=== PATIENT | female | born 1970 | race Caucasian/White ===

== ENCOUNTER → 2018-05-09 10:36 | Outpatient (CLI) | payer OTHER, SELFPAY ==
[2018-05-09 11:12] LABS: Add Manual Diff / Slide Review NO; Basophils Percent Auto 1.1 % (0-2); Eosinophils Percent Auto 6.6 % (2-4); Hemoglobin 14.9 g/dL (12.0-16.0); Mean Corpuscular HGB Conc 33.1 % (30-36); Mean Corpuscular Hemoglobin 28.2 PG (26-34); Mean Corpuscular Volume 85.4 fL (80-100); Neutrophils Absolute Auto 3900 /uL (3000-5900); Neutrophils Percent Auto 60.3 % (50-75); Platelet Count 323 X10^3/uL (150-400); Red Blood Cell Count 5.27 X10^6/uL (4.0-5.2); Red Cell Distribution Width 13.4 % (11.6-14.8); White Blood Cell Count 6.5 X10^3/uL (4.5-11.0)
[2018-05-09 11:18] LABS: Hemoglobin A1C% w Est Avg Glu 6.1 % (4.0-6.0)
[2018-05-09 11:30] LABS: Alanine Aminotransferase 22 IU/L (9-52); Albumin 4.7 g/dL (3.5-5.0); Albumin Globulin Ratio 1.3 (1.0-2.8); Alkaline Phosphatase 75 U/L (38-126); Aspartate Aminotransferase 23 IU/L (14-36); BUN Creatinine Ratio 23.3 (6-22); Bilirubin Total 0.7 mg/dL (0.2-1.3); Blood Urea Nitrogen 21 mg/dL (7-17); Calcium 9.5 mg/dL (8.4-10.2); Carbon Dioxide 26 mmol/L (22-32); Chloride 102 mmol/L (98-107); Cholesterol 161 mg/dL (140-199); Estimated Glomerular Filt Rate > 60.0 mL/min (>60); Globulin 3.6 g/dL (1.7-4.1); Glucose 102 mg/dL (70-100); HDL Cholesterol 52 mg/dL (40-60); HEMOLYSIS < 15 (0-50); LDL Cholesterol Calculated 85 mg/dL (<100); Potassium 4.9 mmol/L (3.4-5.1); Sodium 141 mmol/L (137-145); Total Protein 8.3 g/dL (6.3-8.2); Triglycerides 119 mg/dL (35-150)
[2018-05-09 12:44] LABS: Thyroid Stimulating Hormone 0.12 uIU/mL (0.47-4.68)
== END ==
PROVIDERS: Family Provider Family Medicine; PCP Family Medicine; Visit Provider Family Medicine
DX: I10 Essential (primary) hypertension (principal); E78.2 Mixed hyperlipidemia; E11.9 Type 2 diabetes mellitus without complications
CPT/HCPCS: 36415; 80053; 80061; 83036; 84443; 85025

== ENCOUNTER → 2018-06-17 07:08 | Outpatient (CLI) | payer OTHER, SELFPAY ==
[2018-06-17 09:38] LABS: Free T3, Triiodothyronine Free 3.27 pg/mL (2.77-5.27); Free T4, Direct Thyroxine 1.23 ng/dL (0.78-2.19)
[2018-06-17 09:52] LABS: Thyroid Stimulating Hormone 0.18 uIU/mL (0.47-4.68)
== END ==
PROVIDERS: Family Provider Family Medicine; PCP Family Medicine; Visit Provider Family Medicine
DX: R79.89 Other specified abnormal findings of blood chemistry (principal)
CPT/HCPCS: 36415; 84439; 84443; 84481

== ENCOUNTER → 2018-10-08 09:47 | Outpatient (CLI) | payer OTHER, SELFPAY ==
[2018-10-08 11:01] LABS: Alanine Aminotransferase 28 IU/L (9-52); Albumin 4.6 g/dL (3.5-5.0); Albumin Globulin Ratio 1.5 (1.0-2.8); Alkaline Phosphatase 73 U/L (38-126); Aspartate Aminotransferase 21 IU/L (14-36); BUN Creatinine Ratio 18.9 (6-22); Bilirubin Total 0.7 mg/dL (0.2-1.3); Blood Urea Nitrogen 17 mg/dL (7-17); Calcium 9.8 mg/dL (8.4-10.2); Carbon Dioxide 28 mmol/L (22-32); Chloride 101 mmol/L (98-107); Cholesterol 146 mg/dL (140-199); Estimated Glomerular Filt Rate > 60.0 mL/min (>60); Globulin 3.1 g/dL (1.7-4.1); Glucose 105 mg/dL (70-100); HDL Cholesterol 60 mg/dL (40-60); HEMOLYSIS < 15 (0-50); LDL Cholesterol Calculated 60 mg/dL (<100); Potassium 4.9 mmol/L (3.4-5.1); Sodium 142 mmol/L (137-145); Total Protein 7.7 g/dL (6.3-8.2); Triglycerides 128 mg/dL (35-150)
[2018-10-08 11:05] LABS: Hemoglobin A1C% w Est Avg Glu 6.5 % (4.0-6.0)
== END ==
PROVIDERS: PCP Family Medicine; Visit Provider Family Medicine
DX: E11.9 Type 2 diabetes mellitus without complications (principal); E78.2 Mixed hyperlipidemia; I10 Essential (primary) hypertension
CPT/HCPCS: 36415; 80053; 80061; 83036

== ENCOUNTER → 2018-11-26 12:50 | Outpatient (CLI) | payer OTHER, SELFPAY ==
--- NOTE | 2018-11-26 12:53 | DI.RAD.S_ITS ---
PROCEDURE: XR SHOULDER LT MIN 2V INDICATIONS: l arm pain TECHNIQUE: 3 views of the shoulder were acquired. COMPARISON: None. FINDINGS: Bones: No fractures or dislocations but there is mild a.c. joint osteoarthritic change. No suspicious bony lesions. Visualized ribs appear intact. Soft tissues: No suspicious soft tissue calcifications. IMPRESSION: Mild a.c. joint osteoarthritis, no trauma found. No effusion seen. Dictated by: Boom Trevino M.D. on 11/26/2018 at 13:14 Approved by: Boom Trevino M.D. on 11/26/2018 at 13:44
== END ==
PROVIDERS: Family Provider Family Medicine; PCP Family Medicine; Visit Provider Physician Assistant
DX: M25.512 Pain in left shoulder (principal); M19.012 Primary osteoarthritis, left shoulder
CPT/HCPCS: 73030

== ENCOUNTER → 2018-12-08 06:13 | Outpatient (CLI) | payer OTHER, SELFPAY ==
--- NOTE | 2018-12-08 06:15 | DI.MRI.S_ITS ---
PROCEDURE: MR SHOULDER LT WO CON INDICATIONS: L shoulder pain TECHNIQUE: Noncontrast oblique coronal T2 fast spin echo with fat saturation, oblique sagittal T1 spin echo and T2 fast spin echo with fat saturation, axial T1 spin echo and T2 fast spin echo with fat saturation through the shoulder. COMPARISON: [facility], CR, XR SHOULDER LT MIN 2V, 11/26/2018, 12:53. FINDINGS: Image quality: Excellent. Rotator cuff: There is a small focus of mild partial thickness bursal sided tearing involving the anterior fibers of the supraspinatus. There is mild associated intrasubstance edema tracking along the myotendinous junction consistent with a mild to moderate strain. The infraspinatus demonstrates minimal intrasubstance partial tearing proximally at the myotendinous junction. The subscapularis and teres minor appear intact. No fatty muscular atrophy. Bones and bursae: No bone marrow contusions or fractures. There is mild acromioclavicular joint degeneration. The acromion demonstrates conventional anatomy, without an os acromiale. Trace subacromial-subdeltoid bursal fluid is present. Capsule and soft tissues: There is mild partial tearing of the anteroinferior labrum. In the absence of intra-articular contrast, the labrum and glenohumeral ligaments are incompletely evaluated. There is edema along the inferior glenohumeral ligaments suggestive of a mild sprain as well as partial tearing along the humeral attachment of the anterior inferior glenohumeral ligament. The long head of the biceps tendon demonstrates normal location and morphology. The rotator interval demonstrates mild nonspecific edema which may represent a capsulitis or fibrosis.. The coracohumeral ligament is normal in thickness. IMPRESSION: 1. Small focus of mild partial thickness bursal sided tearing involving the anterior fibers of the supraspinatus as well as a [id number] sprain at its myotendinous junction. There is minimal partial tearing at the myotendinous junction of the infraspinatus. 2. Edema along the inferior glenohumeral ligaments with probable [id number] partial tearing at the humeral attachment of the inferior glenohumeral ligament. Partial tearing is also noted in the anteroinferior labrum. Further evaluation may be obtained with an MR arthrogram if clinically indicated. 3. Mild acromioclavicular joint degeneration with a trace amount of subacromial/subdeltoid bursa fluid. Dictated by: Vinay Wiseman M.D. on 12/08/2018 at 9:13 Approved by: Vinay Wiseman M.D. on 12/08/2018 at 9:30
== END ==
PROVIDERS: Family Provider Family Medicine; PCP Family Medicine; Visit Provider Physician Assistant
DX: M25.512 Pain in left shoulder (principal); M75.112 Incomplete rotator cuff tear or rupture of left shoulder, not specified as traumatic; M19.012 Primary osteoarthritis, left shoulder; R60.9 Edema, unspecified
CPT/HCPCS: 73221

== ENCOUNTER → 2019-01-05 10:54 | Outpatient (CLI) | payer OTHER, SELFPAY ==
[2019-01-05 13:50] LABS: Hemoglobin A1C% w Est Avg Glu 6.1 % (4.0-6.0)
== END ==
PROVIDERS: PCP Family Medicine; Visit Provider Family Medicine
DX: E11.9 Type 2 diabetes mellitus without complications (principal)
CPT/HCPCS: 36415; 83036

== ENCOUNTER → 2019-02-04 09:29 | Outpatient (CLI) | payer OTHER, SELFPAY ==
--- NOTE | 2019-02-04 | DI.MG.S_ITS ---
BILATERAL DIGITAL SCREENING MAMMOGRAM 3D/2D WITH CAD: 02/04/2019 CLINICAL: Routine screening. Comparison is made to exams dated: 02/03/2018 mammogram and 02/01/2017 mammogram - [facility]. The tissue of both breasts is heterogeneously dense. This may lower the sensitivity of mammography. Current study was also evaluated with a Computer Aided Detection (CAD) system. There are benign calcifications in the right breast. No significant masses, calcifications, or other findings are seen in either breast. There has been no significant interval change. IMPRESSION: There is no mammographic evidence of malignancy. A 1 year screening mammogram is recommended. This exam was interpreted at Station ID: [id number]. NOTE: For mammograms, a report in lay terms will be sent to the patient. Approximately 15% of breast malignancies will not be visualized mammographically. In the management of a palpable breast mass, a negative mammogram must not discourage biopsy of a clinically suspicious lesion. Electronically Signed By: Haydee [email or web address]/[email or web address]:02/04/2019 15:18:06 letter sent: Normal Exam ACR BI-RADS Category 2: Benign Finding(s) [id number]
== END ==
PROVIDERS: PCP Family Medicine; Visit Provider Family Medicine
DX: Z12.31 Encounter for screening mammogram for malignant neoplasm of breast (principal)
CPT/HCPCS: 77063; 77067

== ENCOUNTER → 2019-06-26 07:31 | Outpatient (CLI) | payer OTHER, SELFPAY ==
[2019-06-26 08:59] LABS: Add Manual Diff / Slide Review NO; Basophils Absolute Auto 100 /uL (0-100); Basophils Percent Auto 1.4 % (0-2); Eosinophils Absolute Auto 500 /uL (0-450); Eosinophils Percent Auto 7.4 % (2-4); Hematocrit 42.5 % (36-46); Hemoglobin 14.4 g/dL (12.0-16.0); Lymphocytes Absolute Auto 1600 /uL (1100-4500); Mean Corpuscular HGB Conc 33.8 % (30-36); Mean Corpuscular Hemoglobin 28.8 PG (26-34); Mean Corpuscular Volume 85.3 fL (80-100); Monocytes Absolute Auto 600 /uL (0-900); Monocytes Percent Auto 8.4 % (3-14); Neutrophils Absolute Auto 3800 /uL (1500-7000); Neutrophils Percent Auto 57.8 % (50-75); Platelet Count 310 X10^3/uL (150-400); Red Blood Cell Count 4.98 X10^6/uL (4.0-5.2); Red Cell Distribution Width 14.1 % (11.6-14.8); White Blood Cell Count 6.6 X10^3/uL (4.5-11.0)
[2019-06-26 09:18] LABS: Alanine Aminotransferase 22 IU/L (9-52); Albumin 4.5 g/dL (3.5-5.0); Albumin Globulin Ratio 1.4 (1.0-2.8); Alkaline Phosphatase 75 U/L (38-126); Aspartate Aminotransferase 22 IU/L (14-36); BUN Creatinine Ratio 22.2 (6-22); Bilirubin Total 0.7 mg/dL (0.2-1.3); Blood Urea Nitrogen 20 mg/dL (7-17); Calcium 9.6 mg/dL (8.4-10.2); Carbon Dioxide 27 mmol/L (22-32); Chloride 101 mmol/L (98-107); Cholesterol 132 mg/dL (140-199); Estimated Glomerular Filt Rate > 60.0 mL/min (>60); Globulin 3.3 g/dL (1.7-4.1); Glucose 100 mg/dL (70-100); HDL Cholesterol 53 mg/dL (40-60); HEMOLYSIS < 15 (0-50); LDL Cholesterol Calculated 53 mg/dL (<100); Potassium 3.8 mmol/L (3.4-5.1); Sodium 140 mmol/L (137-145); Total Protein 7.8 g/dL (6.3-8.2); Triglycerides 129 mg/dL (35-150)
[2019-06-26 09:21] LABS: Creatinine Urine Random 212.4 mg/dL; Hemoglobin A1C% w Est Avg Glu 6.2 % (4.0-6.0)
[2019-06-26 09:23] LABS: Microalbumi Creatinin Ratio Ur 8.4 ug/mg CR (<30); Microalbumin Urine Random 1.8 mg/dL (0-1.6)
[2019-06-26 09:49] LABS: Thyroid Stimulating Hormone 1.33 uIU/mL (0.47-4.68)
== END ==
PROVIDERS: PCP Family Medicine; Visit Provider Family Medicine
DX: E78.2 Mixed hyperlipidemia (principal); E11.9 Type 2 diabetes mellitus without complications; I10 Essential (primary) hypertension; Z51.81 Encounter for therapeutic drug level monitoring
CPT/HCPCS: 36415; 80053; 80061; 82043; 82570; 83036; 84443; 85025

== ENCOUNTER 2019-08-03 13:00 | Outpatient (RCR) | payer OTHER, SELFPAY ==
--- NOTE | 2019-01-15 16:29 | PT.OIE ---
Current Diagnoses Pain in left shoulder (01/15/19) Unspecified rotator cuff tear or rupture of left shoulder, not specified as traumatic (01/15/19) Past Medical History (Last Reviewed 05/09/18 @ 10:05 by Cherelle Lopez DO) Diabetes (Chronic 2015) Hyperlipemia (Chronic Unknown) Hypertension (Chronic Unknown) Shingles (Chronic Unknown) Provider Visit Care Team Role Provider Type Cherelle Lopez DO Primary Care Provider Physician Specialty: Family Practice Address: [address] [place] [address], [id number] Email: [email or web address] Cisneros Attending Provider Advanced Yarding And Folding Machine Operator Specialty: [facility] Practice Address: [address] [place] [address], [id number] Email: Physical Therapy Initial Evaluation PT-OP-A Visit Information Start: 01/15/19 11:28 Freq: Status: Active Protocol: Document 01/15/19 10:30 AMB (Rec: 01/15/19 15:48 AMB [email or web address]) Out-Patient Physical Therapy Visit Information Visit Information Visit Type Initial Evaluation Visit Start Time 10:30 Visit Stop Time 11:15 Total Visit Minutes 45 Visit Number 1 PT-OP-B Current Condition Start: 01/15/19 11:28 Freq: Status: Active Protocol: Document 01/15/19 10:30 AMB (Rec: 01/15/19 15:48 AMB [email or web address]) Current Condition History of Current Condition Onset Date Oct 21 or Nov 22 Current Complaints Left shoulder pain History of Current Condition Shamika noted increased shoulder pain after lifting her mother up from the floor multiple times. She has been noticing increased pain since. 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 She has not been using a sling , but sometimes hooks her arm in her shirt becaue it feels better. Prior Treatments and Tests MRI on 12/08/18 showed mild supraspinatus tear, minimal partial tearing at mytendinous junction of infraspinatus, mild-moderate partial tear at inferiro glenohumeral ligament , and partial tearing at anteroinferior labrum. Prior Functional Status Baseline Function- ADL's Independent Baseline Function- Mobility Independent Current Functional Impairments (Reported) Functional Limitations- ADL's She finds upper body dressing and washing her hair painful. 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 Personal Factors Other Personal Factors That May Effect DMII Therapy/Recovery PT-OP-C Subjective Start: 01/15/19 11:28 Freq: Status: Active Protocol: Document 01/15/19 10:30 AMB (Rec: 01/15/19 15:48 AMB [email or web address]) Patient Questionnaires Quick Dash- Upper Extremity Quick Dash UE Score 43 Quick Dash UE Impairment 40 to 59% Impaired (Score 40- 59) OP-PT Pain Assessment Pain Assessment Grid Paper Pain Assessment Grid Completed Yes Location Left Shoulder Pain Location Details Anterior shoulder and down the arm Intensity 5 Scale Used Numeric (1 - 10) PT-OP-K Range of Motion Start: 01/15/19 11:28 Freq: Status: Active Protocol: Document 01/15/19 10:30 AMB (Rec: 01/15/19 16:00 AMB [email or web address]) Shoulder Goniometric Range of Motion Shoulder Measured in Degrees Right Active Shoulder ROM WFL Yes Left Passive Testing Position Supine Flexion 90 Abduction 65 External Rotation at 0 degrees Abduction 24 Left Active Testing Position Standing Flexion 80 Abduction 45 Internal Rotation Behind Back (text) gluteals PT-OP-M Strength Start: 01/15/19 11:28 Freq: Status: Active Protocol: Document 01/15/19 10:30 AMB (Rec: 01/15/19 16:00 AMB [email or web address]) Shoulder Strength Shoulder Manual Muscle Testing Right Flexion 3- Fair- Extension 3+ Fair+ Abduction (C5) 2+ Poor+ External Rotation 3 Fair Internal Rotation 3 Fair PT-OP-Q Treatments Start: 01/15/19 11:28 Freq: Status: Active Protocol: Document 01/15/19 10:30 AMB (Rec: 01/15/19 16:00 AMB [email or web address]) Therapeutic Exercises Supine Exercises 1 Supine Exercise Name AAROM: flex, abd, ER Reps/Minutes 2 Comments cane Standing Exercises 1 Standing Exercise Name isometrics: ER, ext, flx Reps/Minutes 2 PT-OP-T Assessment and Plan Start: 01/15/19 11:28 Freq: Status: Active Protocol: Document 01/15/19 10:30 AMB (Rec: 01/15/19 16:04 AMB [email or web address]) Physical Therapy Assessment Rehab Potential Rehabilitation Potential Good Evaluation Complexity Number of Personal Factors/Comorbidities 1-2 Number of Body Systems Impaired 4 or More Clinical Presentation at Evaluation Evolving Impairments Impairments Functional Activities Pain ROM Strength Goals Three Impairment ADLs Short Term Goal (STG) Shamika will perform all upper body dressing with 2/10 pain or less. STG Duration 4 weeks Data Transcriber Goal (LTG) Shamika will wash her hair with her left arm without an increase in pain. LTG Duration 8 weeks Two Impairment Strength Short Term Goal (STG) Shamika will lift a 10# box from the floor to shoulder height with good body mechanics without an increase in baseline pain. STG Duration 4 weeks Senior Care Goal (LTG) Shamika will be independent and consistent with a HEP for ROM and strengthening. LTG Duration 8 weeks One Impairment ROM Short Term Goal (STG) Shamika will increase her PROM to 120 degrees of flexion and abduction. STG Duration 4 weeks Senior Care Goal (LTG) Shamika will increase her AROM to 120 degress of flexion and abduction. LTG Duration 8 weeks Assessment Summary Assessment Shamika attends physical therapy with multiple small partial tears in her rotator cuff, labrum, and inferior glenohumeral ligament. She has been very protective of the shoulder due to pain (that has been increasing) and is now losing passive range of motion. 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 Physical Therapy Plan Frequency and Duration Frequency of Treatment 2x/Week Duration of Treatment 8 weeks Plan of Care Start Date 01/15/19 Plan of Care End Date 03/12/19 Therapeutic Interventions Therapeutic Interventions Aquatic Therapy Home Exercise Program Joint Mobilizations Manual Therapy Neuromuscular Re-education Self-Care/Home Management Soft Tissue Mobilization Taping Therapeutic Activities Therapeutic Exercises Modalities Cold Pack/Ice Massage Electric Stimulation Hot Packs Ultrasound Next Visit Focus/Plan Next Note Type Treatment Note Next Visit Plan Progress PROM and AAROM then progress to scapular stabilization
--- NOTE | 2019-01-15 16:29 | PT.OPPOC ---
Current Diagnoses Pain in left shoulder (01/15/19) Unspecified rotator cuff tear or rupture of left shoulder, not specified as traumatic (01/15/19) Provider Visit Care Team Role Provider Type Cherelle Lopez DO Primary Care Provider Physician Specialty: [facility] Address: [address] [place] [address], [id number] Email: [email or web address] CHELA Cisneros Attending Provider Advanced Chief Of Party Specialty: [facility] Address: [address] [place] [address], [id number] Email: Plan Of Care PT-OP-T Assessment and Plan Start: 01/15/19 11:28 Freq: Status: Active Protocol: Document 01/15/19 10:30 AMB (Rec: 01/15/19 16:04 AMB [email or web address]) Physical Therapy Assessment Rehab Potential Rehabilitation Potential Good Evaluation Complexity Number of Personal Factors/Comorbidities 1-2 Number of Body Systems Impaired 4 or More Clinical Presentation at Evaluation Evolving Impairments Impairments Functional Activities Pain ROM Strength Goals Three Impairment ADLs Short Term Goal (STG) Shamika will perform all upper body dressing with 2/10 pain or less. STG Duration 4 weeks [facility] Goal (LTG) Shamika will wash her hair with her left arm without an increase in pain. LTG Duration 8 weeks Two Impairment Strength Short Term Goal (STG) Shamika will lift a 10# box from the floor to shoulder height with good body mechanics without an increase in baseline pain. STG Duration 4 weeks Cart Attendant Goal (LTG) Shamika will be independent and consistent with a HEP for ROM and strengthening. LTG Duration 8 weeks One Impairment ROM Short Term Goal (STG) Shamika will increase her PROM to 120 degrees of flexion and abduction. STG Duration 4 weeks Cart Attendant Goal (LTG) Shamika will increase her AROM to 120 degress of flexion and abduction. LTG Duration 8 weeks Assessment Summary Assessment Shamika attends physical therapy with multiple small partial tears in her rotator cuff, labrum, and inferior glenohumeral ligament. She has been very protective of the shoulder due to pain (that has been increasing) and is now losing passive range of motion. 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 Physical Therapy Plan Frequency and Duration Frequency of Treatment 2x/Week Duration of Treatment 8 weeks Plan of Care Start Date 01/15/19 Plan of Care End Date 03/12/19 Therapeutic Interventions Therapeutic Interventions Aquatic Therapy Home Exercise Program Joint Mobilizations Manual Therapy Neuromuscular Re-education Self-Care/Home Management Soft Tissue Mobilization Taping Therapeutic Activities Therapeutic Exercises Modalities Cold Pack/Ice Massage Electric Stimulation Hot Packs Ultrasound Next Visit Focus/Plan Next Note Type Treatment Note Next Visit Plan Progress PROM and AAROM then progress to scapular stabilization Plan of Care Dates Plan of Care Start Date 01/15/19 Plan of Care End Date 03/12/19 Please Sign and Return: I have reviewed this Plan of Care and certify that the skilled therapy services above are required to meet the patient?s needs. Physician Signature Date Printed Name and Credentials Clinical Instructor Signature Printed Name and Credentials
--- NOTE | 2019-01-19 16:06 | PT.OTN ---
Current Diagnoses Pain in left shoulder (01/19/19) Physical Therapy Treatment Note PT-OP-A Visit Information Start: 01/15/19 11:28 Freq: Status: Active Protocol: Document 01/19/19 13:45 BS (Rec: 01/19/19 15:58 BS [email or web address]) Out-Patient Physical Therapy Visit Information Visit Information Visit Type Treatment Note Visit Start Time 01:45 Visit Stop Time 02:28 Total Visit Minutes 43 Visit Number 2 PT-OP-B Current Condition Start: 01/15/19 11:28 Freq: Status: Active Protocol: Document 01/15/19 10:30 AMB (Rec: 01/15/19 15:48 AMB [email or web address]) Current Condition History of Current Condition Onset Date Oct 21 or Nov 22 Current Complaints Left shoulder pain History of Current Condition Shamika noted increased shoulder pain after lifting her mother up from the floor multiple times. She has been noticing increased pain since. 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 She has not been using a sling , but sometimes hooks her arm in her shirt becaue it feels better. Prior Treatments and Tests MRI on 12/08/18 showed mild supraspinatus tear, minimal partial tearing at mytendinous junction of infraspinatus, mild-moderate partial tear at inferiro glenohumeral ligament , and partial tearing at anteroinferior labrum. Prior Functional Status Baseline Function- ADL's Independent Baseline Function- Mobility Independent Current Functional Impairments (Reported) Functional Limitations- ADL's She finds upper body dressing and washing her hair painful. 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 Personal Factors Other Personal Factors That May Effect DMII Therapy/Recovery PT-OP-C Subjective Start: 01/15/19 11:28 Freq: Status: Active Protocol: Document 01/19/19 13:45 BS (Rec: 01/19/19 15:35 BS [email or web address]) OP-PT Subjective Patient Comments Patient Comments Pt reports slight improvements in ability to move LUE and states she has been compliant with prescribed HEP for L shoulder AAROM. Continues to have difficulty with L shoulder ROM, pain, and weakness. Patient Reported Progress Improving PT-OP-K Range of Motion Start: 01/15/19 11:28 Freq: Status: Active Protocol: Document 01/15/19 10:30 AMB (Rec: 01/15/19 16:00 AMB [email or web address]) Shoulder Goniometric Range of Motion Shoulder Measured in Degrees Right Active Shoulder ROM WFL Yes Left Passive Testing Position Supine Flexion 90 Abduction 65 External Rotation at 0 degrees Abduction 24 Left Active Testing Position Standing Flexion 80 Abduction 45 Internal Rotation Behind Back (text) gluteals PT-OP-M Strength Start: 01/15/19 11:28 Freq: Status: Active Protocol: Document 01/15/19 10:30 AMB (Rec: 01/15/19 16:00 AMB [email or web address]) Shoulder Strength Shoulder Manual Muscle Testing Right Flexion 3- Fair- Extension 3+ Fair+ Abduction (C5) 2+ Poor+ External Rotation 3 Fair Internal Rotation 3 Fair PT-OP-Q Treatments Start: 01/15/19 11:28 Freq: Status: Active Protocol: Document 01/19/19 13:45 BS (Rec: 01/19/19 15:35 BS [email or web address]) Therapeutic Exercises Supine Exercises 2 Supine Exercise Name Serratus Punch at 60 deg shoulder flexion Side left Reps/Minutes x5 Comments Pt reports aching pain into L bicep 1 Supine Exercise Name Supine LUE AAROM cane flexion, ER/IR Side bilateral Reps/Minutes x10 each Comments pain with AAROM cane ER Sitting Exercises 2 Sitting Exercise Name Shoulder Rolls Posterior Direction Side bilateral Reps/Minutes x15 1 Sitting Exercise Name AAROM Pulleys (flexion & 20 deg scapular plane) Side left Equipment Used Pulleys Reps/Minutes x15 each Standing Exercises 2 Standing Exercise Name Scapular Retraction Side bilateral Resistance #1 band Reps/Minutes x10, 2 hold 1 Standing Exercise Name L shoulder isometrics (flexion , extension, abduction) Side left Reps/Minutes x10 each, 3-5 hold Manual Therapy Treatment Joint Mobilizations 1 Joint L Glenohumeral (posterior, inferior) Grade II Body Position Supine Reps/Duration 4x30 each PT-OP-R Modalities Start: 01/15/19 11:28 Freq: Status: Active Protocol: Document 01/19/19 13:45 BS (Rec: 01/19/19 15:49 BS [email or web address]) Hot Pack/Cold Pack Treatment Cold Pack Location L shoulder Patient Position Hooklying Treatment Duration (minutes) 10 Patient Tolerance Good PT-OP-T Assessment and Plan Start: 01/15/19 11:28 Freq: Status: Active Protocol: Document 01/19/19 13:45 BS (Rec: 01/19/19 15:56 BS [email or web address]) Physical Therapy Assessment Rehab Potential Rehabilitation Potential Fair Progress Towards Goals Progress Towards Goals Progressing Toward Goals Progress Comments Pt making slow progress toward goals, continues to report dull burning pain/ache in L upper arm, significant limitations in ROM but is moving her shoulder more. Pt reports compliance with current prescribed HEP. Assessment Summary Assessment Pt tolerated PT session well today. AAROM cane ER is significantly limited and painful for pt. Pt educated of importance of LUE mobility within pain-free ROM. Addition of posterior shoulder rolls, AAROM kim flexion & 20 deg scaption, and #1 resistance band B shoulder retraction. L glenohumeral joint mobs well tolerated, PROM ER painful and limited. Session concluded with CP x10min for pain and inflammation reduction. Continue POC and progress as tolerated. Physical Therapy Plan Next Visit Focus/Plan Next Note Type Treatment Note Next Visit Plan Continue with AAROM, L GH joint mobilizations, L shoulder isometrics, and progress to more PROM as tolerated. Assess response to CP.
--- NOTE | 2019-01-21 15:34 | PT.OTN ---
Current Diagnoses Pain in left shoulder (01/21/19) Physical Therapy Treatment Note PT-OP-A Visit Information Start: 01/15/19 11:28 Freq: Status: Active Protocol: Document 01/21/19 09:45 BS (Rec: 01/21/19 11:49 BS [email or web address]) Out-Patient Physical Therapy Visit Information Visit Information Visit Type Treatment Note Visit Start Time 09:45 Visit Stop Time 10:28 Total Visit Minutes 43 Visit Number 3 PT-OP-B Current Condition Start: 01/15/19 11:28 Freq: Status: Active Protocol: Document 01/15/19 10:30 AMB (Rec: 01/15/19 15:48 AMB [email or web address]) Current Condition History of Current Condition Onset Date Oct 21 or Nov 22 Current Complaints Left shoulder pain History of Current Condition Shamika noted increased shoulder pain after lifting her mother up from the floor multiple times. She has been noticing increased pain since. 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 She has not been using a sling , but sometimes hooks her arm in her shirt becaue it feels better. Prior Treatments and Tests MRI on 12/08/18 showed mild supraspinatus tear, minimal partial tearing at mytendinous junction of infraspinatus, mild-moderate partial tear at inferiro glenohumeral ligament , and partial tearing at anteroinferior labrum. Prior Functional Status Baseline Function- ADL's Independent Baseline Function- Mobility Independent Current Functional Impairments (Reported) Functional Limitations- ADL's She finds upper body dressing and washing her hair painful. 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 Personal Factors Other Personal Factors That May Effect DMII Therapy/Recovery PT-OP-C Subjective Start: 01/15/19 11:28 Freq: Status: Active Protocol: Document 01/21/19 09:45 BS (Rec: 01/21/19 11:49 BS [email or web address]) OP-PT Subjective Patient Comments Patient Comments Pt reports L shoulder muscle aching when waking the morning following last PT session, subsided with activity throughout day. PT-OP-K Range of Motion Start: 01/15/19 11:28 Freq: Status: Active Protocol: Document 01/15/19 10:30 AMB (Rec: 01/15/19 16:00 AMB [email or web address]) Shoulder Goniometric Range of Motion Shoulder Measured in Degrees Right Active Shoulder ROM WFL Yes Left Passive Testing Position Supine Flexion 90 Abduction 65 External Rotation at 0 degrees Abduction 24 Left Active Testing Position Standing Flexion 80 Abduction 45 Internal Rotation Behind Back (text) gluteals PT-OP-M Strength Start: 01/15/19 11:28 Freq: Status: Active Protocol: Document 01/15/19 10:30 AMB (Rec: 01/15/19 16:00 AMB [email or web address]) Shoulder Strength Shoulder Manual Muscle Testing Right Flexion 3- Fair- Extension 3+ Fair+ Abduction (C5) 2+ Poor+ External Rotation 3 Fair Internal Rotation 3 Fair PT-OP-Q Treatments Start: 01/15/19 11:28 Freq: Status: Active Protocol: Document 01/21/19 09:45 BS (Rec: 01/21/19 11:49 BS [email or web address]) Therapeutic Exercises Supine Exercises 2 Supine Exercise Name Serratus punch 70 deg L shoudler flexion Side left Reps/Minutes x10 Comments less pain today with exercise following L GH joint mobs 1 Supine Exercise Name Supine LUE AAROM flexion Reps/Minutes x15 each Comments held ER today d/t increased pain during. Sitting Exercises 2 Sitting Exercise Name Shoulder rolls, posterior Reps/Minutes x20 1 Sitting Exercise Name AAROM Pulleys (flexion, 20 deg scaption) Side left Equipment Used Pulleys Reps/Minutes 2 min each Standing Exercises 3 Standing Exercise Name Serratus punch/scap protraction with small ball Side left Reps/Minutes x10 2 Standing Exercise Name Scapular retraction Side bilateral Resistance #1 Reps/Minutes x10 without resistance, x10 with #1 band 1 Standing Exercise Name L shoulder isometrics (flexion , extension, abduction, ER) Side left Reps/Minutes x10 each, 5 hold Manual Therapy Treatment Joint Mobilizations 1 Joint L Glenohumeral (posterior, anterior, inferior) Grade II Body Position Supine Reps/Duration total 8 min Manual Techniques 1 Type PROM L shoulder flexion, abduction, ER Body Position Hooklying Reps/Duration 10 min Comments following joint mobs PT-OP-R Modalities Start: 01/15/19 11:28 Freq: Status: Active Protocol: Document 01/21/19 09:45 BS (Rec: 01/21/19 11:49 BS [email or web address]) Hot Pack/Cold Pack Treatment Cold Pack Comments Pt declined need for CP today at end of session. PT-OP-T Assessment and Plan Start: 01/15/19 11:28 Freq: Status: Active Protocol: Document 01/21/19 09:45 BS (Rec: 01/21/19 11:49 BS [email or web address]) Physical Therapy Assessment Assessment Summary Assessment Pt tolerated session well today with increased repetitions of scapular strengthening isometrics and additional ther ex. Continue POC and progress with AAROM, PROM as tolerated. Physical Therapy Plan Next Visit Focus/Plan Next Visit Plan AAROM progression, scapular isometrics, PROM as tolerated. Trial standing bicep curls, tricep ext, lat pulldowns.
--- NOTE | 2019-01-26 15:47 | PT.OTN ---
Current Diagnoses Pain in left shoulder (01/26/19) Physical Therapy Treatment Note PT-OP-A Visit Information Start: 01/15/19 11:28 Freq: Status: Active Protocol: Document 01/26/19 11:58 BS (Rec: 01/26/19 12:08 BS [email or web address]) Out-Patient Physical Therapy Visit Information Visit Information Visit Type Treatment Note Visit Start Time 08:15 Visit Stop Time 09:00 Total Visit Minutes 45 Visit Number 4 PT-OP-B Current Condition Start: 01/15/19 11:28 Freq: Status: Active Protocol: Document 01/15/19 10:30 AMB (Rec: 01/15/19 15:48 AMB [email or web address]) Current Condition History of Current Condition Onset Date Oct 21 or Nov 22 Current Complaints Left shoulder pain History of Current Condition Shamika noted increased shoulder pain after lifting her mother up from the floor multiple times. She has been noticing increased pain since. 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 She has not been using a sling , but sometimes hooks her arm in her shirt becaue it feels better. Prior Treatments and Tests MRI on 12/08/18 showed mild supraspinatus tear, minimal partial tearing at mytendinous junction of infraspinatus, mild-moderate partial tear at inferiro glenohumeral ligament , and partial tearing at anteroinferior labrum. Prior Functional Status Baseline Function- ADL's Independent Baseline Function- Mobility Independent Current Functional Impairments (Reported) Functional Limitations- ADL's She finds upper body dressing and washing her hair painful. 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 Personal Factors Other Personal Factors That May Effect DMII Therapy/Recovery PT-OP-C Subjective Start: 01/15/19 11:28 Freq: Status: Active Protocol: Document 01/26/19 11:58 BS (Rec: 01/26/19 12:08 BS [email or web address]) OP-PT Subjective Patient Comments Patient Comments Pt states that her shoulder felt fine over the weekend, no muscle soreness following last session. PT-OP-K Range of Motion Start: 01/15/19 11:28 Freq: Status: Active Protocol: Document 01/15/19 10:30 AMB (Rec: 01/15/19 16:00 AMB [email or web address]) Shoulder Goniometric Range of Motion Shoulder Measured in Degrees Right Active Shoulder ROM WFL Yes Left Passive Testing Position Supine Flexion 90 Abduction 65 External Rotation at 0 degrees Abduction 24 Left Active Testing Position Standing Flexion 80 Abduction 45 Internal Rotation Behind Back (text) gluteals PT-OP-M Strength Start: 01/15/19 11:28 Freq: Status: Active Protocol: Document 01/15/19 10:30 AMB (Rec: 01/15/19 16:00 AMB [email or web address]) Shoulder Strength Shoulder Manual Muscle Testing Right Flexion 3- Fair- Extension 3+ Fair+ Abduction (C5) 2+ Poor+ External Rotation 3 Fair Internal Rotation 3 Fair PT-OP-Q Treatments Start: 01/15/19 11:28 Freq: Status: Active Protocol: Document 01/26/19 11:58 BS (Rec: 01/26/19 12:08 BS [email or web address]) Cardio Equipment Upper Body Ergometer (UBE) Duration (Minutes) 3 Seat Position 10 Other forward/backward 1.5 min each Therapeutic Exercises Supine Exercises 2 Supine Exercise Name Serratus Punch Side left Reps/Minutes 1x10 no wt, 1x10 1# Comments No pain. Sidelying Exercises 1 Sidelying Exercise Name shoulder ER Side left Resistance no weight Reps/Minutes x12 Comments VCs for correct form Sitting Exercises 1 Sitting Exercise Name AAROM Pulleys (flexion, 20 deg scaption) Side left Equipment Used Pulleys Standing Exercises 4 Standing Exercise Name Wall walks Side left Reps/Minutes x20 Comments Pain free range 2 Standing Exercise Name Scapular retraction Side bilateral Resistance #1 band Reps/Minutes 2x8 1 Standing Exercise Name Isometrics: flex/ext/abd/ER/IR Side left Reps/Minutes 2x10 each, 5 sec hold Manual Therapy Treatment Joint Mobilizations 1 Joint L Glenohumeral (posterior, anterior, inferior) Grade II Body Position Supine Reps/Duration 7 min Comments Joint mobilizations followed by PROM flex/abduction/ER. PT-OP-R Modalities Start: 01/15/19 11:28 Freq: Status: Active Protocol: Document 01/26/19 11:58 BS (Rec: 01/26/19 12:08 BS [email or web address]) Hot Pack/Cold Pack Treatment Cold Pack Location L shoulder Patient Position Hooklying Patient Tolerance Good Comments Pt requested CP at end of session folowing additional strengthening exercises. PT-OP-T Assessment and Plan Start: 01/15/19 11:28 Freq: Status: Active Protocol: Document 01/26/19 11:58 BS (Rec: 01/26/19 12:08 BS [email or web address]) Physical Therapy Assessment Assessment Summary Assessment Pt's flexion/abd ROM improving but still not WFL. Pt demo's decreased strength of L RC musculature. Continue with ROM /Strengthening as tolerated. Physical Therapy Plan Next Visit Focus/Plan Next Visit Plan Progression of RC strengthening. Add bicep curls , triceps extension, lat pulldowns next session.
--- NOTE | 2019-01-28 11:12 | PT.OTN ---
Current Diagnoses Pain in left shoulder (01/28/19) Physical Therapy Treatment Note PT-OP-A Visit Information Start: 01/15/19 11:28 Freq: Status: Active Protocol: Document 01/28/19 10:30 DCW (Rec: 01/28/19 11:12 DCW [id number]) Out-Patient Physical Therapy Visit Information Visit Information Visit Type Treatment Note Visit Start Time 10:30 Visit Stop Time 11:15 Total Visit Minutes 45 Visit Number 5 PT-OP-B Current Condition Start: 01/15/19 11:28 Freq: Status: Active Protocol: Document 01/15/19 10:30 AMB (Rec: 01/15/19 15:48 AMB [email or web address]) Current Condition History of Current Condition Onset Date Oct 21 or Nov 22 Current Complaints Left shoulder pain History of Current Condition Shamika noted increased shoulder pain after lifting her mother up from the floor multiple times. She has been noticing increased pain since. 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 She has not been using a sling , but sometimes hooks her arm in her shirt becaue it feels better. Prior Treatments and Tests MRI on 12/08/18 showed mild supraspinatus tear, minimal partial tearing at mytendinous junction of infraspinatus, mild-moderate partial tear at inferiro glenohumeral ligament , and partial tearing at anteroinferior labrum. Prior Functional Status Baseline Function- ADL's Independent Baseline Function- Mobility Independent Current Functional Impairments (Reported) Functional Limitations- ADL's She finds upper body dressing and washing her hair painful. 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 Personal Factors Other Personal Factors That May Effect DMII Therapy/Recovery PT-OP-C Subjective Start: 01/15/19 11:28 Freq: Status: Active Protocol: Document 01/28/19 10:30 DCW (Rec: 01/28/19 11:12 DCW [id number]) OP-PT Subjective Patient Comments Patient Comments Pt reports she really flaired up her shoulder at work yesterday after using a heavy- duty stapler without thinking about it. PT-OP-K Range of Motion Start: 01/15/19 11:28 Freq: Status: Active Protocol: Document 01/15/19 10:30 AMB (Rec: 01/15/19 16:00 AMB [email or web address]) Shoulder Goniometric Range of Motion Shoulder Measured in Degrees Right Active Shoulder ROM WFL Yes Left Passive Testing Position Supine Flexion 90 Abduction 65 External Rotation at 0 degrees Abduction 24 Left Active Testing Position Standing Flexion 80 Abduction 45 Internal Rotation Behind Back (text) gluteals PT-OP-M Strength Start: 01/15/19 11:28 Freq: Status: Active Protocol: Document 01/15/19 10:30 AMB (Rec: 01/15/19 16:00 AMB [email or web address]) Shoulder Strength Shoulder Manual Muscle Testing Right Flexion 3- Fair- Extension 3+ Fair+ Abduction (C5) 2+ Poor+ External Rotation 3 Fair Internal Rotation 3 Fair PT-OP-Q Treatments Start: 01/15/19 11:28 Freq: Status: Active Protocol: Document 01/28/19 10:30 DCW (Rec: 01/28/19 11:12 DCW [id number]) Cardio Equipment Upper Body Ergometer (UBE) Duration (Minutes) 3 Seat Position 10 Other forward/backward 1.5 min each Therapeutic Exercises Supine Exercises 2 Supine Exercise Name Serratus Punch Side left Reps/Minutes 2x10 Comments No pain. Sitting Exercises 2 Sitting Exercise Name Shoulder rolls, posterior Reps/Minutes x20 1 Sitting Exercise Name AAROM Pulleys (flexion, 20 deg scaption) Side left Equipment Used Pulleys Standing Exercises 5 Standing Exercise Name Shoulder Extension Side bilateral Resistance Lv 1 Equipment Used T-band 4 Standing Exercise Name Wall walks - flex/scaption Side left Reps/Minutes x20 Comments Pain free range 3 Standing Exercise Name Serratus punch/scap protraction with small ball Side left Reps/Minutes x10 2 Standing Exercise Name Scapular retraction Side bilateral Resistance #2 band Reps/Minutes 2x8 Manual Therapy Treatment Joint Mobilizations 1 Joint L Glenohumeral (posterior, anterior, inferior) Grade II Body Position Supine Reps/Duration 6 min Comments Joint mobilizations followed by PROM flex/abduction/ER. Manual Techniques 1 Type PROM L shoulder flexion, abduction, ER Body Position Hooklying Reps/Duration 10 min Comments following joint mobs PT-OP-R Modalities Start: 01/15/19 11:28 Freq: Status: Active Protocol: Document 01/26/19 11:58 BS (Rec: 01/26/19 12:08 BS [email or web address]) Hot Pack/Cold Pack Treatment Cold Pack Location L shoulder Patient Position Hooklying Patient Tolerance Good Comments Pt requested CP at end of session folowing additional strengthening exercises. PT-OP-T Assessment and Plan Start: 01/15/19 11:28 Freq: Status: Active Protocol: Document 01/28/19 10:30 DCW (Rec: 01/28/19 11:12 DCW [email or web address]) Physical Therapy Assessment Goals Three Impairment ADLs Short Term Goal (STG) Shamika will perform all upper body dressing with 2/10 pain or less. STG Duration 4 weeks Nursing Home Goal (LTG) Shamika will wash her hair with her left arm without an increase in pain. LTG Duration 8 weeks Two Impairment Strength Short Term Goal (STG) Shamika will lift a 10# box from the floor to shoulder height with good body mechanics without an increase in baseline pain. STG Duration 4 weeks Tester Armature Or Fields Goal (LTG) Shamika will be independent and consistent with a HEP for ROM and strengthening. LTG Duration 8 weeks One Impairment ROM Short Term Goal (STG) Shamika will increase her PROM to 120 degrees of flexion and abduction. STG Duration 4 weeks Tester Arm[employer] Or Fields Goal (LTG) Shamika will increase her AROM to 120 degress of flexion and abduction. LTG Duration 8 weeks Assessment Summary Assessment Pt showing slow improvement with overall ROM and strength, however still significantly limited due to pain. Pt should benefit from continued therapy focusing on strengthening and ROM Physical Therapy Plan Next Visit Focus/Plan Next Note Type Treatment Note Next Visit Plan Progression of RC strengthening. Add bicep curls , tricep extension, lat pulldowns next session.
--- NOTE | 2019-02-02 15:41 | PT.OTN ---
Current Diagnoses Pain in left shoulder (02/02/19) Physical Therapy Treatment Note PT-OP-A Visit Information Start: 01/15/19 11:28 Freq: Status: Active Protocol: Document 02/02/19 14:00 BS (Rec: 02/02/19 14:56 BS [email or web address]) Out-Patient Physical Therapy Visit Information Visit Information Visit Type Treatment Note Visit Start Time 13:45 Visit Stop Time 14:30 Total Visit Minutes 45 Visit Number 6 PT-OP-B Current Condition Start: 01/15/19 11:28 Freq: Status: Active Protocol: Document 01/15/19 10:30 AMB (Rec: 01/15/19 15:48 AMB [email or web address]) Current Condition History of Current Condition Onset Date Oct 21 or Nov 22 Current Complaints Left shoulder pain History of Current Condition Shamika noted increased shoulder pain after lifting her mother up from the floor multiple times. She has been noticing increased pain since. 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 She has not been using a sling , but sometimes hooks her arm in her shirt becaue it feels better. Prior Treatments and Tests MRI on 12/08/18 showed mild supraspinatus tear, minimal partial tearing at mytendinous junction of infraspinatus, mild-moderate partial tear at inferiro glenohumeral ligament , and partial tearing at anteroinferior labrum. Prior Functional Status Baseline Function- ADL's Independent Baseline Function- Mobility Independent Current Functional Impairments (Reported) Functional Limitations- ADL's She finds upper body dressing and washing her hair painful. 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 Personal Factors Other Personal Factors That May Effect DMII Therapy/Recovery PT-OP-C Subjective Start: 01/15/19 11:28 Freq: Status: Active Protocol: Document 02/02/19 14:00 BS (Rec: 02/02/19 14:56 BS [email or web address]) OP-PT Subjective Patient Comments Patient Comments Pt states her shoulder hurts more this afternoon following work this morning with repetitive reaching. PT-OP-K Range of Motion Start: 01/15/19 11:28 Freq: Status: Active Protocol: Document 01/15/19 10:30 AMB (Rec: 03/14/19 16:00 AMB [email or web address]) Shoulder Goniometric Range of Motion Shoulder Measured in Degrees Right Active Shoulder ROM WFL Yes Left Passive Testing Position Supine Flexion 90 Abduction 65 External Rotation at 0 degrees Abduction 24 Left Active Testing Position Standing Flexion 80 Abduction 45 Internal Rotation Behind Back (text) gluteals PT-OP-M Strength Start: 01/15/19 11:28 Freq: Status: Active Protocol: Document 01/15/19 10:30 AMB (Rec: 01/15/19 16:00 AMB [email or web address]) Shoulder Strength Shoulder Manual Muscle Testing Right Flexion 3- Fair- Extension 3+ Fair+ Abduction (C5) 2+ Poor+ External Rotation 3 Fair Internal Rotation 3 Fair PT-OP-Q Treatments Start: 01/15/19 11:28 Freq: Status: Active Protocol: Document 02/02/19 14:00 BS (Rec: 02/02/19 14:56 BS [email or web address]) Therapeutic Exercises Sitting Exercises 2 Sitting Exercise Name Shoulder rolls, posterior Reps/Minutes x20 1 Sitting Exercise Name AAROM Pulleys (flexion, 45 deg scaption, abduction) Side left Equipment Used Pulleys Comments addition of abd today. Standing Exercises 7 Standing Exercise Name Tband chaudhry Resistance #1 band Reps/Minutes x8 Comments LUE extended, R into ext/abd/ ER 6 Standing Exercise Name Cane AAROM abd, ext, ER Side left Reps/Minutes x20 each Comments VCs to maintain add of shoulder 2 Standing Exercise Name Scapular retraction Side bilateral Resistance #3 band Reps/Minutes x20 1 Standing Exercise Name Isometrics: flex/ext/abd/ER/IR Side left Reps/Minutes x20 each, 5 sec hold Manual Therapy Treatment Joint Mobilizations 1 Joint L GH: ant, post. Grade III Body Position Hooklying Reps/Duration x5 min Comments Joint mobilizations with PROM flex, abd, ER. Manual Techniques 1 Type PROM L shoulder flexion, abduction, ER Body Position Hooklying Reps/Duration x5 min Comments intermittent with joint mobs PT-OP-R Modalities Start: 01/15/19 11:28 Freq: Status: Active Protocol: Document 01/26/19 11:58 BS (Rec: 01/26/19 12:08 BS [email or web address]) Hot Pack/Cold Pack Treatment Cold Pack Location L shoulder Patient Position Hooklying Patient Tolerance Good Comments Pt requested CP at end of session folowing additional strengthening exercises. PT-OP-T Assessment and Plan Start: 01/15/19 11:28 Freq: Status: Active Protocol: Document 02/02/19 14:00 BS (Rec: 02/02/19 14:56 BS [email or web address]) Physical Therapy Assessment Assessment Summary Assessment Pt is making slight improvements with LUE ROM and is able to complete isometrics with less pain. She reports improved functional mobility with dressing. Physical Therapy Plan Next Visit Focus/Plan Next Note Type Treatment Note Next Visit Plan Continue AAROM/AROM and PROM for L shoulder mobility.
--- NOTE | 2019-02-04 15:00 | PT.OTN ---
Current Diagnoses Pain in left shoulder (02/04/19) Physical Therapy Treatment Note PT-OP-A Visit Information Start: 01/15/19 11:28 Freq: Status: Active Protocol: Document 02/04/19 14:38 BS (Rec: 02/04/19 14:51 BS [id number]) Out-Patient Physical Therapy Visit Information Visit Information Visit Type Treatment Note Visit Start Time 13:45 Visit Stop Time 14:30 Total Visit Minutes 45 Visit Number 7 PT-OP-B Current Condition Start: 01/15/19 11:28 Freq: Status: Active Protocol: Document 01/15/19 10:30 AMB (Rec: 01/15/19 15:48 AMB [email or web address]) Current Condition History of Current Condition Onset Date Oct 21 or Nov 22 Current Complaints Left shoulder pain History of Current Condition Shamika noted increased shoulder pain after lifting her mother up from the floor multiple times. She has been noticing increased pain since. 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 She has not been using a sling , but sometimes hooks her arm in her shirt becaue it feels better. Prior Treatments and Tests MRI on 12/08/18 showed mild supraspinatus tear, minimal partial tearing at mytendinous junction of infraspinatus, mild-moderate partial tear at inferiro glenohumeral ligament , and partial tearing at anteroinferior labrum. Prior Functional Status Baseline Function- ADL's Independent Baseline Function- Mobility Independent Current Functional Impairments (Reported) Functional Limitations- ADL's She finds upper body dressing and washing her hair painful. 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 Personal Factors Other Personal Factors That May Effect DMII Therapy/Recovery PT-OP-C Subjective Start: 01/15/19 11:28 Freq: Status: Active Protocol: Document 02/04/19 14:38 BS (Rec: 02/04/19 14:51 BS [id number]) OP-PT Subjective Patient Comments Patient Comments Pt states her shoulder has been sore this morning after mammogram this am. She took some Aleve and it has provided pain relief. PT-OP-K Range of Motion Start: 01/15/19 11:28 Freq: Status: Active Protocol: Document 01/15/19 10:30 AMB (Rec: 01/15/19 16:00 AMB [email or web address]) Shoulder Goniometric Range of Motion Shoulder Measured in Degrees Right Active Shoulder ROM WFL Yes Left Passive Testing Position Supine Flexion 90 Abduction 65 External Rotation at 0 degrees Abduction 24 Left Active Testing Position Standing Flexion 80 Abduction 45 Internal Rotation Behind Back (text) gluteals PT-OP-M Strength Start: 01/15/19 11:28 Freq: Status: Active Protocol: Document 01/15/19 10:30 AMB (Rec: 01/15/19 16:00 AMB [email or web address]) Shoulder Strength Shoulder Manual Muscle Testing Right Flexion 3- Fair- Extension 3+ Fair+ Abduction (C5) 2+ Poor+ External Rotation 3 Fair Internal Rotation 3 Fair PT-OP-Q Treatments Start: 01/15/19 11:28 Freq: Status: Active Protocol: Document 02/04/19 14:38 BS (Rec: 02/04/19 14:51 BS [id number]) Therapeutic Exercises Supine Exercises 2 Supine Exercise Name Serratus Punch Side left Reps/Minutes x15 Sidelying Exercises 1 Sidelying Exercise Name Sidelying Abduction Side left Resistance no weight Reps/Minutes x15 Comments Assist scapular upward rot. Sitting Exercises 2 Sitting Exercise Name Shoulder rolls, posterior Reps/Minutes x20 1 Sitting Exercise Name AAROM Pulleys (flexion, 45 deg scaption, abduction) Side left Equipment Used Pulleys Standing Exercises 8 Standing Exercise Name Bicep Curls Side left Resistance 7# Equipment Used DB Reps/Minutes x15 7 Standing Exercise Name Tband chaudhry Resistance #1 band Reps/Minutes x12 Comments LUE extended, R into ext/abd/ ER 5 Standing Exercise Name Tricep extension Side bilateral Resistance #1 Equipment Used Tband Reps/Minutes 2x10 Comments VCs for form 2 Standing Exercise Name Scapular retraction Side bilateral Resistance #3 band Reps/Minutes x20 1 Standing Exercise Name Tband isos: ext, add, IR/ER Side left Equipment Used #1 band Reps/Minutes x15-20 hold each Manual Therapy Treatment Joint Mobilizations 2 Joint Scapulothoracic Direction upward rotation Body Position Sidelying Reps/Duration x15 Comments upward rotation with SL AROM shoulder abduction 1 Joint L GH: ant, post, inf Grade III Body Position Hooklying Comments Joint mobilizations with PROM flex, abd, ER. Manual Techniques 1 Type PROM L shoulder flexion, abduction, ER Body Position Hooklying Comments intermittent with joint mobs PT-OP-R Modalities Start: 01/15/19 11:28 Freq: Status: Active Protocol: Document 01/26/19 11:58 BS (Rec: 01/26/19 12:08 BS [email or web address]) Hot Pack/Cold Pack Treatment Cold Pack Location L shoulder Patient Position Hooklying Patient Tolerance Good Comments Pt requested CP at end of session folowing additional strengthening exercises. PT-OP-T Assessment and Plan Start: 01/15/19 11:28 Freq: Status: Active Protocol: Document 02/04/19 14:38 BS (Rec: 02/04/19 14:51 BS [id number]) Physical Therapy Assessment Assessment Summary Assessment Pt making gains with L shoulder ROM, addressed scapular mobility today with mobilizations for upward rotation. Progression of tband isometrics and HEP. Physical Therapy Plan Next Visit Focus/Plan Next Note Type Treatment Note Next Visit Plan Continue L shoulder AAROM/PROM as tolerated, scapulothoracic mobility and serratus strengthening.
--- NOTE | 2019-02-09 15:45 | PT.OTN ---
Current Diagnoses Pain in left shoulder (02/09/19) Physical Therapy Treatment Note PT-OP-A Visit Information Start: 01/15/19 11:28 Freq: Status: Active Protocol: Document 02/09/19 15:17 BS (Rec: 02/09/19 15:26 BS [email or web address]) Out-Patient Physical Therapy Visit Information Visit Information Visit Type Treatment Note Visit Start Time 13:45 Visit Stop Time 14:30 Total Visit Minutes 45 Visit Number 8 PT-OP-B Current Condition Start: 01/15/19 11:28 Freq: Status: Active Protocol: Document 01/15/19 10:30 AMB (Rec: 01/15/19 15:48 AMB [email or web address]) Current Condition History of Current Condition Onset Date Oct 21 or Nov 22 Current Complaints Left shoulder pain History of Current Condition Shamika noted increased shoulder pain after lifting her mother up from the floor multiple times. She has been noticing increased pain since. 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 She has not been using a sling , but sometimes hooks her arm in her shirt becaue it feels better. Prior Treatments and Tests MRI on 12/08/18 showed mild supraspinatus tear, minimal partial tearing at mytendinous junction of infraspinatus, mild-moderate partial tear at inferiro glenohumeral ligament , and partial tearing at anteroinferior labrum. Prior Functional Status Baseline Function- ADL's Independent Baseline Function- Mobility Independent Current Functional Impairments (Reported) Functional Limitations- ADL's She finds upper body dressing and washing her hair painful. 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 Personal Factors Other Personal Factors That May Effect DMII Therapy/Recovery PT-OP-C Subjective Start: 01/15/19 11:28 Freq: Status: Active Protocol: Document 02/09/19 15:17 BS (Rec: 02/09/19 15:26 BS [email or web address]) OP-PT Subjective Patient Comments Patient Comments Pt states that addition of L shoulder abduction at home has made her muscles sore, but not necessarily painful. She has been sleeping better at night without shoulder pain. PT-OP-K Range of Motion Start: 03/14/19 11:28 Freq: Status: Active Protocol: Document 01/15/19 10:30 AMB (Rec: 01/15/19 16:00 AMB [email or web address]) Shoulder Goniometric Range of Motion Shoulder Measured in Degrees Right Active Shoulder ROM WFL Yes Left Passive Testing Position Supine Flexion 90 Abduction 65 External Rotation at 0 degrees Abduction 24 Left Active Testing Position Standing Flexion 80 Abduction 45 Internal Rotation Behind Back (text) gluteals PT-OP-M Strength Start: 01/15/19 11:28 Freq: Status: Active Protocol: Document 01/15/19 10:30 AMB (Rec: 01/15/19 16:00 AMB [email or web address]) Shoulder Strength Shoulder Manual Muscle Testing Right Flexion 3- Fair- Extension 3+ Fair+ Abduction (C5) 2+ Poor+ External Rotation 3 Fair Internal Rotation 3 Fair PT-OP-Q Treatments Start: 01/15/19 11:28 Freq: Status: Active Protocol: Document 02/09/19 15:17 BS (Rec: 02/09/19 15:26 BS [email or web address]) Therapeutic Exercises Supine Exercises 2 Supine Exercise Name Serratus Punch Side left Resistance 3#, 4# Reps/Minutes x15 Comments x12, x12 Sidelying Exercises 2 Sidelying Exercise Name Sidelying ER Side left Resistance no resistance Reps/Minutes x15 Comments towel roll under arm 1 Sidelying Exercise Name Sidelying Abduction Side left Resistance no weight Reps/Minutes x15 Comments Assist scapular upward rot. Sitting Exercises 1 Sitting Exercise Name AAROM Pulleys (flexion, 45 deg scaption, abduction) Side left Equipment Used Pulleys Standing Exercises 7 Standing Exercise Name Tband chaudhry Resistance #1 band Reps/Minutes 2x10 Comments LUE extended, R into ext/abd/ ER 6 Standing Exercise Name Cane AAROM abd, ext, flex Side left Reps/Minutes x20 each 5 Standing Exercise Name Tricep extension Side bilateral Resistance #1 Equipment Used Tband Reps/Minutes 2x10 Comments VCs for form 2 Standing Exercise Name Scapular retraction Side bilateral Resistance #3 band Reps/Minutes x20 1 Standing Exercise Name Tband isos 6 way Side left Equipment Used #1 band Reps/Minutes x15-20 hold each Manual Therapy Treatment Joint Mobilizations 2 Joint Scapulothoracic Direction upward rotation Body Position Sidelying Reps/Duration x20 Comments upward rotation with SL AROM shoulder abduction 1 Joint L GH: ant, post, inf Grade III Body Position Hooklying Comments Joint mobilizations with PROM flex, abd, ER. Manual Techniques 1 Type PROM L shoulder flexion, abduction, ER Body Position Hooklying Comments intermittent with joint mobs PT-OP-R Modalities Start: 01/15/19 11:28 Freq: Status: Active Protocol: Document 01/26/19 11:58 BS (Rec: 01/26/19 12:08 BS [email or web address]) Hot Pack/Cold Pack Treatment Cold Pack Location L shoulder Patient Position Hooklying Patient Tolerance Good Comments Pt requested CP at end of session folowing additional strengthening exercises. PT-OP-T Assessment and Plan Start: 01/15/19 11:28 Freq: Status: Active Protocol: Document 02/09/19 15:17 BS (Rec: 02/09/19 15:26 BS [email or web address]) Physical Therapy Assessment Assessment Summary Assessment Pt tolerated strengthening within available ROM today, occasionally compensates with R shoulder elevation but is aware and able to self-correct 90% of the time without VCs. Physical Therapy Plan Next Visit Focus/Plan Next Note Type Treatment Note Next Visit Plan Progression of shoulder and scapular strengthening with AROM/PROM, GH and scapulothoracic mobilizations.
--- NOTE | 2019-02-11 16:08 | PT.OTN ---
Current Diagnoses Pain in left shoulder (02/11/19) Physical Therapy Treatment Note PT-OP-A Visit Information Start: 01/15/19 11:28 Freq: Status: Active Protocol: Document 02/11/19 14:36 BS (Rec: 02/11/19 14:42 BS [id number]) Out-Patient Physical Therapy Visit Information Visit Information Visit Type Treatment Note Visit Start Time 14:30 Visit Stop Time 15:35 Total Visit Minutes 65 Visit Number 9 PT-OP-B Current Condition Start: 01/15/19 11:28 Freq: Status: Active Protocol: Document 01/15/19 10:30 AMB (Rec: 01/15/19 15:48 AMB [email or web address]) Current Condition History of Current Condition Onset Date Oct 21 or Nov 22 Current Complaints Left shoulder pain History of Current Condition Shamika noted increased shoulder pain after lifting her mother up from the floor multiple times. She has been noticing increased pain since. 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 She has not been using a sling , but sometimes hooks her arm in her shirt becaue it feels better. Prior Treatments and Tests MRI on 12/08/18 showed mild supraspinatus tear, minimal partial tearing at mytendinous junction of infraspinatus, mild-moderate partial tear at inferiro glenohumeral ligament , and partial tearing at anteroinferior labrum. Prior Functional Status Baseline Function- ADL's Independent Baseline Function- Mobility Independent Current Functional Impairments (Reported) Functional Limitations- ADL's She finds upper body dressing and washing her hair painful. 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 Personal Factors Other Personal Factors That May Effect DMII Therapy/Recovery PT-OP-C Subjective Start: 01/15/19 11:28 Freq: Status: Active Protocol: Document 02/11/19 14:36 BS (Rec: 02/11/19 14:42 BS [id number]) OP-PT Subjective Patient Comments Patient Comments L shoulder abduction continues to be difficult with HEP. Better able to wash hair, open car door, and get dressed. PT-OP-K Range of Motion Start: 01/15/19 11:28 Freq: Status: Active Protocol: Document 01/15/19 10:30 AMB (Rec: 01/15/19 16:00 AMB [email or web address]) Shoulder Goniometric Range of Motion Shoulder Measured in Degrees Right Active Shoulder ROM WFL Yes Left Passive Testing Position Supine Flexion 90 Abduction 65 External Rotation at 0 degrees Abduction 24 Left Active Testing Position Standing Flexion 80 Abduction 45 Internal Rotation Behind Back (text) gluteals PT-OP-M Strength Start: 01/15/19 11:28 Freq: Status: Active Protocol: Document 01/15/19 10:30 AMB (Rec: 01/15/19 16:00 AMB [email or web address]) Shoulder Strength Shoulder Manual Muscle Testing Right Flexion 3- Fair- Extension 3+ Fair+ Abduction (C5) 2+ Poor+ External Rotation 3 Fair Internal Rotation 3 Fair PT-OP-Q Treatments Start: 01/15/19 11:28 Freq: Status: Active Protocol: Document 02/11/19 14:36 BS (Rec: 02/11/19 14:42 BS [id number]) Cardio Equipment Upper Body Ergometer (UBE) Duration (Minutes) 4 Seat Position 12 Other 2' forward, 2' backward Therapeutic Exercises Sitting Exercises 1 Sitting Exercise Name AAROM Pulleys (flexion, 45 deg scaption, abduction) Side left Equipment Used Pulleys Standing Exercises 11 Standing Exercise Name B UE ER Side bilateral Equipment Used yellow tband loop Reps/Minutes x10 Comments VCs elbows at sides 10 Standing Exercise Name Scapular Clocks Equipment Used yellow tband loop Reps/Minutes x5 cycles 1,3,5 o'clock Comments stabilize with LUE 9 Standing Exercise Name AROM flex, abd, scaption Resistance no weight Reps/Minutes x10 each Comments scapular assistance with abd. 6 Standing Exercise Name Cane AAROM flex, abd, scaption Side left Reps/Minutes x 10 each 4 Standing Exercise Name Lat Stretch with cane Side left Reps/Minutes 2x30 Comments cane in front with horiz. add and R trunk SB 2 Standing Exercise Name Scapular retraction Side bilateral Resistance #4 band Reps/Minutes x20 Comments VCs for cervical retraction Manual Therapy Treatment Joint Mobilizations 2 Joint Scapulothoracic Direction upward rotation Body Position Sidelying Reps/Duration x10 Comments upward rotation with standing flex, abd today. 1 Joint L GH: ant, post Grade III Body Position Hooklying Comments Joint mobilizations with PROM flex. Manual Techniques 1 Type PROM L shoulder flexion, abduction, ER Body Position Hooklying Comments intermittent with joint mobs PT-OP-R Modalities Start: 01/15/19 11:28 Freq: Status: Active Protocol: Document 02/11/19 14:36 BS (Rec: 02/11/19 15:44 BS [id number]) Electric Stimulation Electric Stimulation Interferential Current (IFC) Body Location L shoulder Duration (Minutes) 15 Comments Trial today to reduce pain and muscle guarding, monitor response next session. PT-OP-T Assessment and Plan Start: 01/15/19 11:28 Freq: Status: Active Protocol: Document 02/11/19 14:36 BS (Rec: 02/11/19 15:44 BS [id number]) Physical Therapy Assessment Assessment Summary Assessment Pt continues to tolerate sessions and notes improvements with daily activities. She still has some muscle guarding limiting PROM and demo's poor scapulothoracic mechanics. Trial of IFC to L shoulder at end of session. Physical Therapy Plan Next Visit Focus/Plan Next Note Type Treatment Note Next Visit Plan Progress scapular strengthening and AROM as able . Assess response to trial of IFC.
--- NOTE | 2019-02-16 15:35 | PT.OTN ---
Current Diagnoses Pain in left shoulder (02/16/19) Physical Therapy Treatment Note PT-OP-A Visit Information Start: 01/15/19 11:28 Freq: Status: Active Protocol: Document 02/16/19 14:30 AMB (Rec: 02/16/19 14:40 AMB [id number]) Out-Patient Physical Therapy Visit Information Visit Information Visit Type Treatment Note Visit Start Time 14:30 Visit Stop Time 15:15 Total Visit Minutes 45 Visit Number 10 PT-OP-B Current Condition Start: 01/15/19 11:28 Freq: Status: Active Protocol: Document 01/15/19 10:30 AMB (Rec: 01/15/19 15:48 AMB [email or web address]) Current Condition History of Current Condition Onset Date Oct 21 or Nov 22 Current Complaints Left shoulder pain History of Current Condition Shamika noted increased shoulder pain after lifting her mother up from the floor multiple times. She has been noticing increased pain since. 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 She has not been using a sling , but sometimes hooks her arm in her shirt becaue it feels better. Prior Treatments and Tests MRI on 12/08/18 showed mild supraspinatus tear, minimal partial tearing at mytendinous junction of infraspinatus, mild-moderate partial tear at inferiro glenohumeral ligament , and partial tearing at anteroinferior labrum. Prior Functional Status Baseline Function- ADL's Independent Baseline Function- Mobility Independent Current Functional Impairments (Reported) Functional Limitations- ADL's She finds upper body dressing and washing her hair painful. 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 Personal Factors Other Personal Factors That May Effect DMII Therapy/Recovery PT-OP-C Subjective Start: 01/15/19 11:28 Freq: Status: Active Protocol: Document 02/16/19 14:30 AMB (Rec: 02/16/19 14:40 AMB [id number]) OP-PT Subjective Patient Comments Patient Comments Pt noticing rolling down the window in the car is getting easier, but still wakes up to shoulder soreness. PT-OP-K Range of Motion Start: 01/15/19 11:28 Freq: Status: Active Protocol: Document 02/16/19 14:30 AMB (Rec: 02/16/19 15:33 AMB [email or web address]) Shoulder Goniometric Range of Motion Shoulder Measured in Degrees Right Active Flexion 112 Extension 50 Abduction 80 Left Passive Testing Position Supine Flexion 130 Abduction 122 External Rotation at 0 degrees Abduction 20 PT-OP-M Strength Start: 01/15/19 11:28 Freq: Status: Active Protocol: Document 01/15/19 10:30 AMB (Rec: 01/15/19 16:00 AMB [email or web address]) Shoulder Strength Shoulder Manual Muscle Testing Right Flexion 3- Fair- Extension 3+ Fair+ Abduction (C5) 2+ Poor+ External Rotation 3 Fair Internal Rotation 3 Fair PT-OP-Q Treatments Start: 01/15/19 11:28 Freq: Status: Active Protocol: Document 02/16/19 14:30 AMB (Rec: 02/16/19 14:40 AMB [id number]) Cardio Equipment Upper Body Ergometer (UBE) Duration (Minutes) 4 Seat Position 12 Other 3' forward, 3' backward Therapeutic Exercises Supine Exercises 2 Supine Exercise Name Serratus Punch Side left Resistance , 4# Reps/Minutes x15 Sidelying Exercises 2 Sidelying Exercise Name Sidelying ER Side left Resistance no resistance Reps/Minutes x15 Comments towel roll under arm 1 Sidelying Exercise Name Sidelying Abduction Side left Resistance no weight Reps/Minutes x15 Comments Assist scapular upward rot. Standing Exercises 3 Standing Exercise Name shoulder flexion at counter Reps/Minutes 30x2 Comments stretch Manual Therapy Treatment Joint Mobilizations 2 Joint Scapulothoracic Direction upward rotation Body Position Sidelying Reps/Duration x10 Comments upward rotation with standing flex, abd today. 1 Joint L GH: ant, pos, inf Grade IV Body Position Hooklying Comments Joint mobilizations with PROM flex, abduct Manual Techniques 1 Type PROM L shoulder flexion, abduction, ER Body Position Hooklying Comments intermittent with sustained pressure at subscap PT-OP-R Modalities Start: 01/15/19 11:28 Freq: Status: Active Protocol: Document 02/11/19 14:36 BS (Rec: 02/11/19 15:44 BS [id number]) Electric Stimulation Electric Stimulation Interferential Current (IFC) Body Location L shoulder Duration (Minutes) 15 Comments Trial today to reduce pain and muscle guarding, monitor response next session. PT-OP-T Assessment and Plan Start: 01/15/19 11:28 Freq: Status: Active Protocol: Document 02/16/19 14:30 AMB (Rec: 02/16/19 15:33 AMB [email or web address]) Physical Therapy Assessment Assessment Summary Assessment Shamika has improved her flexion and abduction AROM and PROM significantly since eval , however it continues to be limited. Less guarding today, but more of a hard end feel with end range external rotation, and ER ROM has not markedly improved. Will need to continue to focus on scapulothoracic movement and rotation PROM. Physical Therapy Plan Next Visit Focus/Plan Next Note Type Treatment Note Next Visit Plan Continue to progress PROM and scapulothoracic rhythm.
--- NOTE | 2019-02-18 16:02 | PT.OTN ---
Current Diagnoses Pain in left shoulder (02/18/19) Physical Therapy Treatment Note PT-OP-A Visit Information Start: 01/15/19 11:28 Freq: Status: Active Protocol: Document 02/18/19 15:43 BS (Rec: 02/18/19 15:56 BS [id number]) Out-Patient Physical Therapy Visit Information Visit Information Visit Type Treatment Note Visit Start Time 14:30 Visit Stop Time 15:20 Total Visit Minutes 50 Visit Number 11 PT-OP-B Current Condition Start: 01/15/19 11:28 Freq: Status: Active Protocol: Document 01/15/19 10:30 AMB (Rec: 01/15/19 15:48 AMB [email or web address]) Current Condition History of Current Condition Onset Date Oct 21 or Nov 22 Current Complaints Left shoulder pain History of Current Condition Shamika noted increased shoulder pain after lifting her mother up from the floor multiple times. She has been noticing increased pain since. 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 She has not been using a sling , but sometimes hooks her arm in her shirt becaue it feels better. Prior Treatments and Tests MRI on 12/08/18 showed mild supraspinatus tear, minimal partial tearing at mytendinous junction of infraspinatus, mild-moderate partial tear at inferiro glenohumeral ligament , and partial tearing at anteroinferior labrum. Prior Functional Status Baseline Function- ADL's Independent Baseline Function- Mobility Independent Current Functional Impairments (Reported) Functional Limitations- ADL's She finds upper body dressing and washing her hair painful. 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 Personal Factors Other Personal Factors That May Effect DMII Therapy/Recovery PT-OP-C Subjective Start: 01/15/19 11:28 Freq: Status: Active Protocol: Document 02/18/19 15:43 BS (Rec: 02/18/19 15:56 BS [id number]) OP-PT Subjective Patient Comments Patient Comments Pt states she is having less shoulder pain, mainly when she moves it too quickly to reach for or to lift an object. PT-OP-K Range of Motion Start: 01/15/19 11:28 Freq: Status: Active Protocol: Document 02/16/19 14:30 AMB (Rec: 02/16/19 15:33 AMB [email or web address]) Shoulder Goniometric Range of Motion Shoulder Measured in Degrees Right Active Flexion 112 Extension 50 Abduction 80 Left Passive Testing Position Supine Flexion 130 Abduction 122 External Rotation at 0 degrees Abduction 20 PT-OP-M Strength Start: 01/15/19 11:28 Freq: Status: Active Protocol: Document 01/15/19 10:30 AMB (Rec: 01/15/19 16:00 AMB [email or web address]) Shoulder Strength Shoulder Manual Muscle Testing Right Flexion 3- Fair- Extension 3+ Fair+ Abduction (C5) 2+ Poor+ External Rotation 3 Fair Internal Rotation 3 Fair PT-OP-Q Treatments Start: 01/15/19 11:28 Freq: Status: Active Protocol: Document 02/18/19 15:43 BS (Rec: 02/18/19 15:56 BS [id number]) Therapeutic Exercises Sidelying Exercises 2 Sidelying Exercise Name Sidelying ER Side left Resistance no resistance Reps/Minutes x15 Comments towel roll under arm 1 Sidelying Exercise Name Sidelying Abduction Side left Resistance no weight Reps/Minutes x15 Comments Assist scapular upward rot. Sitting Exercises 3 Sitting Exercise Name ER stretch Equipment Used table top Comments 2x30 1 Sitting Exercise Name AAROM Pulleys (flexion, 45 deg scaption, abduction) Side left Equipment Used Pulleys Standing Exercises 9 Standing Exercise Name AROM flex, abd, scaption Resistance no weight Reps/Minutes x5 each 7 Standing Exercise Name Tband chaudhry Resistance #2 band Reps/Minutes x12 Comments LUE extended, R into ext/abd/ ER 6 Standing Exercise Name Cane AAROM flex, abd, scaption , ER Side left Reps/Minutes x 10 each Comments focused on ER, VCs to keep elbow at side 2 Standing Exercise Name Scapular retraction Side bilateral Resistance #4 band Reps/Minutes x20 Comments VCs for cervical retraction 1 Standing Exercise Name Tband isos 6 way Side left Equipment Used #1 band Reps/Minutes x15-20 hold each to fatigue Comments ER/IR iso added to HEP today. Manual Therapy Treatment Joint Mobilizations 2 Joint Scapulothoracic Direction upward rotation Body Position Sidelying Reps/Duration x8 Comments upward rotation with sidelying abduction AROM. 1 Joint L GH: ant/post Grade IV Body Position Hooklying Comments Joint mobilizations with passive ER. Manual Techniques 2 Type Ice Cup Massage Body Location L post elbow Body Position Sitting Reps/Duration 3 min 1 Type PROM L shoulder ER Comments intermittent with joint mobs PT-OP-R Modalities Start: 01/15/19 11:28 Freq: Status: Active Protocol: Document 02/11/19 14:36 BS (Rec: 02/11/19 15:44 BS [id number]) Electric Stimulation Electric Stimulation Interferential Current (IFC) Body Location L shoulder Duration (Minutes) 15 Comments Trial today to reduce pain and muscle guarding, monitor response next session. PT-OP-T Assessment and Plan Start: 01/15/19 11:28 Freq: Status: Active Protocol: Document 02/18/19 15:43 BS (Rec: 02/18/19 15:56 BS [id number]) Physical Therapy Assessment Assessment Summary Assessment Continued with AAROM, PROM with joint mobilizations and GH/scapular strengthening. Addition of ER table top stretch and ER/IR isos added to pt's HEP. Pt complained of L elbow pain with PROM L shoulder ER. Trial of ice cup massage for pain relief at end of session. Physical Therapy Plan Next Visit Focus/Plan Next Note Type Treatment Note Next Visit Plan Progression of scapular/GH strengthening within available ROM. Monitor L elbow pain with exercises and push L shoulder ER ROM as tolerated by pt.
--- NOTE | 2019-02-23 16:19 | PT.OTN ---
Current Diagnoses Pain in left shoulder (02/23/19) Physical Therapy Treatment Note PT-OP-A Visit Information Start: 01/15/19 11:28 Freq: Status: Active Protocol: Document 02/23/19 16:00 BS (Rec: 02/23/19 16:08 BS [email or web address]) Out-Patient Physical Therapy Visit Information Visit Information Visit Type Treatment Note Visit Start Time 14:30 Visit Stop Time 15:15 Total Visit Minutes 45 Visit Number 12 PT-OP-B Current Condition Start: 01/15/19 11:28 Freq: Status: Active Protocol: Document 01/15/19 10:30 AMB (Rec: 01/15/19 15:48 AMB [email or web address]) Current Condition History of Current Condition Onset Date Oct 21 or Nov 22 Current Complaints Left shoulder pain History of Current Condition Shamika noted increased shoulder pain after lifting her mother up from the floor multiple times. She has been noticing increased pain since. 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 She has not been using a sling , but sometimes hooks her arm in her shirt becaue it feels better. Prior Treatments and Tests MRI on 12/08/18 showed mild supraspinatus tear, minimal partial tearing at mytendinous junction of infraspinatus, mild-moderate partial tear at inferiro glenohumeral ligament , and partial tearing at anteroinferior labrum. Prior Functional Status Baseline Function- ADL's Independent Baseline Function- Mobility Independent Current Functional Impairments (Reported) Functional Limitations- ADL's She finds upper body dressing and washing her hair painful. 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 Personal Factors Other Personal Factors That May Effect DMII Therapy/Recovery PT-OP-C Subjective Start: 01/15/19 11:28 Freq: Status: Active Protocol: Document 02/23/19 16:00 BS (Rec: 02/23/19 16:08 BS [email or web address]) OP-PT Subjective Patient Comments Patient Comments Pt has question regarding standing flex/abd AROM. Notices that she compensates less with trunk rot. when sitting in chair. Shoulder is feeling as usual, no abnormal pain complaints. PT-OP-K Range of Motion Start: 01/15/19 11:28 Freq: Status: Active Protocol: Document 02/16/19 14:30 AMB (Rec: 02/16/19 15:33 AMB [email or web address]) Shoulder Goniometric Range of Motion Shoulder Measured in Degrees Right Active Flexion 112 Extension 50 Abduction 80 Left Passive Testing Position Supine Flexion 130 Abduction 122 External Rotation at 0 degrees Abduction 20 PT-OP-M Strength Start: 01/15/19 11:28 Freq: Status: Active Protocol: Document 01/15/19 10:30 AMB (Rec: 01/15/19 16:00 AMB [email or web address]) Shoulder Strength Shoulder Manual Muscle Testing Right Flexion 3- Fair- Extension 3+ Fair+ Abduction (C5) 2+ Poor+ External Rotation 3 Fair Internal Rotation 3 Fair PT-OP-Q Treatments Start: 01/15/19 11:28 Freq: Status: Active Protocol: Document 02/23/19 16:00 BS (Rec: 02/23/19 16:08 BS [email or web address]) Cardio Equipment Upper Body Ergometer (UBE) Duration (Minutes) 4 Seat Position 12 Other 2' forward, 2' backward Therapeutic Exercises Supine Exercises 2 Supine Exercise Name Serratus Punch Side left Resistance 3# Reps/Minutes 2x15 Sidelying Exercises 3 Sidelying Exercise Name Abduction Rhythmic Stab. Side left Reps/Minutes x10 Comments rhythmic stab. at 70 deg abd 2 Sidelying Exercise Name Sidelying ER Side left Resistance no resistance Reps/Minutes x15 Comments towel roll under arm 1 Sidelying Exercise Name Sidelying Abduction Side left Resistance no weight Reps/Minutes x15 Comments Assist scapular upward rot. Standing Exercises 12 Standing Exercise Name Body Blade: flex, abd, IR/ER Side left Reps/Minutes x10 each Comments trial today. Poor technique. 9 Standing Exercise Name AROM flex, abd, scaption Resistance no weight Reps/Minutes x10 each Comments scapular assistance upward rot . 7 Standing Exercise Name Tband chaudhry Resistance #2 band Reps/Minutes x12 Comments LUE extended, R into ext/abd/ ER 6 Standing Exercise Name Cane AAROM flex, abd, scaption , ER Side left Reps/Minutes x 15 each Comments focused on ER, VCs to keep elbow at side 2 Standing Exercise Name Scapular retraction Side bilateral Resistance #4 band Reps/Minutes x20 Comments VCs for cervical retraction 1 Standing Exercise Name Tband isos ER/IR Side left Equipment Used #1 band Reps/Minutes x2 to fatigue Comments ER/IR iso added to HEP today. Manual Therapy Treatment Joint Mobilizations 2 Joint Scapulothoracic Direction upward rotation Comments with standing flex and abd AROM and sidelying abd today. PT-OP-R Modalities Start: 01/15/19 11:28 Freq: Status: Active Protocol: Document 02/11/19 14:36 BS (Rec: 02/11/19 15:44 BS [id number]) Electric Stimulation Electric Stimulation Interferential Current (IFC) Body Location L shoulder Duration (Minutes) 15 Comments Trial today to reduce pain and muscle guarding, monitor response next session. PT-OP-T Assessment and Plan Start: 01/15/19 11:28 Freq: Status: Active Protocol: Document 02/23/19 16:00 BS (Rec: 02/23/19 16:08 BS [email or web address]) Physical Therapy Assessment Assessment Summary Assessment Pt is making improvements with better scapulothoracic mechanics, continues to need strengthening of serratus and scapular stabilizers. Physical Therapy Plan Next Visit Focus/Plan Next Note Type Treatment Note Next Visit Plan Continue with scapular/GH strengthening. Rhythmic stabilization in abd/ER.
--- NOTE | 2019-02-25 15:44 | PT.OTN ---
Current Diagnoses Pain in left shoulder (02/25/19) Physical Therapy Treatment Note PT-OP-A Visit Information Start: 01/15/19 11:28 Freq: Status: Active Protocol: Document 02/25/19 15:32 BS (Rec: 02/25/19 15:39 BS [id number]) Out-Patient Physical Therapy Visit Information Visit Information Visit Type Treatment Note Visit Start Time 14:35 Visit Stop Time 15:20 Total Visit Minutes 45 Visit Number 13 PT-OP-B Current Condition Start: 01/15/19 11:28 Freq: Status: Active Protocol: Document 01/15/19 10:30 AMB (Rec: 01/15/19 15:48 AMB [email or web address]) Current Condition History of Current Condition Onset Date Oct 21 or Nov 22 Current Complaints Left shoulder pain History of Current Condition Shamika noted increased shoulder pain after lifting her mother up from the floor multiple times. She has been noticing increased pain since. 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 She has not been using a sling , but sometimes hooks her arm in her shirt becaue it feels better. Prior Treatments and Tests MRI on 12/08/18 showed mild supraspinatus tear, minimal partial tearing at mytendinous junction of infraspinatus, mild-moderate partial tear at inferiro glenohumeral ligament , and partial tearing at anteroinferior labrum. Prior Functional Status Baseline Function- ADL's Independent Baseline Function- Mobility Independent Current Functional Impairments (Reported) Functional Limitations- ADL's She finds upper body dressing and washing her hair painful. 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 Personal Factors Other Personal Factors That May Effect DMII Therapy/Recovery PT-OP-C Subjective Start: 01/15/19 11:28 Freq: Status: Active Protocol: Document 02/25/19 15:32 BS (Rec: 02/25/19 15:39 BS [id number]) OP-PT Subjective Patient Comments Patient Comments Pt reports noticing some L shoulder fatigue at work today . She has had less L elbow pain with attention to mechanics during supine cane ER. PT-OP-K Range of Motion Start: 01/15/19 11:28 Freq: Status: Active Protocol: Document 02/16/19 14:30 AMB (Rec: 02/16/19 15:33 AMB [email or web address]) Shoulder Goniometric Range of Motion Shoulder Measured in Degrees Right Active Flexion 112 Extension 50 Abduction 80 Left Passive Testing Position Supine Flexion 130 Abduction 122 External Rotation at 0 degrees Abduction 20 PT-OP-M Strength Start: 01/15/19 11:28 Freq: Status: Active Protocol: Document 01/15/19 10:30 AMB (Rec: 01/15/19 16:00 AMB [email or web address]) Shoulder Strength Shoulder Manual Muscle Testing Right Flexion 3- Fair- Extension 3+ Fair+ Abduction (C5) 2+ Poor+ External Rotation 3 Fair Internal Rotation 3 Fair PT-OP-Q Treatments Start: 01/15/19 11:28 Freq: Status: Active Protocol: Document 02/25/19 15:32 BS (Rec: 02/25/19 15:39 BS [id number]) Cardio Equipment Upper Body Ergometer (UBE) Duration (Minutes) 5 Seat Position 12 Other 2.5' forward, 2.5' backward Therapeutic Exercises Sidelying Exercises 2 Sidelying Exercise Name Sidelying ER Side left Resistance 1# Reps/Minutes 2x10 Comments towel roll under arm 1 Sidelying Exercise Name Sidelying Abduction Side left Resistance 1# Reps/Minutes 2x10 Comments Assist scapular upward rot. Sitting Exercises 1 Sitting Exercise Name AAROM Pulleys: scaption, abduction Side left Equipment Used Pulleys Standing Exercises 9 Standing Exercise Name AROM flex, abd, scaption Resistance no weight Reps/Minutes x12 each Comments scapular assistance upward rot . 6 Standing Exercise Name Cane AAROM flex, abd, scaption , ER Side left Reps/Minutes x 15 each Comments focused on ER, VCs to keep elbow at side 2 Standing Exercise Name Scapular retraction Side bilateral Resistance #4 band Reps/Minutes x20 Comments VCs for cervical retraction 1 Standing Exercise Name Tband isos ER/IR/Abd Side left Equipment Used #1 band Reps/Minutes x2 to fatigue Comments increased duration with less fatigue Manual Therapy Treatment Joint Mobilizations 2 Joint Scapulothoracic Direction upward rotation Comments with standing flex/abd and sidelying abd today. 1 Joint L GH: ant/post Grade IV Body Position Hooklying Comments Joint mobilizations with passive ER and flex. Manual Techniques 1 Type PROM L shoulder ER Comments intermittent with joint mobs PT-OP-R Modalities Start: 01/15/19 11:28 Freq: Status: Active Protocol: Document 02/11/19 14:36 BS (Rec: 02/11/19 15:44 BS [id number]) Electric Stimulation Electric Stimulation Interferential Current (IFC) Body Location L shoulder Duration (Minutes) 15 Comments Trial today to reduce pain and muscle guarding, monitor response next session. PT-OP-T Assessment and Plan Start: 01/15/19 11:28 Freq: Status: Active Protocol: Document 02/25/19 15:32 BS (Rec: 02/25/19 15:39 BS [id number]) Physical Therapy Assessment Assessment Summary Assessment Pt tolerated light resistance for sidelying ER and abduction today with good mechanics. She continues to demo compensation with standing abduction and flexion. Continuing to make small improvements in L shoulder ROM . Abdction and ER most limited . Physical Therapy Plan Next Visit Focus/Plan Next Note Type Treatment Note Next Visit Plan Continue to progress scapular and GH strengthening as able.
--- NOTE | 2019-03-03 15:44 | PT.OTN ---
Current Diagnoses Pain in left shoulder (03/03/19) Physical Therapy Treatment Note PT-OP-A Visit Information Start: 01/15/19 11:28 Freq: Status: Active Protocol: Document 03/03/19 09:00 BS (Rec: 03/03/19 13:27 BS [email or web address]) Out-Patient Physical Therapy Visit Information Visit Information Visit Type Treatment Note Visit Start Time 08:15 Visit Stop Time 09:00 Total Visit Minutes 45 Visit Number 14 PT-OP-B Current Condition Start: 01/15/19 11:28 Freq: Status: Active Protocol: Document 01/15/19 10:30 AMB (Rec: 01/15/19 15:48 AMB [email or web address]) Current Condition History of Current Condition Onset Date Oct 21 or Nov 22 Current Complaints Left shoulder pain History of Current Condition Shamika noted increased shoulder pain after lifting her mother up from the floor multiple times. She has been noticing increased pain since. 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 She has not been using a sling , but sometimes hooks her arm in her shirt becaue it feels better. Prior Treatments and Tests MRI on 12/08/18 showed mild supraspinatus tear, minimal partial tearing at mytendinous junction of infraspinatus, mild-moderate partial tear at inferiro glenohumeral ligament , and partial tearing at anteroinferior labrum. Prior Functional Status Baseline Function- ADL's Independent Baseline Function- Mobility Independent Current Functional Impairments (Reported) Functional Limitations- ADL's She finds upper body dressing and washing her hair painful. 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 Personal Factors Other Personal Factors That May Effect DMII Therapy/Recovery PT-OP-C Subjective Start: 01/15/19 11:28 Freq: Status: Active Protocol: Document 03/03/19 09:00 BS (Rec: 03/03/19 13:27 BS [email or web address]) OP-PT Subjective Patient Comments Patient Comments Pt states that her shoulder is most painful at night with aching that makes it hard to sleep. PT-OP-K Range of Motion Start: 01/15/19 11:28 Freq: Status: Active Protocol: Document 02/16/19 14:30 AMB (Rec: 02/16/19 15:33 AMB [email or web address]) Shoulder Goniometric Range of Motion Shoulder Measured in Degrees Right Active Flexion 112 Extension 50 Abduction 80 Left Passive Testing Position Supine Flexion 130 Abduction 122 External Rotation at 0 degrees Abduction 20 PT-OP-M Strength Start: 01/15/19 11:28 Freq: Status: Active Protocol: Document 01/15/19 10:30 AMB (Rec: 01/15/19 16:00 AMB [email or web address]) Shoulder Strength Shoulder Manual Muscle Testing Right Flexion 3- Fair- Extension 3+ Fair+ Abduction (C5) 2+ Poor+ External Rotation 3 Fair Internal Rotation 3 Fair PT-OP-Q Treatments Start: 01/15/19 11:28 Freq: Status: Active Protocol: Document 03/03/19 09:00 BS (Rec: 03/03/19 13:27 BS [email or web address]) Therapeutic Exercises Supine Exercises 2 Supine Exercise Name Serratus Punch Side left Resistance 3# Reps/Minutes 2x15 1 Supine Exercise Name Pec Stretch Equipment Used Foam roll Reps/Minutes x3' Comments palms up Sidelying Exercises 3 Sidelying Exercise Name Abduction Rhythmic Stab. Side left Reps/Minutes x12 Comments rhythmic stab. at 90 deg abd 2 Sidelying Exercise Name Sidelying ER Side left Resistance 1# Reps/Minutes 2x10 Comments towel roll under arm 1 Sidelying Exercise Name Sidelying Abduction Side left Resistance 1# Reps/Minutes 2x10 Comments Assist scapular upward rot. Sitting Exercises 1 Sitting Exercise Name AAROM Pulleys: scaption, abduction Side left Equipment Used Pulleys Standing Exercises 9 Standing Exercise Name flex, abd, scaption Resistance no weight Reps/Minutes x12 each Comments scapular assistance upward rot . 8 Standing Exercise Name Flex, abd to 90 deg Reps/Minutes 10 hold at 90 deg Comments x10 each 7 Standing Exercise Name Tband chaudhry Resistance #2 band Reps/Minutes x15 Comments LUE at 90 deg. 6 Standing Exercise Name Cane AAROM flex, abd, scaption , ER Side left Reps/Minutes x 15 each Comments focused on ER, VCs to keep elbow at side 2 Standing Exercise Name Scapular retraction Side bilateral Resistance #4 band Reps/Minutes x20 1 Standing Exercise Name Tband isos ER/IR/Abd Side left Equipment Used #1 band Reps/Minutes x2 to fatigue Comments increased duration with less fatigue Manual Therapy Treatment Joint Mobilizations 2 Joint Scapulothoracic Direction upward rotation Comments with standing flex/abd and sidelying abd today. 1 Joint L GH: ant/post Grade IV Body Position Hooklying Comments Joint mobilizations with passive ER. Manual Techniques 1 Type PROM L shoulder ER Comments intermittent with joint mobs. Focused on ER today. PT-OP-R Modalities Start: 01/15/19 11:28 Freq: Status: Active Protocol: Document 02/11/19 14:36 BS (Rec: 02/11/19 15:44 BS [id number]) Electric Stimulation Electric Stimulation Interferential Current (IFC) Body Location L shoulder Duration (Minutes) 15 Comments Trial today to reduce pain and muscle guarding, monitor response next session. PT-OP-T Assessment and Plan Start: 01/15/19 11:28 Freq: Status: Active Protocol: Document 03/03/19 09:00 BS (Rec: 03/03/19 13:27 BS [email or web address]) Physical Therapy Assessment Assessment Summary Assessment Pt continues to be limited with AROM, especially in ER and abduction. She demo's weakness in GH and periscapular muscles with poor scapulothoracic mechanics. Discussed scheduling apt with MD at end of this month. Physical Therapy Plan Next Visit Focus/Plan Next Note Type Treatment Note Next Visit Plan Continue to strengthen GH and scapular. Mobilizations for GH ER, Abduction, and scapular upward rot.
--- NOTE | 2019-03-05 15:37 | PT.OTN ---
Current Diagnoses Pain in left shoulder (03/05/19) Physical Therapy Treatment Note PT-OP-A Visit Information Start: 01/15/19 11:28 Freq: Status: Active Protocol: Document 03/05/19 15:25 BS (Rec: 03/05/19 15:34 BS [email or web address]) Out-Patient Physical Therapy Visit Information Visit Information Visit Type Treatment Note Visit Start Time 14:30 Visit Stop Time 15:15 Total Visit Minutes 45 Visit Number 15 PT-OP-B Current Condition Start: 01/15/19 11:28 Freq: Status: Active Protocol: Document 01/15/19 10:30 AMB (Rec: 01/15/19 15:48 AMB [email or web address]) Current Condition History of Current Condition Onset Date Oct 21 or Nov 22 Current Complaints Left shoulder pain History of Current Condition Shamika noted increased shoulder pain after lifting her mother up from the floor multiple times. She has been noticing increased pain since. 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 She has not been using a sling , but sometimes hooks her arm in her shirt becaue it feels better. Prior Treatments and Tests MRI on 12/08/18 showed mild supraspinatus tear, minimal partial tearing at mytendinous junction of infraspinatus, mild-moderate partial tear at inferiro glenohumeral ligament , and partial tearing at anteroinferior labrum. Prior Functional Status Baseline Function- ADL's Independent Baseline Function- Mobility Independent Current Functional Impairments (Reported) Functional Limitations- ADL's She finds upper body dressing and washing her hair painful. 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 Personal Factors Other Personal Factors That May Effect DMII Therapy/Recovery PT-OP-C Subjective Start: 01/15/19 11:28 Freq: Status: Active Protocol: Document 03/05/19 15:25 BS (Rec: 03/05/19 15:34 BS [email or web address]) OP-PT Subjective Patient Comments Patient Comments Pt continues to report difficulty sleeping, discussed various sleeping positions. Has noticed improvements in strength and ROM. PT-OP-K Range of Motion Start: 01/15/19 11:28 Freq: Status: Active Protocol: Document 02/16/19 14:30 AMB (Rec: 02/16/19 15:33 AMB [email or web address]) Shoulder Goniometric Range of Motion Shoulder Measured in Degrees Right Active Flexion 112 Extension 50 Abduction 80 Left Passive Testing Position Supine Flexion 130 Abduction 122 External Rotation at 0 degrees Abduction 20 PT-OP-M Strength Start: 01/15/19 11:28 Freq: Status: Active Protocol: Document 01/15/19 10:30 AMB (Rec: 01/15/19 16:00 AMB [email or web address]) Shoulder Strength Shoulder Manual Muscle Testing Right Flexion 3- Fair- Extension 3+ Fair+ Abduction (C5) 2+ Poor+ External Rotation 3 Fair Internal Rotation 3 Fair PT-OP-Q Treatments Start: 01/15/19 11:28 Freq: Status: Active Protocol: Document 03/05/19 15:25 BS (Rec: 03/05/19 15:34 BS [email or web address]) Cardio Equipment Upper Body Ergometer (UBE) Duration (Minutes) 5 Seat Position 12 Other 2.5' forward, 2.5' backward Therapeutic Exercises Supine Exercises 2 Supine Exercise Name Serratus Punch Side bilateral Resistance Cane OH, 4# Reps/Minutes x15 1 Supine Exercise Name Pec Stretch Equipment Used Foam roll Reps/Minutes x3' Comments palms up Sitting Exercises 1 Sitting Exercise Name AAROM Pulleys: scaption, abduction Side left Equipment Used Pulleys Standing Exercises 13 Standing Exercise Name Scapular Clocks Side bilateral Equipment Used #1 band Comments 1,3,5 o'clock 9 Standing Exercise Name flex, abd, scaption Resistance no weight Reps/Minutes x15 each Comments scapular assistance upward rot . 8 Standing Exercise Name Flex, abd to 90 deg Reps/Minutes 10 hold at 90 deg Comments x10 each 7 Standing Exercise Name Tband chaudhry Resistance #2 band Reps/Minutes x20 Comments LUE at 95 deg. 6 Standing Exercise Name Cane AAROM flex, abd, scaption , ER Side left Reps/Minutes x 15 each Comments focused on ER, VCs to keep elbow at side 3 Standing Exercise Name Lat pulldowns Equipment Used #4 band Reps/Minutes x20 Comments VCs for upright posture 2 Standing Exercise Name Scapular retraction Side bilateral Resistance #4 band Reps/Minutes x20 1 Standing Exercise Name Tband isos ER/IR/Abd Side left Equipment Used #1 band Reps/Minutes x2 to fatigue Comments increased duration with less fatigue Manual Therapy Treatment Joint Mobilizations 2 Joint Scapulothoracic Direction upward rotation Comments with standing flex/abd today. 1 Joint L GH: post and inferior Grade IV Body Position Hooklying Comments Joint mobilizations with passive ER, flex, abd. Manual Techniques 3 Type Contact-Relax Body Location Left Comments contract into IR, relax with passive ER. Hooklying position . 1 Type PROM L shoulder ER Comments intermittent with joint mobs. Flex, abd, ER. PT-OP-R Modalities Start: 01/15/19 11:28 Freq: Status: Active Protocol: Document 02/11/19 14:36 BS (Rec: 02/11/19 15:44 BS [id number]) Electric Stimulation Electric Stimulation Interferential Current (IFC) Body Location L shoulder Duration (Minutes) 15 Comments Trial today to reduce pain and muscle guarding, monitor response next session. PT-OP-T Assessment and Plan Start: 01/15/19 11:28 Freq: Status: Active Protocol: Document 03/05/19 15:25 BS (Rec: 03/05/19 15:34 BS [email or web address]) Physical Therapy Assessment Assessment Summary Assessment Pt continues to benefit from scapulothoracic mobilizations, scapular stabilization strengthening, and joint mobilizations focusing on L shoulder ER and Abd. Physical Therapy Plan Next Visit Focus/Plan Next Note Type Treatment Note Next Visit Plan Add sidelying ER to HEP. Progress scapular strengthening as able.
--- NOTE | 2019-03-09 15:51 | PT.OTN ---
Current Diagnoses Pain in left shoulder (03/09/19) Physical Therapy Treatment Note PT-OP-A Visit Information Start: 01/15/19 11:28 Freq: Status: Active Protocol: Document 03/09/19 13:55 BS (Rec: 03/09/19 13:56 BS [id number]) Out-Patient Physical Therapy Visit Information Visit Information Visit Type Treatment Note Visit Start Time 13:45 Visit Stop Time 14:30 Total Visit Minutes 45 Visit Number 16 PT-OP-B Current Condition Start: 01/15/19 11:28 Freq: Status: Active Protocol: Document 01/15/19 10:30 AMB (Rec: 01/15/19 15:48 AMB [email or web address]) Current Condition History of Current Condition Onset Date Oct 21 or Nov 22 Current Complaints Left shoulder pain History of Current Condition Shamika noted increased shoulder pain after lifting her mother up from the floor multiple times. She has been noticing increased pain since. 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 She has not been using a sling , but sometimes hooks her arm in her shirt becaue it feels better. Prior Treatments and Tests MRI on 12/08/18 showed mild supraspinatus tear, minimal partial tearing at mytendinous junction of infraspinatus, mild-moderate partial tear at inferiro glenohumeral ligament , and partial tearing at anteroinferior labrum. Prior Functional Status Baseline Function- ADL's Independent Baseline Function- Mobility Independent Current Functional Impairments (Reported) Functional Limitations- ADL's She finds upper body dressing and washing her hair painful. 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 Personal Factors Other Personal Factors That May Effect DMII Therapy/Recovery PT-OP-C Subjective Start: 01/15/19 11:28 Freq: Status: Active Protocol: Document 03/09/19 13:55 BS (Rec: 03/09/19 13:56 BS [id number]) OP-PT Subjective Patient Comments Patient Comments Pt states that she is frustrated with constant L shoulder aching. She is sore today from checking in books at work this am. PT-OP-K Range of Motion Start: 01/15/19 11:28 Freq: Status: Active Protocol: Document 02/16/19 14:30 AMB (Rec: 02/16/19 15:33 AMB [email or web address]) Shoulder Goniometric Range of Motion Shoulder Measured in Degrees Right Active Flexion 112 Extension 50 Abduction 80 Left Passive Testing Position Supine Flexion 130 Abduction 122 External Rotation at 0 degrees Abduction 20 PT-OP-M Strength Start: 01/15/19 11:28 Freq: Status: Active Protocol: Document 01/15/19 10:30 AMB (Rec: 01/15/19 16:00 AMB [email or web address]) Shoulder Strength Shoulder Manual Muscle Testing Right Flexion 3- Fair- Extension 3+ Fair+ Abduction (C5) 2+ Poor+ External Rotation 3 Fair Internal Rotation 3 Fair PT-OP-Q Treatments Start: 01/15/19 11:28 Freq: Status: Active Protocol: Document 03/09/19 13:55 BS (Rec: 03/09/19 14:20 BS [id number]) Cardio Equipment Upper Body Ergometer (UBE) Duration (Minutes) 5 Seat Position 12 Other 2.5' forward, 2.5' backward Therapeutic Exercises Supine Exercises 2 Supine Exercise Name Serratus Punch Side bilateral Resistance Cane OH, 4# Reps/Minutes x15 1 Supine Exercise Name Pec Stretch Equipment Used Foam roll Reps/Minutes x3' Comments palms up, manual downward pressure on B shoulders Sitting Exercises 3 Sitting Exercise Name Lat Stretch with yemeni ball Equipment Used 65cm yemeni ball Reps/Minutes 2x30 hold each Comments forward and lateral Standing Exercises 13 Standing Exercise Name Scapular Clocks Side bilateral Equipment Used #1 band Comments 1,3,5 o'clock 9 Standing Exercise Name flex, abd Resistance no weight Reps/Minutes x15 each Comments scapular assistance upward rot . 7 Standing Exercise Name Tband chaudhry Resistance #2 band Reps/Minutes x20 Comments LUE at 95 deg. 3 Standing Exercise Name Lat pulldowns Equipment Used #4 band Reps/Minutes x20 Comments VCs for upright posture 2 Standing Exercise Name Scapular retraction Side bilateral Resistance #4 band Reps/Minutes 2x12 1 Standing Exercise Name Tband isos ER/IR/Abd Side left Equipment Used #1 band Reps/Minutes x2 to fatigue Comments increased duration with less fatigue Manual Therapy Treatment Joint Mobilizations 2 Joint Scapulothoracic Direction upward rotation Comments with standing flex/abd today. 1 Joint L GH: post and inferior Grade IV Body Position Hooklying Comments Joint mobilizations with passive ER, flex, abd. Manual Techniques 3 Type Contact-Relax Body Location Left Comments contract into IR, relax with passive ER. Hooklying position . 1 Type PROM L shoulder ER Comments intermittent with joint mobs. Flex, abd, ER. PT-OP-R Modalities Start: 01/15/19 11:28 Freq: Status: Active Protocol: Document 02/11/19 14:36 BS (Rec: 02/11/19 15:44 BS [id number]) Electric Stimulation Electric Stimulation Interferential Current (IFC) Body Location L shoulder Duration (Minutes) 15 Comments Trial today to reduce pain and muscle guarding, monitor response next session. PT-OP-T Assessment and Plan Start: 01/15/19 11:28 Freq: Status: Active Protocol: Document 03/09/19 13:55 BS (Rec: 03/09/19 15:49 BS [email or web address]) Physical Therapy Assessment Assessment Summary Assessment Began session with warmup on UBE, followed by mobilizations and PROM. AROM and strengthening performed after mobs today, fewer exercises completed due to L shoulder fatigue and pain with work activity. Physical Therapy Plan Next Visit Focus/Plan Next Note Type Treatment Note Next Visit Plan Assess response to mobilizations prior to AROM and strenthening. Progress scapular strengthening as able . Add I,Y,T
--- NOTE | 2019-03-12 15:48 | PT.OTN ---
Current Diagnoses Pain in left shoulder (03/12/19) Physical Therapy Treatment Note PT-OP-A Visit Information Start: 01/15/19 11:28 Freq: Status: Active Protocol: Document 03/12/19 13:00 BS (Rec: 03/12/19 15:30 BS [email or web address]) Out-Patient Physical Therapy Visit Information Visit Information Visit Type Treatment Note Visit Start Time 13:00 Visit Stop Time 13:45 Total Visit Minutes 45 Visit Number 17 PT-OP-B Current Condition Start: 01/15/19 11:28 Freq: Status: Active Protocol: Document 01/15/19 10:30 AMB (Rec: 01/15/19 15:48 AMB [email or web address]) Current Condition History of Current Condition Onset Date Oct 21 or Nov 22 Current Complaints Left shoulder pain History of Current Condition Shamika noted increased shoulder pain after lifting her mother up from the floor multiple times. She has been noticing increased pain since. 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 She has not been using a sling , but sometimes hooks her arm in her shirt becaue it feels better. Prior Treatments and Tests MRI on 12/08/18 showed mild supraspinatus tear, minimal partial tearing at mytendinous junction of infraspinatus, mild-moderate partial tear at inferiro glenohumeral ligament , and partial tearing at anteroinferior labrum. Prior Functional Status Baseline Function- ADL's Independent Baseline Function- Mobility Independent Current Functional Impairments (Reported) Functional Limitations- ADL's She finds upper body dressing and washing her hair painful. 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 Personal Factors Other Personal Factors That May Effect DMII Therapy/Recovery PT-OP-C Subjective Start: 01/15/19 11:28 Freq: Status: Active Protocol: Document 03/12/19 13:00 BS (Rec: 03/12/19 15:30 BS [email or web address]) OP-PT Subjective Patient Comments Patient Comments Left shoulder was aching all day at work yesterday with checking in books, but feeling pretty good today. PT-OP-K Range of Motion Start: 01/15/19 11:28 Freq: Status: Active Protocol: Document 03/12/19 13:00 BS (Rec: 03/12/19 15:42 BS [email or web address]) Shoulder Goniometric Range of Motion Shoulder Measured in Degrees Left Passive Testing Position Supine Flexion 125 Abduction 120 Left Active Flexion 90 Abduction 56 Shoulder ROM Limitations Comments poor scapulothoracic mechanics and compensation with shoulder elevation with L shoulder flex, abd, ER. PT-OP-M Strength Start: 01/15/19 11:28 Freq: Status: Active Protocol: Document 01/15/19 10:30 AMB (Rec: 01/15/19 16:00 AMB [email or web address]) Shoulder Strength Shoulder Manual Muscle Testing Right Flexion 3- Fair- Extension 3+ Fair+ Abduction (C5) 2+ Poor+ External Rotation 3 Fair Internal Rotation 3 Fair PT-OP-Q Treatments Start: 01/15/19 11:28 Freq: Status: Active Protocol: Document 03/12/19 13:00 BS (Rec: 03/12/19 13:36 BS [id number]) Cardio Equipment Upper Body Ergometer (UBE) Duration (Minutes) 6 Seat Position 12 Other 3' forward, 3' backward Therapeutic Exercises Supine Exercises 2 Supine Exercise Name Serratus Punch Side bilateral Resistance Cane OH, 4# Reps/Minutes 2x12 1 Supine Exercise Name Pec Stretch Equipment Used Foam roll Reps/Minutes x3' Comments palms up, over pressure on B shoulders Prone Exercises 1 Prone Exercise Name I, Y Side left Reps/Minutes x8 each Comments mobilization at scapula, poor mechanics Sidelying Exercises 2 Sidelying Exercise Name Sidelying ER Side left Resistance 1# Reps/Minutes 2x10 Comments towel roll under arm 1 Sidelying Exercise Name Sidelying Abduction Side left Resistance 1# Reps/Minutes 2x10 Comments Assist scapular upward rot. Sitting Exercises 3 Sitting Exercise Name Lat Stretch with gabonese ball Equipment Used 65cm gabonese ball Reps/Minutes 2x30 hold each Comments forward and lateral Standing Exercises 9 Standing Exercise Name flex, abd Resistance 1# Reps/Minutes x15 each Comments scapular assistance upward rot . 8 Standing Exercise Name Flex, abd to 90 deg Resistance 1# Reps/Minutes 10 hold at 90 deg Comments x10 each 7 Standing Exercise Name Tband chaudhry Resistance #2 band Reps/Minutes x20 Comments LUE at 95 deg. 3 Standing Exercise Name Lat pulldowns Equipment Used #4 band Reps/Minutes x20 Comments VCs for upright posture 2 Standing Exercise Name Scapular retraction Side bilateral Resistance #4 band Reps/Minutes 2x15 1 Standing Exercise Name Tband isos ER/IR/Abd Side left Equipment Used #1 band Reps/Minutes x2 to fatigue Comments increased duration with less fatigue Manual Therapy Treatment Joint Mobilizations 2 Joint Scapulothoracic Direction upward rotation, medial glide Comments with standing flex/abd and prone I,Y today. 1 Joint L GH: post and inferior Grade IV Body Position Hooklying Comments Joint mobilizations with passive ER, flex, abd. Manual Techniques 3 Type Contact-Relax Body Location Left Comments contract into IR, relax with passive ER. Hooklying position . 1 Type PROM L shoulder ER Comments intermittent with joint mobs. Flex, abd, ER. PT-OP-R Modalities Start: 01/15/19 11:28 Freq: Status: Active Protocol: Document 02/11/19 14:36 BS (Rec: 02/11/19 15:44 BS [id number]) Electric Stimulation Electric Stimulation Interferential Current (IFC) Body Location L shoulder Duration (Minutes) 15 Comments Trial today to reduce pain and muscle guarding, monitor response next session. PT-OP-T Assessment and Plan Start: 01/15/19 11:28 Freq: Status: Active Protocol: Document 03/12/19 13:00 BS (Rec: 03/12/19 15:40 BS [email or web address]) Physical Therapy Assessment Goals Three Impairment ADLs Short Term Goal (STG) Shamika will perform all upper body dressing with 2/10 pain or less. MET STG Duration 4 weeks Residential Goal (LTG) Shamika will wash her hair with her left arm without an increase in pain. PARTIALLY MET, 1-2/10 pain with washing hair. LTG Duration 8 weeks Two Impairment Strength Short Term Goal (STG) Shamika will lift a 10# box from the floor to shoulder height with good body mechanics without an increase in baseline pain. NOT ASSESSED TODAY. STG Duration 4 weeks Major Donor Coordinator Goal (LTG) Shamika will be independent and consistent with a HEP for ROM and strengthening. MET. LTG Duration 8 weeks One Impairment ROM Short Term Goal (STG) Shamika will increase her PROM to 120 degrees of flexion and abduction. MET CURRENTLY AT 125 FLEX AND 120 ABD PROM. STG Duration 4 weeks Residential Goal (LTG) Shamika will increase her AROM to 120 degress of flexion and abduction. LTG Duration 8 weeks Assessment Summary Assessment Pt's L shoulder active and passive ROM remain limited especially in abduction and external rotation. She is no longer guarding with PROM, but a hard end feel is felt with flex, abd, ER. Pt plans to schedule apt with physician for further evaluation. Physical Therapy Plan Frequency and Duration Frequency of Treatment 2x/Week Duration of Treatment 8 weeks Plan of Care Start Date 03/12/19 Plan of Care End Date 05/07/29 Therapeutic Interventions Therapeutic Interventions Aquatic Therapy Home Exercise Program Joint Mobilizations Manual Therapy Neuromuscular Re-education Self-Care/Home Management Soft Tissue Mobilization Taping Therapeutic Activities Therapeutic Exercises Modalities Cold Pack/Ice Massage Electric Stimulation Hot Packs Ultrasound Next Visit Focus/Plan Next Note Type Treatment Note Next Visit Plan Continue to work on L shoulder ROM with mobilizations, AAROM , and scapular mechanics and strengthening.
--- NOTE | 2019-03-12 15:49 | PT.OPPOC ---
Current Diagnoses Pain in left shoulder (03/12/19) Provider Visit Care Team Role Provider Type Cherelle Lopez DO Primary Care Provider Physician Specialty: Family Practice Address: [address] [place] [address], [id number] Email: [email or web address] CHELA Cisneros Attending Provider Advanced Court Stenographer Specialty: [facility] Address: [address] [place] [address], [id number] Email: Plan Of Care PT-OP-T Assessment and Plan Start: 01/15/19 11:28 Freq: Status: Active Protocol: Document 03/12/19 13:00 BS (Rec: 03/12/19 15:40 BS [email or web address]) Physical Therapy Assessment Goals Three Impairment ADLs Short Term Goal (STG) Shamika will perform all upper body dressing with 2/10 pain or less. MET STG Duration 4 weeks Addiction Specialist Goal (LTG) Shamika will wash her hair with her left arm without an increase in pain. PARTIALLY MET, 1-2/10 pain with washing hair. LTG Duration 8 weeks Two Impairment Strength Short Term Goal (STG) Shamika will lift a 10# box from the floor to shoulder height with good body mechanics without an increase in baseline pain. NOT ASSESSED TODAY. STG Duration 4 weeks Penitentiary Goal (LTG) Shamika will be independent and consistent with a HEP for ROM and strengthening. MET. LTG Duration 8 weeks One Impairment ROM Short Term Goal (STG) Shamika will increase her PROM to 120 degrees of flexion and abduction. MET CURRENTLY AT 125 FLEX AND 120 ABD PROM. STG Duration 4 weeks Addiction Specialist Goal (LTG) Shamika will increase her AROM to 120 degress of flexion and abduction. LTG Duration 8 weeks Assessment Summary Assessment Pt's L shoulder active and passive ROM remain limited especially in abduction and external rotation. She is no longer guarding with PROM, but a hard end feel is felt with flex, abd, ER. Pt plans to schedule apt with physician for further evaluation. Physical Therapy Plan Frequency and Duration Frequency of Treatment 2x/Week Duration of Treatment 8 weeks Plan of Care Start Date 03/12/19 Plan of Care End Date 05/07/29 Therapeutic Interventions Therapeutic Interventions Aquatic Therapy Home Exercise Program Joint Mobilizations Manual Therapy Neuromuscular Re-education Self-Care/Home Management Soft Tissue Mobilization Taping Therapeutic Activities Therapeutic Exercises Modalities Cold Pack/Ice Massage Electric Stimulation Hot Packs Ultrasound Next Visit Focus/Plan Next Note Type Treatment Note Next Visit Plan Continue to work on L shoulder ROM with mobilizations, AAROM , and scapular mechanics and strengthening. Plan of Care Dates Plan of Care Start Date 03/12/19 Plan of Care End Date 05/07/29 Please Sign and Return: I have reviewed this Plan of Care and certify that the skilled therapy services above are required to meet the patient?s needs. Physician Signature Date Printed Name and Credentials Clinical Instructor Signature Printed Name and Credentials
--- NOTE | 2019-04-01 08:32 | PT.OTN ---
Current Diagnoses Pain in left shoulder (03/31/19) Physical Therapy Treatment Note PT-OP-A Visit Information Start: 01/15/19 11:28 Freq: Status: Active Protocol: Document 03/31/19 13:00 AMB (Rec: 04/01/19 08:32 AMB [email or web address]) Out-Patient Physical Therapy Visit Information Visit Information Visit Type Treatment Note Visit Start Time 13:00 Visit Stop Time 13:45 Total Visit Minutes 45 Visit Number 18 PT-OP-B Current Condition Start: 01/15/19 11:28 Freq: Status: Active Protocol: Document 01/15/19 10:30 AMB (Rec: 01/15/19 15:48 AMB [email or web address]) Current Condition History of Current Condition Onset Date Oct 21 or Nov 22 Current Complaints Left shoulder pain History of Current Condition Shamika noted increased shoulder pain after lifting her mother up from the floor multiple times. She has been noticing increased pain since. 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 She has not been using a sling , but sometimes hooks her arm in her shirt becaue it feels better. Prior Treatments and Tests MRI on 12/08/18 showed mild supraspinatus tear, minimal partial tearing at mytendinous junction of infraspinatus, mild-moderate partial tear at inferiro glenohumeral ligament , and partial tearing at anteroinferior labrum. Prior Functional Status Baseline Function- ADL's Independent Baseline Function- Mobility Independent Current Functional Impairments (Reported) Functional Limitations- ADL's She finds upper body dressing and washing her hair painful. 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 Personal Factors Other Personal Factors That May Effect DMII Therapy/Recovery PT-OP-C Subjective Start: 01/15/19 11:28 Freq: Status: Active Protocol: Document 03/31/19 13:00 AMB (Rec: 04/01/19 08:32 AMB [email or web address]) OP-PT Subjective Patient Comments Patient Comments Pt got a steroid injection 2 weeks ago from her PCP and was told to be on hold for 2 weeks after that. She has been working on her HEP. PT-OP-K Range of Motion Start: 01/15/19 11:28 Freq: Status: Active Protocol: Document 03/12/19 13:00 BS (Rec: 03/12/19 15:42 BS [email or web address]) Shoulder Goniometric Range of Motion Shoulder Measured in Degrees Left Passive Testing Position Supine Flexion 125 Abduction 120 Left Active Flexion 90 Abduction 56 Shoulder ROM Limitations Comments poor scapulothoracic mechanics and compensation with shoulder elevation with L shoulder flex, abd, ER. PT-OP-M Strength Start: 01/15/19 11:28 Freq: Status: Active Protocol: Document 01/15/19 10:30 AMB (Rec: 01/15/19 16:00 AMB [email or web address]) Shoulder Strength Shoulder Manual Muscle Testing Right Flexion 3- Fair- Extension 3+ Fair+ Abduction (C5) 2+ Poor+ External Rotation 3 Fair Internal Rotation 3 Fair PT-OP-Q Treatments Start: 01/15/19 11:28 Freq: Status: Active Protocol: Document 03/31/19 13:00 AMB (Rec: 04/01/19 08:32 AMB [email or web address]) Therapeutic Exercises Prone Exercises 1 Prone Exercise Name I, Y Side left Reps/Minutes x8 each Comments mobilization at scapula, poor mechanics Sitting Exercises 1 Sitting Exercise Name AAROM Pulleys: scaption, abduction, IR behind back Side left Equipment Used Pulleys Reps/Minutes 5 min Standing Exercises 14 Standing Exercise Name ER stretch against corner Reps/Minutes 30x2 13 Standing Exercise Name Scapular Clocks Side bilateral Equipment Used #1 band Comments 1,3,5 o'clock 6 Standing Exercise Name Cane AAROM IR Side left Reps/Minutes x 15 each Manual Therapy Treatment Joint Mobilizations 1 Joint L GH: post and inferior Grade IV Body Position Hooklying Comments Joint mobilizations with passive ER, flex, abd. Manual Techniques 3 Type Contact-Relax Body Location Left Comments contract into IR, relax with passive ER. Hooklying position . 1 Type PROM L shoulder ER Comments intermittent with joint mobs. Flex, abd, ER. PT-OP-R Modalities Start: 01/15/19 11:28 Freq: Status: Active Protocol: Document 02/11/19 14:36 BS (Rec: 02/11/19 15:44 BS [id number]) Electric Stimulation Electric Stimulation Interferential Current (IFC) Body Location L shoulder Duration (Minutes) 15 Comments Trial today to reduce pain and muscle guarding, monitor response next session. PT-OP-T Assessment and Plan Start: 01/15/19 11:28 Freq: Status: Active Protocol: Document 03/31/19 13:00 AMB (Rec: 04/01/19 08:32 AMB [email or web address]) Physical Therapy Assessment Assessment Summary Assessment Pt overall less painful today, but concerned about IR range. Physical Therapy Plan Frequency and Duration Frequency of Treatment 2x/Week Duration of Treatment 8 weeks Plan of Care Start Date 03/12/19 Plan of Care End Date 05/07/29 Next Visit Focus/Plan Next Note Type Treatment Note Next Visit Plan Continue to work on L shoulder ROM with mobilizations, AAROM , and scapular mechanics and strengthening.
--- NOTE | 2019-04-02 16:30 | PT.OTN ---
Current Diagnoses Pain in left shoulder (04/02/19) Physical Therapy Treatment Note PT-OP-A Visit Information Start: 01/15/19 11:28 Freq: Status: Active Protocol: Document 04/02/19 13:00 AMB (Rec: 04/02/19 16:27 AMB [email or web address]) Out-Patient Physical Therapy Visit Information Visit Information Visit Type Treatment Note Visit Start Time 13:00 Visit Stop Time 13:45 Total Visit Minutes 45 Visit Number 19 PT-OP-B Current Condition Start: 01/15/19 11:28 Freq: Status: Active Protocol: Document 01/15/19 10:30 AMB (Rec: 01/15/19 15:48 AMB [email or web address]) Current Condition History of Current Condition Onset Date Oct 21 or Nov 22 Current Complaints Left shoulder pain History of Current Condition Shamika noted increased shoulder pain after lifting her mother up from the floor multiple times. She has been noticing increased pain since. 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 She has not been using a sling , but sometimes hooks her arm in her shirt becaue it feels better. Prior Treatments and Tests MRI on 12/08/18 showed mild supraspinatus tear, minimal partial tearing at mytendinous junction of infraspinatus, mild-moderate partial tear at inferiro glenohumeral ligament , and partial tearing at anteroinferior labrum. Prior Functional Status Baseline Function- ADL's Independent Baseline Function- Mobility Independent Current Functional Impairments (Reported) Functional Limitations- ADL's She finds upper body dressing and washing her hair painful. 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 Personal Factors Other Personal Factors That May Effect DMII Therapy/Recovery PT-OP-C Subjective Start: 01/15/19 11:28 Freq: Status: Active Protocol: Document 04/02/19 13:00 AMB (Rec: 04/02/19 16:27 AMB [email or web address]) OP-PT Subjective Patient Comments Patient Comments Pt states she was not sore after last PT session. Checking in books continues to make her arm sore. PT-OP-K Range of Motion Start: 01/15/19 11:28 Freq: Status: Active Protocol: Document 03/12/19 13:00 BS (Rec: 03/12/19 15:42 BS [email or web address]) Shoulder Goniometric Range of Motion Shoulder Measured in Degrees Left Passive Testing Position Supine Flexion 125 Abduction 120 Left Active Flexion 90 Abduction 56 Shoulder ROM Limitations Comments poor scapulothoracic mechanics and compensation with shoulder elevation with L shoulder flex, abd, ER. PT-OP-M Strength Start: 01/15/19 11:28 Freq: Status: Active Protocol: Document 01/15/19 10:30 AMB (Rec: 01/15/19 16:00 AMB [email or web address]) Shoulder Strength Shoulder Manual Muscle Testing Right Flexion 3- Fair- Extension 3+ Fair+ Abduction (C5) 2+ Poor+ External Rotation 3 Fair Internal Rotation 3 Fair PT-OP-Q Treatments Start: 01/15/19 11:28 Freq: Status: Active Protocol: Document 04/02/19 13:00 AMB (Rec: 04/02/19 16:27 AMB [email or web address]) Cardio Equipment Upper Body Ergometer (UBE) Duration (Minutes) 6 Seat Position 12 Other 3' forward, 3' backward Therapeutic Exercises Supine Exercises 1 Supine Exercise Name Pec Stretch Equipment Used Foam roll Reps/Minutes x3' Comments palms up, over pressure on B shoulders Sidelying Exercises 4 Sidelying Exercise Name sleeper stretch Reps/Minutes 30x5 2 Sidelying Exercise Name Sidelying ER Side left Resistance 1# Reps/Minutes 2x10 Comments towel roll under arm 1 Sidelying Exercise Name Sidelying Abduction Side left Resistance 0# Reps/Minutes 2x10 Comments Assist scapular upward rot. Standing Exercises 14 Standing Exercise Name ER stretch against corner Reps/Minutes 30x2 13 Standing Exercise Name towel stretch into IR Reps/Minutes 30x3 12 Standing Exercise Name wall slides Reps/Minutes 2x10 PT-OP-R Modalities Start: 01/15/19 11:28 Freq: Status: Active Protocol: Document 02/11/19 14:36 BS (Rec: 02/11/19 15:44 BS [id number]) Electric Stimulation Electric Stimulation Interferential Current (IFC) Body Location L shoulder Duration (Minutes) 15 Comments Trial today to reduce pain and muscle guarding, monitor response next session. PT-OP-T Assessment and Plan Start: 01/15/19 11:28 Freq: Status: Active Protocol: Document 04/02/19 13:00 AMB (Rec: 04/02/19 16:27 AMB [email or web address]) Physical Therapy Assessment Assessment Summary Assessment Pt with weakness into external rotation continues, but tolerating more PROM, AAROM. Physical Therapy Plan Frequency and Duration Frequency of Treatment 2x/Week Duration of Treatment 8 weeks Plan of Care Start Date 03/12/19 Plan of Care End Date 05/07/19 Next Visit Focus/Plan Next Note Type Treatment Note Next Visit Plan Continue to work on L shoulder ROM with mobilizations, AAROM , and scapular mechanics and strengthening.
--- NOTE | 2019-04-07 13:00 | PT.OTN ---
Current Diagnoses Pain in left shoulder (04/07/19) Physical Therapy Treatment Note PT-OP-A Visit Information Start: 01/15/19 11:28 Freq: Status: Active Protocol: Document 04/07/19 13:00 DLM (Rec: 04/07/19 15:16 DLM [id number]) Out-Patient Physical Therapy Visit Information Visit Information Visit Type Treatment Note Visit Start Time 13:00 Visit Stop Time 13:48 Total Visit Minutes 48 Visit Number 20 Number of CATTERY OPERATOR Visits 0 Evaluation Information Evaluation Date 01/15/19 PT-OP-B Current Condition Start: 01/15/19 11:28 Freq: Status: Active Protocol: Document 01/15/19 10:30 AMB (Rec: 01/15/19 15:48 AMB [email or web address]) Current Condition History of Current Condition Onset Date Oct 21 or Nov 22 Current Complaints Left shoulder pain History of Current Condition Shamika noted increased shoulder pain after lifting her mother up from the floor multiple times. She has been noticing increased pain since. 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 She has not been using a sling , but sometimes hooks her arm in her shirt becaue it feels better. Prior Treatments and Tests MRI on 12/08/18 showed mild supraspinatus tear, minimal partial tearing at mytendinous junction of infraspinatus, mild-moderate partial tear at inferiro glenohumeral ligament , and partial tearing at anteroinferior labrum. Prior Functional Status Baseline Function- ADL's Independent Baseline Function- Mobility Independent Current Functional Impairments (Reported) Functional Limitations- ADL's She finds upper body dressing and washing her hair painful. 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 Personal Factors Other Personal Factors That May Effect DMII Therapy/Recovery PT-OP-C Subjective Start: 01/15/19 11:28 Freq: Status: Active Protocol: Document 04/07/19 13:00 DLM (Rec: 04/07/19 15:16 DLM [id number]) OP-PT Subjective Patient Comments Patient Comments Her pain has been a lot better since the injection. She has been sleeping better. She uses ice at home. Mild ache in left elbow. Patient Reported Progress Improving PT-OP-K Range of Motion Start: 01/15/19 11:28 Freq: Status: Active Protocol: Document 04/07/19 13:00 DLM (Rec: 04/07/19 15:16 DLM [id number]) Shoulder Goniometric Range of Motion Shoulder Measured in Degrees Left Active Testing Position Supine Flexion 135 Abduction 90 External Rotation at 45 degrees 0 Abduction Shoulder ROM Limitations Shoulder ROM Limitations Soft Tissue Tightness Muscle Weakness Pain PT-OP-M Strength Start: 01/15/19 11:28 Freq: Status: Active Protocol: Document 01/15/19 10:30 AMB (Rec: 01/15/19 16:00 AMB [email or web address]) Shoulder Strength Shoulder Manual Muscle Testing Right Flexion 3- Fair- Extension 3+ Fair+ Abduction (C5) 2+ Poor+ External Rotation 3 Fair Internal Rotation 3 Fair PT-OP-Q Treatments Start: 01/15/19 11:28 Freq: Status: Active Protocol: Document 04/07/19 13:00 DLM (Rec: 04/07/19 15:16 DLM [id number]) Cardio Equipment Upper Body Ergometer (UBE) Duration (Minutes) 6 Seat Position 12 Other 3' forward, 3' backward Therapeutic Exercises Supine Exercises 3 Supine Exercise Name shoulder ER/IR Side left Resistance 1# Reps/Minutes x10 reps 1 Supine Exercise Name Pec Stretch Equipment Used Foam roll Reps/Minutes x3' Comments intermittent palms up due to elbow pain Sidelying Exercises 2 Sidelying Exercise Name Sidelying ER Side left Resistance 1# Reps/Minutes 2x10 Comments towel roll under arm 1 Sidelying Exercise Name Sidelying Abduction Side left Resistance 0# Reps/Minutes 2x10 reps Sitting Exercises 1 Sitting Exercise Name AAROM Pulleys: scaption, abduction, IR behind back Side left Equipment Used Pulleys Reps/Minutes 5 min Manual Therapy Treatment Joint Mobilizations 1 Joint L GH: post and inferior Grade III Body Position Hooklying Comments Joint mobilizations with passive ER Manual Techniques 1 Type PROM L shoulder ER PT-OP-R Modalities Start: 01/15/19 11:28 Freq: Status: Active Protocol: Document 02/11/19 14:36 BS (Rec: 02/11/19 15:44 BS [id number]) Electric Stimulation Electric Stimulation Interferential Current (IFC) Body Location L shoulder Duration (Minutes) 15 Comments Trial today to reduce pain and muscle guarding, monitor response next session. PT-OP-T Assessment and Plan Start: 01/15/19 11:28 Freq: Status: Active Protocol: Document 04/07/19 13:00 DLM (Rec: 04/07/19 15:16 DLM [id number]) Physical Therapy Assessment Goals Three Impairment ADLs Short Term Goal (STG) Shamika will perform all upper body dressing with 2/10 pain or less. MET STG Duration 4 weeks Mobile Qa Tester Goal (LTG) Shamika will wash her hair with her left arm without an increase in pain. PARTIALLY MET, 1-2/10 pain with washing hair. LTG Duration 8 weeks Two Impairment Strength Short Term Goal (STG) Shamika will lift a 10# box from the floor to shoulder height with good body mechanics without an increase in baseline pain. NOT ASSESSED TODAY. STG Duration 4 weeks Mobile Qa Tester Goal (LTG) Shamika will be independent and consistent with a HEP for ROM and strengthening. MET. LTG Duration 8 weeks One Impairment ROM Short Term Goal (STG) Shamika will increase her PROM to 120 degrees of flexion and abduction. MET CURRENTLY AT 125 FLEX AND 120 ABD PROM. STG Duration 4 weeks Mobile Qa Tester Goal (LTG) Shamika will increase her AROM to 120 degress of flexion and abduction. LTG Duration 8 weeks Progress Towards Goals Progress Towards Goals Progressing Toward Goals Progress Comments increased shoulder ROM Assessment Summary Assessment Pt demonstrates improved shoulder AROM. Compensations continue to be present with increased scapular mobility and shoulder shrug. Pt reports improved pain control over- all. She seems encouraged by her progress. Pt in good spirits today. Pt can functionally get greater than 90 degrees of active abduction if she compensates with anterior arc above 90 degrees. Physical Therapy Plan Frequency and Duration Frequency of Treatment 2x/Week Duration of Treatment 8 weeks Plan of Care Start Date 03/12/19 Plan of Care End Date 05/07/19 Therapeutic Interventions Therapeutic Interventions Aquatic Therapy Home Exercise Program Joint Mobilizations Manual Therapy Neuromuscular Re-education Self-Care/Home Management Soft Tissue Mobilization Taping Therapeutic Activities Therapeutic Exercises Modalities Cold Pack/Ice Massage Electric Stimulation Hot Packs Ultrasound Next Visit Focus/Plan Next Note Type Treatment Note Next Visit Plan focus on shoulder ROM, minimize compensations
--- NOTE | 2019-04-09 13:55 | PT.OTN ---
Current Diagnoses Pain in left shoulder (04/09/19) Physical Therapy Treatment Note PT-OP-A Visit Information Start: 01/15/19 11:28 Freq: Status: Active Protocol: Document 04/09/19 13:55 DLM (Rec: 04/09/19 15:09 DLM [id number]) Out-Patient Physical Therapy Visit Information Visit Information Visit Type Treatment Note Visit Start Time 13:55 Visit Stop Time 14:42 Total Visit Minutes 47 Visit Number 21 Number of DIGITAL PRODUCT SPECIALIST Visits 0 Evaluation Information Evaluation Date 01/15/19 PT-OP-B Current Condition Start: 01/15/19 11:28 Freq: Status: Active Protocol: Document 01/15/19 10:30 AMB (Rec: 01/15/19 15:48 AMB [email or web address]) Current Condition History of Current Condition Onset Date Oct 21 or Nov 22 Current Complaints Left shoulder pain History of Current Condition Shamika noted increased shoulder pain after lifting her mother up from the floor multiple times. She has been noticing increased pain since. 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 She has not been using a sling , but sometimes hooks her arm in her shirt becaue it feels better. Prior Treatments and Tests MRI on 12/08/18 showed mild supraspinatus tear, minimal partial tearing at mytendinous junction of infraspinatus, mild-moderate partial tear at inferiro glenohumeral ligament , and partial tearing at anteroinferior labrum. Prior Functional Status Baseline Function- ADL's Independent Baseline Function- Mobility Independent Current Functional Impairments (Reported) Functional Limitations- ADL's She finds upper body dressing and washing her hair painful. 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 Gets aching her elbow sometimes Patient Reported Progress Improving PT-OP-K Range of Motion Start: 01/15/19 11:28 Freq: Status: Active Protocol: Document 04/07/19 13:00 DLM (Rec: 04/07/19 15:16 DLM [id number]) Shoulder Goniometric Range of Motion Shoulder Measured in Degrees Left Active Testing Position Supine Flexion 135 Abduction 90 External Rotation at 45 degrees 0 Abduction Shoulder ROM Limitations Shoulder ROM Limitations Soft Tissue Tightness Muscle Weakness Pain PT-OP-M Strength Start: 01/15/19 11:28 Freq: Status: Active Protocol: Document 01/15/19 10:30 AMB (Rec: 01/15/19 16:00 AMB [email or web address]) Shoulder Strength Shoulder Manual Muscle Testing Right Flexion 3- Fair- Extension 3+ Fair+ Abduction (C5) 2+ Poor+ External Rotation 3 Fair Internal Rotation 3 Fair PT-OP-Q Treatments Start: 01/15/19 11:28 Freq: Status: Active Protocol: Document 04/09/19 13:55 DLM (Rec: 04/09/19 15:09 DLM [id number]) Therapeutic Exercises Supine Exercises 3 Supine Exercise Name shoulder ER/IR Side left Resistance 2# Equipment Used end range stretch Reps/Minutes x10 reps Comments guides by therapist 2 Supine Exercise Name Serratus Punch Side bilateral Reps/Minutes 15 reps 1 Supine Exercise Name Pec Stretch Equipment Used Foam roll Reps/Minutes x3' Comments palms up as tolerated Sidelying Exercises 4 Sidelying Exercise Name sleeper stretch Comments review next visit 2 Sidelying Exercise Name Sidelying ER Side left Resistance 1#, 2# Reps/Minutes 2x10 Comments towel roll under arm 1 Sidelying Exercise Name Sidelying Abduction Side left Resistance 0# Reps/Minutes 2x10 reps Sitting Exercises 1 Sitting Exercise Name AAROM Pulleys: scaption, abduction, IR behind back Side left Equipment Used Pulleys Reps/Minutes 5 min Standing Exercises 14 Standing Exercise Name ER stretch against corner Equipment Used towel roll at elbow Reps/Minutes 30x2 Comments v.c. for technique PT-OP-R Modalities Start: 01/15/19 11:28 Freq: Status: Active Protocol: Document 02/11/19 14:36 BS (Rec: 02/11/19 15:44 BS [id number]) Electric Stimulation Electric Stimulation Interferential Current (IFC) Body Location L shoulder Duration (Minutes) 15 Comments Trial today to reduce pain and muscle guarding, monitor response next session. PT-OP-T Assessment and Plan Start: 01/15/19 11:28 Freq: Status: Active Protocol: Document 04/09/19 13:55 DLM (Rec: 04/09/19 15:09 DLM [id number]) Physical Therapy Assessment Goals Three Impairment ADLs Short Term Goal (STG) Shamika will perform all upper body dressing with 2/10 pain or less. MET STG Duration 4 weeks Snf Goal (LTG) Shamika will wash her hair with her left arm without an increase in pain. PARTIALLY MET, 1-2/10 pain with washing hair. LTG Duration 8 weeks Two Impairment Strength Short Term Goal (STG) Shamika will lift a 10# box from the floor to shoulder height with good body mechanics without an increase in baseline pain. NOT ASSESSED TODAY. STG Duration 4 weeks Bit Sharpener Goal (LTG) Shamika will be independent and consistent with a HEP for ROM and strengthening. MET. LTG Duration 8 weeks One Impairment ROM Short Term Goal (STG) Shamika will increase her PROM to 120 degrees of flexion and abduction. MET CURRENTLY AT 125 FLEX AND 120 ABD PROM. STG Duration 4 weeks Snf Goal (LTG) Shamika will increase her AROM to 120 degress of flexion and abduction. LTG Duration 8 weeks Progress Towards Goals Progress Towards Goals Progressing Toward Goals Assessment Summary Assessment She tolerated her exercises well with some pain during the exercises. Intermittent left elbow aching continues. She feels her ability to reach up is improving at home. ER ROM is the most limited and slowest to respond. She uses excessive scapular motions as part of her compensations. She seems encouraged by her progress. Physical Therapy Plan Frequency and Duration Frequency of Treatment 2x/Week Duration of Treatment 8 weeks Plan of Care Start Date 03/12/19 Plan of Care End Date 05/07/19 Therapeutic Interventions Therapeutic Interventions Aquatic Therapy Home Exercise Program Joint Mobilizations Manual Therapy Neuromuscular Re-education Self-Care/Home Management Soft Tissue Mobilization Taping Therapeutic Activities Therapeutic Exercises Modalities Cold Pack/Ice Massage Electric Stimulation Hot Packs Ultrasound Next Visit Focus/Plan Next Note Type Treatment Note Next Visit Plan focus on shoulder ROM, minimize compensations
--- NOTE | 2019-04-14 16:04 | PT.OTN ---
Current Diagnoses Pain in left shoulder (04/14/19) Physical Therapy Treatment Note PT-OP-A Visit Information Start: 01/15/19 11:28 Freq: Status: Active Protocol: Document 04/14/19 14:30 AMB (Rec: 04/14/19 16:04 AMB [email or web address]) Out-Patient Physical Therapy Visit Information Visit Information Visit Type Treatment Note Visit Start Time 14:30 Visit Stop Time 15:15 Total Visit Minutes 45 Visit Number 22 PT-OP-B Current Condition Start: 01/15/19 11:28 Freq: Status: Active Protocol: Document 01/15/19 10:30 AMB (Rec: 01/15/19 15:48 AMB [email or web address]) Current Condition History of Current Condition Onset Date Oct 21 or Nov 22 Current Complaints Left shoulder pain History of Current Condition Shamika noted increased shoulder pain after lifting her mother up from the floor multiple times. She has been noticing increased pain since. 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 She has not been using a sling , but sometimes hooks her arm in her shirt becaue it feels better. Prior Treatments and Tests MRI on 12/08/18 showed mild supraspinatus tear, minimal partial tearing at mytendinous junction of infraspinatus, mild-moderate partial tear at inferiro glenohumeral ligament , and partial tearing at anteroinferior labrum. Prior Functional Status Baseline Function- ADL's Independent Baseline Function- Mobility Independent Current Functional Impairments (Reported) Functional Limitations- ADL's She finds upper body dressing and washing her hair painful. 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 Personal Factors Other Personal Factors That May Effect DMII Therapy/Recovery PT-OP-C Subjective Start: 01/15/19 11:28 Freq: Status: Active Protocol: Document 04/14/19 14:30 AMB (Rec: 04/14/19 16:04 AMB [email or web address]) OP-PT Subjective Patient Comments Patient Comments Overall pain improving, still feels stiff ilana into rotational movements. PT-OP-K Range of Motion Start: 01/15/19 11:28 Freq: Status: Active Protocol: Document 04/07/19 13:00 DLM (Rec: 04/07/19 15:16 DLM [id number]) Shoulder Goniometric Range of Motion Shoulder Measured in Degrees Left Active Testing Position Supine Flexion 135 Abduction 90 External Rotation at 45 degrees 0 Abduction Shoulder ROM Limitations Shoulder ROM Limitations Soft Tissue Tightness Muscle Weakness Pain PT-OP-M Strength Start: 01/15/19 11:28 Freq: Status: Active Protocol: Document 01/15/19 10:30 AMB (Rec: 01/15/19 16:00 AMB [email or web address]) Shoulder Strength Shoulder Manual Muscle Testing Right Flexion 3- Fair- Extension 3+ Fair+ Abduction (C5) 2+ Poor+ External Rotation 3 Fair Internal Rotation 3 Fair PT-OP-Q Treatments Start: 01/15/19 11:28 Freq: Status: Active Protocol: Document 04/14/19 14:30 AMB (Rec: 04/14/19 16:04 AMB [email or web address]) Therapeutic Exercises Supine Exercises 3 Supine Exercise Name shoulder ER/IR Side left Resistance 2# Equipment Used end range stretch Reps/Minutes x10 reps Comments guides by therapist Sidelying Exercises 4 Sidelying Exercise Name sleeper stretch Comments handout provided 2 Sidelying Exercise Name Sidelying ER Side left Resistance 1#, 2# Reps/Minutes 2x10 Comments towel roll under arm 1 Sidelying Exercise Name Sidelying Abduction Side left Resistance 1# Reps/Minutes 2x10 reps Sitting Exercises 1 Sitting Exercise Name AAROM Pulleys: scaption, abduction, IR behind back Side left Equipment Used Pulleys Reps/Minutes 5 min Standing Exercises 14 Standing Exercise Name ER stretch against corner Equipment Used towel roll at elbow Reps/Minutes 30x2 Comments v.c. for technique Manual Therapy Treatment Joint Mobilizations 1 Joint L GH: post and inferior Grade III Body Position Hooklying Comments Joint mobilizations with passive ER/IR PT-OP-R Modalities Start: 01/15/19 11:28 Freq: Status: Active Protocol: Document 02/11/19 14:36 BS (Rec: 02/11/19 15:44 BS [id number]) Electric Stimulation Electric Stimulation Interferential Current (IFC) Body Location L shoulder Duration (Minutes) 15 Comments Trial today to reduce pain and muscle guarding, monitor response next session. PT-OP-T Assessment and Plan Start: 01/15/19 11:28 Freq: Status: Active Protocol: Document 04/14/19 14:30 AMB (Rec: 04/14/19 16:04 AMB [email or web address]) Physical Therapy Assessment Assessment Summary Assessment Shamika continues to be tight into ER and IR, but overall pain improving, continues to feel radiating pain into elbow with end range. Physical Therapy Plan Frequency and Duration Frequency of Treatment 2x/Week Duration of Treatment 8 weeks Plan of Care Start Date 03/12/19 Plan of Care End Date 05/07/19 Next Visit Focus/Plan Next Note Type Treatment Note Next Visit Plan focus on shoulder ROM, minimize compensations
--- NOTE | 2019-04-16 13:00 | PT.OTN ---
Current Diagnoses Pain in left shoulder (04/16/19) Physical Therapy Treatment Note PT-OP-A Visit Information Start: 01/15/19 11:28 Freq: Status: Active Protocol: Document 04/16/19 13:00 DLM (Rec: 04/16/19 17:53 DLM [id number]) Out-Patient Physical Therapy Visit Information Visit Information Visit Type Treatment Note Visit Start Time 13:00 Visit Stop Time 13:45 Total Visit Minutes 45 Visit Number 23 Number of JOGGLE PRESS OPERATOR Visits 0 Evaluation Information Evaluation Date 01/15/19 PT-OP-B Current Condition Start: 01/15/19 11:28 Freq: Status: Active Protocol: Document 01/15/19 10:30 AMB (Rec: 01/15/19 15:48 AMB [email or web address]) Current Condition History of Current Condition Onset Date Oct 21 or Nov 22 Current Complaints Left shoulder pain History of Current Condition Shamika noted increased shoulder pain after lifting her mother up from the floor multiple times. She has been noticing increased pain since. 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 She has not been using a sling , but sometimes hooks her arm in her shirt becaue it feels better. Prior Treatments and Tests MRI on 12/08/18 showed mild supraspinatus tear, minimal partial tearing at mytendinous junction of infraspinatus, mild-moderate partial tear at inferiro glenohumeral ligament , and partial tearing at anteroinferior labrum. Prior Functional Status Baseline Function- ADL's Independent Baseline Function- Mobility Independent Current Functional Impairments (Reported) Functional Limitations- ADL's She finds upper body dressing and washing her hair painful. 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 Personal Factors Other Personal Factors That May Effect DMII Therapy/Recovery PT-OP-C Subjective Start: 01/15/19 11:28 Freq: Status: Active Protocol: Document 04/16/19 13:00 DLM (Rec: 04/16/19 17:53 DLM [id number]) OP-PT Subjective Patient Comments Patient Comments She thinks she over-did it with her shoulder at work by lifting a box up over her head . The sleeper stretch makes her sore. PT-OP-K Range of Motion Start: 01/15/19 11:28 Freq: Status: Active Protocol: Document 04/07/19 13:00 DLM (Rec: 04/07/19 15:16 DLM [id number]) Shoulder Goniometric Range of Motion Shoulder Measured in Degrees Left Active Testing Position Supine Flexion 135 Abduction 90 External Rotation at 45 degrees 0 Abduction Shoulder ROM Limitations Shoulder ROM Limitations Soft Tissue Tightness Muscle Weakness Pain PT-OP-M Strength Start: 01/15/19 11:28 Freq: Status: Active Protocol: Document 01/15/19 10:30 AMB (Rec: 01/15/19 16:00 AMB [email or web address]) Shoulder Strength Shoulder Manual Muscle Testing Right Flexion 3- Fair- Extension 3+ Fair+ Abduction (C5) 2+ Poor+ External Rotation 3 Fair Internal Rotation 3 Fair PT-OP-Q Treatments Start: 01/15/19 11:28 Freq: Status: Active Protocol: Document 04/16/19 13:00 DLM (Rec: 04/16/19 17:53 DLM [id number]) Cardio Equipment Upper Body Ergometer (UBE) Duration (Minutes) 6 Seat Position 12 Other 3' forward, 3' backward Therapeutic Exercises Supine Exercises 5 Supine Exercise Name Shld ER with cane Side left Resistance AAROM Reps/Minutes 8 reps 4 Supine Exercise Name Shoulder flexion Side left Resistance 1# Reps/Minutes 10 reps 3 Supine Exercise Name shoulder ER/IR Side left Resistance 2# Equipment Used end range stretch Reps/Minutes x10 reps Comments guides by therapist Sidelying Exercises 4 Sidelying Exercise Name sleeper stretch Reps/Minutes 5 reps 2 Sidelying Exercise Name Sidelying ER Side left Resistance 1#, 2# Reps/Minutes 2x10 Comments towel roll under arm 1 Sidelying Exercise Name Sidelying Abduction Side left Resistance 1# Reps/Minutes 2x10 reps Sitting Exercises 1 Sitting Exercise Name AAROM Pulleys: scaption, abduction, IR behind back Comments reviewed home use Standing Exercises 14 Standing Exercise Name ER stretch against corner Equipment Used towel roll at elbow Reps/Minutes 30x2 Comments v.c. for technique Manual Therapy Treatment Joint Mobilizations 1 Joint L GH: post and inferior Grade III Body Position Hooklying Comments Joint mobilizations with passive ER/IR PT-OP-R Modalities Start: 01/15/19 11:28 Freq: Status: Active Protocol: Document 02/11/19 14:36 BS (Rec: 02/11/19 15:44 BS [id number]) Electric Stimulation Electric Stimulation Interferential Current (IFC) Body Location L shoulder Duration (Minutes) 15 Comments Trial today to reduce pain and muscle guarding, monitor response next session. PT-OP-T Assessment and Plan Start: 01/15/19 11:28 Freq: Status: Active Protocol: Document 04/16/19 13:00 DLM (Rec: 04/16/19 17:53 DLM [id number]) Physical Therapy Assessment Goals Three Impairment ADLs Short Term Goal (STG) Shamika will perform all upper body dressing with 2/10 pain or less. MET STG Duration 4 weeks Retirement Goal (LTG) Shamika will wash her hair with her left arm without an increase in pain. PARTIALLY MET, 1-2/10 pain with washing hair. LTG Duration 8 weeks Two Impairment Strength Short Term Goal (STG) Shamika will lift a 10# box from the floor to shoulder height with good body mechanics without an increase in baseline pain. NOT ASSESSED TODAY. STG Duration 4 weeks Retirement Goal (LTG) Shamika will be independent and consistent with a HEP for ROM and strengthening. MET. LTG Duration 8 weeks One Impairment ROM Short Term Goal (STG) Shamika will increase her PROM to 120 degrees of flexion and abduction. MET CURRENTLY AT 125 FLEX AND 120 ABD PROM. STG Duration 4 weeks Retirement Goal (LTG) Shamika will increase her AROM to 120 degress of flexion and abduction. LTG Duration 8 weeks Assessment Summary Assessment She tolerated treatment well with soreness with IR and ER. No modalities needed for pain management today. Small improvement in ER ROM noted during exercises today. Scapular compensations continue. Physical Therapy Plan Frequency and Duration Frequency of Treatment 2x/Week Duration of Treatment 8 weeks Plan of Care Start Date 03/12/19 Plan of Care End Date 05/07/19 Therapeutic Interventions Therapeutic Interventions Aquatic Therapy Home Exercise Program Joint Mobilizations Manual Therapy Neuromuscular Re-education Self-Care/Home Management Soft Tissue Mobilization Taping Therapeutic Activities Therapeutic Exercises Modalities Cold Pack/Ice Massage Electric Stimulation Hot Packs Ultrasound Next Visit Focus/Plan Next Note Type Treatment Note Next Visit Plan focus on shoulder ROM, minimize compensations
--- NOTE | 2019-04-28 13:47 | PT.OTN ---
Current Diagnoses Pain in left shoulder (04/28/19) Physical Therapy Treatment Note PT-OP-A Visit Information Start: 01/15/19 11:28 Freq: Status: Active Protocol: Document 04/28/19 09:30 AMB (Rec: 04/28/19 09:42 AMB [id number]) Out-Patient Physical Therapy Visit Information Visit Information Visit Type Treatment Note Visit Start Time 09:30 Visit Stop Time 10:15 Total Visit Minutes 45 Visit Number 24 PT-OP-B Current Condition Start: 01/15/19 11:28 Freq: Status: Active Protocol: Document 01/15/19 10:30 AMB (Rec: 01/15/19 15:48 AMB [email or web address]) Current Condition History of Current Condition Onset Date Oct 21 or Nov 22 Current Complaints Left shoulder pain History of Current Condition Shamika noted increased shoulder pain after lifting her mother up from the floor multiple times. She has been noticing increased pain since. 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 She has not been using a sling , but sometimes hooks her arm in her shirt becaue it feels better. Prior Treatments and Tests MRI on 12/08/18 showed mild supraspinatus tear, minimal partial tearing at mytendinous junction of infraspinatus, mild-moderate partial tear at inferiro glenohumeral ligament , and partial tearing at anteroinferior labrum. Prior Functional Status Baseline Function- ADL's Independent Baseline Function- Mobility Independent Current Functional Impairments (Reported) Functional Limitations- ADL's She finds upper body dressing and washing her hair painful. 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 Personal Factors Other Personal Factors That May Effect DMII Therapy/Recovery PT-OP-C Subjective Start: 01/15/19 11:28 Freq: Status: Active Protocol: Document 04/28/19 09:30 AMB (Rec: 04/28/19 09:42 AMB [id number]) OP-PT Subjective Patient Comments Patient Comments Pt is feeling like pain is about 2-3/10. PT-OP-K Range of Motion Start: 01/15/19 11:28 Freq: Status: Active Protocol: Document 04/28/19 09:42 AMB (Rec: 04/28/19 09:45 AMB [id number]) Shoulder Goniometric Range of Motion Shoulder Left Passive Flexion 130 Abduction 125 PT-OP-M Strength Start: 01/15/19 11:28 Freq: Status: Active Protocol: Document 01/15/19 10:30 AMB (Rec: 01/15/19 16:00 AMB [email or web address]) Shoulder Strength Shoulder Manual Muscle Testing Right Flexion 3- Fair- Extension 3+ Fair+ Abduction (C5) 2+ Poor+ External Rotation 3 Fair Internal Rotation 3 Fair PT-OP-Q Treatments Start: 01/15/19 11:28 Freq: Status: Active Protocol: Document 04/28/19 09:30 AMB (Rec: 04/28/19 13:47 AMB [email or web address]) Cardio Equipment Upper Body Ergometer (UBE) Duration (Minutes) 6 Seat Position 12 Other 3' forward, 3' backward Therapeutic Exercises Supine Exercises 3 Supine Exercise Name shoulder ER/IR Side left Resistance 2# Equipment Used end range stretch Reps/Minutes x10 reps Comments guides by therapist Sidelying Exercises 4 Sidelying Exercise Name sleeper stretch Reps/Minutes 5 reps 2 Sidelying Exercise Name Sidelying ER Side left Resistance 3# Reps/Minutes 2x10 Comments towel roll under arm 1 Sidelying Exercise Name Sidelying Abduction Side left Resistance 2# Reps/Minutes 2x10 reps Sitting Exercises 1 Sitting Exercise Name AAROM Pulleys: scaption, abduction, IR behind back Reps/Minutes 5 min Comments reviewed home use Standing Exercises 14 Standing Exercise Name ER stretch against corner Equipment Used towel roll at elbow Reps/Minutes 30x2 Comments v.c. for technique Manual Therapy Treatment Soft Tissue Mobilization 1 Body Location subscap MFR Intensity/Depth Moderate Joint Mobilizations 1 Joint L GH: post and inferior Grade III Body Position Hooklying Comments Joint mobilizations with passive ER/IR PT-OP-R Modalities Start: 01/15/19 11:28 Freq: Status: Active Protocol: Document 02/11/19 14:36 BS (Rec: 02/11/19 15:44 BS [id number]) Electric Stimulation Electric Stimulation Interferential Current (IFC) Body Location L shoulder Duration (Minutes) 15 Comments Trial today to reduce pain and muscle guarding, monitor response next session. PT-OP-T Assessment and Plan Start: 01/15/19 11:28 Freq: Status: Active Protocol: Document 04/28/19 09:46 AMB (Rec: 04/28/19 09:57 AMB [id number]) Physical Therapy Assessment Assessment Summary Assessment Shamika is doing well. Pain continues with ER/IR. Physical Therapy Plan Next Visit Focus/Plan Next Note Type Treatment Note Next Visit Plan continue to strengthen and progress ER/IR.
--- NOTE | 2019-04-30 10:14 | PT.OTN ---
Current Diagnoses Pain in left shoulder (04/30/19) Physical Therapy Treatment Note PT-OP-A Visit Information Start: 01/15/19 11:28 Freq: Status: Active Protocol: Document 04/30/19 09:30 AMB (Rec: 04/30/19 09:38 AMB [id number]) Out-Patient Physical Therapy Visit Information Visit Information Visit Type Treatment Note Visit Start Time 09:30 Visit Stop Time 10:15 Total Visit Minutes 45 Visit Number 25 PT-OP-B Current Condition Start: 01/15/19 11:28 Freq: Status: Active Protocol: Document 01/15/19 10:30 AMB (Rec: 01/15/19 15:48 AMB [email or web address]) Current Condition History of Current Condition Onset Date Oct 21 or Nov 22 Current Complaints Left shoulder pain History of Current Condition Shamika noted increased shoulder pain after lifting her mother up from the floor multiple times. She has been noticing increased pain since. 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 She has not been using a sling , but sometimes hooks her arm in her shirt becaue it feels better. Prior Treatments and Tests MRI on 12/08/18 showed mild supraspinatus tear, minimal partial tearing at mytendinous junction of infraspinatus, mild-moderate partial tear at inferiro glenohumeral ligament , and partial tearing at anteroinferior labrum. Prior Functional Status Baseline Function- ADL's Independent Baseline Function- Mobility Independent Current Functional Impairments (Reported) Functional Limitations- ADL's She finds upper body dressing and washing her hair painful. 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 Personal Factors Other Personal Factors That May Effect DMII Therapy/Recovery PT-OP-C Subjective Start: 01/15/19 11:28 Freq: Status: Active Protocol: Document 04/30/19 09:30 AMB (Rec: 04/30/19 09:38 AMB [id number]) OP-PT Subjective Patient Comments Patient Comments Pt will be seeing doctor on May 05. PT-OP-K Range of Motion Start: 01/15/19 11:28 Freq: Status: Active Protocol: Document 04/28/19 09:42 AMB (Rec: 04/28/19 09:45 AMB [id number]) Shoulder Goniometric Range of Motion Shoulder Left Passive Flexion 130 Abduction 125 PT-OP-M Strength Start: 01/15/19 11:28 Freq: Status: Active Protocol: Document 01/15/19 10:30 AMB (Rec: 01/15/19 16:00 AMB [email or web address]) Shoulder Strength Shoulder Manual Muscle Testing Right Flexion 3- Fair- Extension 3+ Fair+ Abduction (C5) 2+ Poor+ External Rotation 3 Fair Internal Rotation 3 Fair PT-OP-Q Treatments Start: 01/15/19 11:28 Freq: Status: Active Protocol: Document 04/30/19 09:30 AMB (Rec: 04/30/19 09:53 AMB [id number]) Therapeutic Exercises Supine Exercises 3 Supine Exercise Name shoulder ER/IR Side left Resistance 2# Equipment Used end range stretch Reps/Minutes x10 reps Comments guides by therapist Sitting Exercises 1 Sitting Exercise Name AAROM Pulleys: scaption, abduction, IR behind back Reps/Minutes 5 min Comments reviewed home use Standing Exercises 14 Standing Exercise Name ER stretch against corner Equipment Used towel roll at elbow Reps/Minutes 30x2 Comments v.c. for technique Manual Therapy Treatment Soft Tissue Mobilization 1 Body Location subscap/ ant deltoid MFR Intensity/Depth Moderate Joint Mobilizations 1 Joint L GH: post and inferior Grade III Body Position Hooklying Comments Joint mobilizations with passive ER/IR PT-OP-R Modalities Start: 01/15/19 11:28 Freq: Status: Active Protocol: Document 02/11/19 14:36 BS (Rec: 02/11/19 15:44 BS [id number]) Electric Stimulation Electric Stimulation Interferential Current (IFC) Body Location L shoulder Duration (Minutes) 15 Comments Trial today to reduce pain and muscle guarding, monitor response next session. PT-OP-T Assessment and Plan Start: 01/15/19 11:28 Freq: Status: Active Protocol: Document 04/30/19 09:30 AMB (Rec: 04/30/19 09:53 AMB [id number]) Physical Therapy Assessment Assessment Summary Assessment Sore after last appointment for a few hours since we worked on ER. Physical Therapy Plan Next Visit Focus/Plan Next Note Type Treatment Note Next Visit Plan continue to strengthen and progress ER/IR.
--- NOTE | 2019-05-05 13:45 | PT.OTN ---
Current Diagnoses Pain in left shoulder (05/05/19) Physical Therapy Treatment Note PT-OP-A Visit Information Start: 01/15/19 11:28 Freq: Status: Active Protocol: Document 05/05/19 09:40 EA (Rec: 05/05/19 09:46 EA [id number]) Out-Patient Physical Therapy Visit Information Visit Information Visit Type Treatment Note Visit Start Time 09:00 Visit Stop Time 09:50 Total Visit Minutes 50 Visit Number 26 Number of NUCLEAR OPERATIONS SPECIALIST Visits 0 PT-OP-B Current Condition Start: 01/15/19 11:28 Freq: Status: Active Protocol: Document 01/15/19 10:30 AMB (Rec: 01/15/19 15:48 AMB [email or web address]) Current Condition History of Current Condition Onset Date Oct 21 or Nov 22 Current Complaints Left shoulder pain History of Current Condition Shamika noted increased shoulder pain after lifting her mother up from the floor multiple times. She has been noticing increased pain since. 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 She has not been using a sling , but sometimes hooks her arm in her shirt becaue it feels better. Prior Treatments and Tests MRI on 12/08/18 showed mild supraspinatus tear, minimal partial tearing at mytendinous junction of infraspinatus, mild-moderate partial tear at inferiro glenohumeral ligament , and partial tearing at anteroinferior labrum. Prior Functional Status Baseline Function- ADL's Independent Baseline Function- Mobility Independent Current Functional Impairments (Reported) Functional Limitations- ADL's She finds upper body dressing and washing her hair painful. 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 Personal Factors Other Personal Factors That May Effect DMII Therapy/Recovery PT-OP-C Subjective Start: 01/15/19 11:28 Freq: Status: Active Protocol: Document 05/05/19 09:40 EA (Rec: 05/05/19 09:46 EA [id number]) OP-PT Subjective Patient Comments Patient Comments Pt reports compliant with HEP. PT-OP-K Range of Motion Start: 01/15/19 11:28 Freq: Status: Active Protocol: Document 04/28/19 09:42 AMB (Rec: 04/28/19 09:45 AMB [id number]) Shoulder Goniometric Range of Motion Shoulder Left Passive Flexion 130 Abduction 125 PT-OP-M Strength Start: 01/15/19 11:28 Freq: Status: Active Protocol: Document 01/15/19 10:30 AMB (Rec: 01/15/19 16:00 AMB [email or web address]) Shoulder Strength Shoulder Manual Muscle Testing Right Flexion 3- Fair- Extension 3+ Fair+ Abduction (C5) 2+ Poor+ External Rotation 3 Fair Internal Rotation 3 Fair PT-OP-Q Treatments Start: 01/15/19 11:28 Freq: Status: Active Protocol: Document 05/05/19 09:40 EA (Rec: 05/05/19 09:46 EA [id number]) Therapeutic Exercises Supine Exercises 3 Supine Exercise Name shoulder ER/IR Side left Resistance 2# Equipment Used end range stretch Reps/Minutes x10 reps Comments guides by therapist Sidelying Exercises 2 Sidelying Exercise Name Sidelying ER Side left Resistance 1-3# Reps/Minutes 2x10 Comments towel roll under arm 1 Sidelying Exercise Name Sidelying Abduction Side left Resistance 2# Reps/Minutes 2x10 reps Sitting Exercises 1 Sitting Exercise Name AROM Pulleys: scaption, abduction, IR behind back Reps/Minutes 8 min Standing Exercises 14 Standing Exercise Name ER stretch against corner Equipment Used towel roll at elbow Reps/Minutes 30x2 Comments v.c. for technique 13 Standing Exercise Name Table slider flexion stretch Reps/Minutes x 3 mins Manual Therapy Treatment Soft Tissue Mobilization 1 Body Location subscap/ ant deltoid MFR Intensity/Depth Moderate Joint Mobilizations 1 Joint L GH: post and inferior Grade III Body Position Hooklying Comments Joint mobilizations with passive ER/IR PT-OP-R Modalities Start: 01/15/19 11:28 Freq: Status: Active Protocol: Document 05/05/19 09:40 EA (Rec: 05/05/19 09:46 EA [id number]) Hot Pack/Cold Pack Treatment Cold Pack Location left shoulder Patient Position Hooklying Treatment Duration (minutes) 10 Patient Tolerance Good PT-OP-T Assessment and Plan Start: 01/15/19 11:28 Freq: Status: Active Protocol: Document 05/05/19 09:40 EA (Rec: 05/05/19 09:46 EA [id number]) Physical Therapy Assessment Assessment Summary Assessment Tolerated treatment well except with gentle manual stretch toward shoulder ER. Noted high shoulder substitution with abduction and flexion. Limitation to ER seems to normal shoulder glenohumeral joint mob. Advised to cont focus of shoulder ER stretch at home actively. Physical Therapy Plan Next Visit Focus/Plan Next Note Type Treatment Note Next Visit Plan continue to strengthen and progress ER/IR.
--- NOTE | 2019-05-14 15:52 | PT.OTN ---
Current Diagnoses Pain in left shoulder (05/13/19) Physical Therapy Treatment Note PT-OP-A Visit Information Start: 01/15/19 11:28 Freq: Status: Active Protocol: Document 05/13/19 13:00 AMB (Rec: 05/14/19 14:31 AMB [email or web address]) Out-Patient Physical Therapy Visit Information Visit Information Visit Type Progress Note Visit Start Time 13:00 Visit Stop Time 13:45 Total Visit Minutes 45 Visit Number 27 PT-OP-B Current Condition Start: 01/15/19 11:28 Freq: Status: Active Protocol: Document 01/15/19 10:30 AMB (Rec: 01/15/19 15:48 AMB [email or web address]) Current Condition History of Current Condition Onset Date Oct 21 or Nov 22 Current Complaints Left shoulder pain History of Current Condition Shamika noted increased shoulder pain after lifting her mother up from the floor multiple times. She has been noticing increased pain since. 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 She has not been using a sling , but sometimes hooks her arm in her shirt becaue it feels better. Prior Treatments and Tests MRI on 12/08/18 showed mild supraspinatus tear, minimal partial tearing at mytendinous junction of infraspinatus, mild-moderate partial tear at inferiro glenohumeral ligament , and partial tearing at anteroinferior labrum. Prior Functional Status Baseline Function- ADL's Independent Baseline Function- Mobility Independent Current Functional Impairments (Reported) Functional Limitations- ADL's She finds upper body dressing and washing her hair painful. 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 Personal Factors Other Personal Factors That May Effect DMII Therapy/Recovery PT-OP-C Subjective Start: 01/15/19 11:28 Freq: Status: Active Protocol: Document 05/13/19 13:00 AMB (Rec: 05/14/19 14:31 AMB [email or web address]) OP-PT Subjective Patient Comments Patient Comments Pt is going to be seeing ortho next week. PT-OP-K Range of Motion Start: 01/15/19 11:28 Freq: Status: Active Protocol: Document 05/13/19 13:00 AMB (Rec: 05/14/19 15:42 AMB [email or web address]) Shoulder Goniometric Range of Motion Shoulder Left Passive Flexion 135 Abduction 100 External Rotation at 90 degrees 25 Abduction Internal Rotation 85 Left Active Flexion 130 Abduction 90 PT-OP-M Strength Start: 01/15/19 11:28 Freq: Status: Active Protocol: Document 01/15/19 10:30 AMB (Rec: 01/15/19 16:00 AMB [email or web address]) Shoulder Strength Shoulder Manual Muscle Testing Right Flexion 3- Fair- Extension 3+ Fair+ Abduction (C5) 2+ Poor+ External Rotation 3 Fair Internal Rotation 3 Fair PT-OP-Q Treatments Start: 01/15/19 11:28 Freq: Status: Active Protocol: Document 05/13/19 13:00 AMB (Rec: 05/14/19 14:31 AMB [email or web address]) Therapeutic Exercises Supine Exercises 4 Supine Exercise Name Shoulder flexion Side left Resistance 1# Reps/Minutes 10 reps 3 Supine Exercise Name shoulder ER/IR Side left Resistance 2# Equipment Used end range stretch Reps/Minutes x10 reps Comments guides by therapist Sidelying Exercises 1 Sidelying Exercise Name Sidelying Abduction Side left Resistance 2# Reps/Minutes 2x10 reps Sitting Exercises 1 Sitting Exercise Name AROM Pulleys: scaption, abduction, IR behind back Reps/Minutes 8 min Standing Exercises 14 Standing Exercise Name ER stretch against corner Equipment Used towel roll at elbow Reps/Minutes 30x2 Comments v.c. for technique Manual Therapy Treatment Soft Tissue Mobilization 1 Body Location subscap/ ant deltoid MFR Intensity/Depth Moderate Joint Mobilizations 1 Joint L GH: post and inferior Grade III Body Position Hooklying Comments Joint mobilizations with passive ER/IR PT-OP-R Modalities Start: 01/15/19 11:28 Freq: Status: Active Protocol: Document 05/05/19 09:40 EA (Rec: 05/05/19 09:46 EA [id number]) Hot Pack/Cold Pack Treatment Cold Pack Location left shoulder Patient Position Hooklying Treatment Duration (minutes) 10 Patient Tolerance Good PT-OP-T Assessment and Plan Start: 01/15/19 11:28 Freq: Status: Active Protocol: Document 05/13/19 13:00 AMB (Rec: 05/14/19 14:31 AMB [email or web address]) Physical Therapy Assessment Goals Three Impairment ADLs Short Term Goal (STG) Shamika will perform all upper body dressing with 2/10 pain or less. STG Duration MET Risk Management Specialist Goal (LTG) Shamika will wash her hair with her left arm without an increase in pain. PARTIALLY MET, 1-2/10 pain with washing hair. LTG Duration 8 weeks Two Impairment Strength Short Term Goal (STG) Shamika will lift a 10# box from the floor to shoulder height with good body mechanics without an increase in baseline pain. STG Duration MET Risk Management Specialist Goal (LTG) Shamika will be independent and consistent with a HEP for ROM and strengthening. . LTG Duration 8 weeks One Impairment MET Short Term Goal (STG) Shamika will increase her PROM to 120 degrees of flexion and abduction. STG Duration PARTIALLY MET Risk Management Specialist Goal (LTG) Shamika will increase her AROM to 120 degress of flexion and abduction. PARTIALLY MET- PROM LTG Duration 8 weeks Assessment Summary Assessment Shamika has improved with her ROM, but external rotation remains very restricted. She had 25 degrees at the end of the session after manual treatment, but only 15 at beginning of treatment. She continues to be consistent with her HEP. She does have intermittent pain- especially with using the arm at work. She will benefit from continued PT to maximize her ROM and minimize her pain, although she is seeing an ortho MD soon, so we will manage our plan dependent upon their plan. Physical Therapy Plan Frequency and Duration Frequency of Treatment 1x/Week Duration of Treatment 10 weeks Plan of Care Start Date 05/13/19 Plan of Care End Date 07/22/19 Therapeutic Interventions Therapeutic Interventions Aquatic Therapy Home Exercise Program Joint Mobilizations Manual Therapy Neuromuscular Re-education Self-Care/Home Management Soft Tissue Mobilization Taping Therapeutic Activities Therapeutic Exercises Modalities Cold Pack/Ice Massage Electric Stimulation Hot Packs Ultrasound Next Visit Focus/Plan Next Note Type Treatment Note Next Visit Plan continue to strengthen and progress ER/IR.
--- NOTE | 2019-05-14 15:53 | PT.OPPOC ---
Current Diagnoses Pain in left shoulder (05/13/19) Provider Visit Care Team Role Provider Type Cherelle Lopez DO Primary Care Provider Physician Specialty: [facility] Practice Address: [address] [place] [address], [id number] Email: [email or web address] CHELA Cisneros Attending Provider Advanced Evs Attendant Specialty: [facility] Address: [address] [place] [address], [id number] Email: Plan Of Care PT-OP-T Assessment and Plan Start: 01/15/19 11:28 Freq: Status: Active Protocol: Document 05/13/19 13:00 AMB (Rec: 05/14/19 14:31 AMB [email or web address]) Physical Therapy Assessment Goals Three Impairment ADLs Short Term Goal (STG) Shamika will perform all upper body dressing with 2/10 pain or less. STG Duration MET 3D Specialist Goal (LTG) Shamika will wash her hair with her left arm without an increase in pain. PARTIALLY MET, 1-2/10 pain with washing hair. LTG Duration 8 weeks Two Impairment Strength Short Term Goal (STG) Shamika will lift a 10# box from the floor to shoulder height with good body mechanics without an increase in baseline pain. STG Duration MET 3D Specialist Goal (LTG) Shamika will be independent and consistent with a HEP for ROM and strengthening. . LTG Duration 8 weeks One Impairment MET Short Term Goal (STG) Shamika will increase her PROM to 120 degrees of flexion and abduction. STG Duration PARTIALLY MET Custodial Goal (LTG) Shamika will increase her AROM to 120 degress of flexion and abduction. PARTIALLY MET- PROM LTG Duration 8 weeks Assessment Summary Assessment Shamika has improved with her ROM, but external rotation remains very restricted. She had 25 degrees at the end of the session after manual treatment, but only 15 at beginning of treatment. She continues to be consistent with her HEP. She does have intermittent pain- especially with using the arm at work. She will benefit from continued PT to maximize her ROM and minimize her pain, although she is seeing an ortho MD soon, so we will manage our plan dependent upon their plan. Physical Therapy Plan Frequency and Duration Frequency of Treatment 1x/Week Duration of Treatment 10 weeks Plan of Care Start Date 05/13/19 Plan of Care End Date 07/22/19 Therapeutic Interventions Therapeutic Interventions Aquatic Therapy Home Exercise Program Joint Mobilizations Manual Therapy Neuromuscular Re-education Self-Care/Home Management Soft Tissue Mobilization Taping Therapeutic Activities Therapeutic Exercises Modalities Cold Pack/Ice Massage Electric Stimulation Hot Packs Ultrasound Next Visit Focus/Plan Next Note Type Treatment Note Next Visit Plan continue to strengthen and progress ER/IR. Plan of Care Dates Plan of Care Start Date 05/13/19 Plan of Care End Date 07/22/19 Please Sign and Return: I have reviewed this Plan of Care and certify that the skilled therapy services above are required to meet the patient?s needs. Physician Signature Date Printed Name and Credentials Clinical Instructor Signature Printed Name and Credentials
--- NOTE | 2019-05-22 17:13 | PT.OTN ---
Current Diagnoses Pain in left shoulder (05/22/19) Physical Therapy Treatment Note PT-OP-A Visit Information Start: 01/15/19 11:28 Freq: Status: Active Protocol: Document 05/22/19 13:00 AMB (Rec: 05/22/19 13:19 AMB [id number]) Out-Patient Physical Therapy Visit Information Visit Information Visit Type Treatment Note Visit Start Time 13:00 Visit Stop Time 13:45 Total Visit Minutes 45 Visit Number 28 PT-OP-B Current Condition Start: 01/15/19 11:28 Freq: Status: Active Protocol: Document 01/15/19 10:30 AMB (Rec: 01/15/19 15:48 AMB [email or web address]) Current Condition History of Current Condition Onset Date Oct 21 or Nov 22 Current Complaints Left shoulder pain History of Current Condition Shamika noted increased shoulder pain after lifting her mother up from the floor multiple times. She has been noticing increased pain since. 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 She has not been using a sling , but sometimes hooks her arm in her shirt becaue it feels better. Prior Treatments and Tests MRI on 12/08/18 showed mild supraspinatus tear, minimal partial tearing at mytendinous junction of infraspinatus, mild-moderate partial tear at inferiro glenohumeral ligament , and partial tearing at anteroinferior labrum. Prior Functional Status Baseline Function- ADL's Independent Baseline Function- Mobility Independent Current Functional Impairments (Reported) Functional Limitations- ADL's She finds upper body dressing and washing her hair painful. 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 Personal Factors Other Personal Factors That May Effect DMII Therapy/Recovery PT-OP-C Subjective Start: 01/15/19 11:28 Freq: Status: Active Protocol: Document 05/22/19 13:00 AMB (Rec: 05/22/19 13:19 AMB [id number]) OP-PT Subjective Patient Comments Patient Comments Pt is doing well, she was sore after joint injection from doctor. Did CPR this morning which was sore but passed. PT-OP-K Range of Motion Start: 01/15/19 11:28 Freq: Status: Active Protocol: Document 05/13/19 13:00 AMB (Rec: 05/14/19 15:42 AMB [email or web address]) Shoulder Goniometric Range of Motion Shoulder Left Passive Flexion 135 Abduction 100 External Rotation at 90 degrees 25 Abduction Internal Rotation 85 Left Active Flexion 130 Abduction 90 PT-OP-M Strength Start: 01/15/19 11:28 Freq: Status: Active Protocol: Document 01/15/19 10:30 AMB (Rec: 01/15/19 16:00 AMB [email or web address]) Shoulder Strength Shoulder Manual Muscle Testing Right Flexion 3- Fair- Extension 3+ Fair+ Abduction (C5) 2+ Poor+ External Rotation 3 Fair Internal Rotation 3 Fair PT-OP-Q Treatments Start: 01/15/19 11:28 Freq: Status: Active Protocol: Document 05/22/19 13:00 AMB (Rec: 05/25/19 17:05 AMB [email or web address]) Therapeutic Exercises Sidelying Exercises 2 Sidelying Exercise Name Sidelying ER Side left Resistance 1-3# Reps/Minutes 2x10 Comments towel roll under arm 1 Sidelying Exercise Name Sidelying Abduction Side left Resistance 2# Reps/Minutes 2x10 reps Sitting Exercises 1 Sitting Exercise Name AROM Pulleys: scaption, abduction, IR behind back Reps/Minutes 8 min Standing Exercises 14 Standing Exercise Name ER stretch against corner Equipment Used towel roll at elbow Reps/Minutes 30x2 Comments v.c. for technique Manual Therapy Treatment Soft Tissue Mobilization 1 Body Location subscap/ ant deltoid MFR Intensity/Depth Moderate Joint Mobilizations 1 Joint L GH: post and inferior Grade III Body Position Hooklying Comments Joint mobilizations with passive ER/IR PT-OP-R Modalities Start: 01/15/19 11:28 Freq: Status: Active Protocol: Document 05/05/19 09:40 EA (Rec: 05/05/19 09:46 EA [id number]) Hot Pack/Cold Pack Treatment Cold Pack Location left shoulder Patient Position Hooklying Treatment Duration (minutes) 10 Patient Tolerance Good PT-OP-T Assessment and Plan Start: 01/15/19 11:28 Freq: Status: Active Protocol: Document 05/22/19 13:00 AMB (Rec: 05/25/19 17:05 AMB [email or web address]) Physical Therapy Assessment Assessment Summary Assessment Shamika is doing well, although her progression continues to be slow. Pain at end range continues, a bit more painful today than last week. Similar ROM. Physical Therapy Plan Next Visit Focus/Plan Next Note Type Treatment Note Next Visit Plan continue to strengthen and progress ER/IR.
--- NOTE | 2019-05-27 15:46 | PT.OTN ---
Current Diagnoses Pain in left shoulder (05/27/19) Physical Therapy Treatment Note PT-OP-A Visit Information Start: 01/15/19 11:28 Freq: Status: Active Protocol: Document 05/27/19 14:30 AMB (Rec: 05/27/19 16:20 AMB [email or web address]) Out-Patient Physical Therapy Visit Information Visit Information Visit Type Treatment Note Visit Start Time 14:30 Visit Stop Time 15:15 Total Visit Minutes 45 Visit Number 29 PT-OP-B Current Condition Start: 01/15/19 11:28 Freq: Status: Active Protocol: Document 01/15/19 10:30 AMB (Rec: 01/15/19 15:48 AMB [email or web address]) Current Condition History of Current Condition Onset Date Oct 21 or Nov 22 Current Complaints Left shoulder pain History of Current Condition Shamika noted increased shoulder pain after lifting her mother up from the floor multiple times. She has been noticing increased pain since. 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 She has not been using a sling , but sometimes hooks her arm in her shirt becaue it feels better. Prior Treatments and Tests MRI on 12/08/18 showed mild supraspinatus tear, minimal partial tearing at mytendinous junction of infraspinatus, mild-moderate partial tear at inferiro glenohumeral ligament , and partial tearing at anteroinferior labrum. Prior Functional Status Baseline Function- ADL's Independent Baseline Function- Mobility Independent Current Functional Impairments (Reported) Functional Limitations- ADL's She finds upper body dressing and washing her hair painful. 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 Personal Factors Other Personal Factors That May Effect DMII Therapy/Recovery PT-OP-C Subjective Start: 01/15/19 11:28 Freq: Status: Active Protocol: Document 05/27/19 14:30 AMB (Rec: 05/27/19 16:20 AMB [email or web address]) OP-PT Subjective Patient Comments Patient Comments Pt was sore after last visit into the evening, but fine the next day. PT-OP-K Range of Motion Start: 01/15/19 11:28 Freq: Status: Active Protocol: Document 05/13/19 13:00 AMB (Rec: 07/11/19 15:42 AMB [email or web address]) Shoulder Goniometric Range of Motion Shoulder Left Passive Flexion 135 Abduction 100 External Rotation at 90 degrees 25 Abduction Internal Rotation 85 Left Active Flexion 130 Abduction 90 PT-OP-M Strength Start: 01/15/19 11:28 Freq: Status: Active Protocol: Document 01/15/19 10:30 AMB (Rec: 01/15/19 16:00 AMB [email or web address]) Shoulder Strength Shoulder Manual Muscle Testing Right Flexion 3- Fair- Extension 3+ Fair+ Abduction (C5) 2+ Poor+ External Rotation 3 Fair Internal Rotation 3 Fair PT-OP-Q Treatments Start: 01/15/19 11:28 Freq: Status: Active Protocol: Document 05/27/19 14:30 AMB (Rec: 05/28/19 15:45 AMB [email or web address]) Therapeutic Exercises Supine Exercises 4 Supine Exercise Name Shoulder flexion Side left Resistance 2# Reps/Minutes 10 reps Sidelying Exercises 2 Sidelying Exercise Name Sidelying ER Side left Resistance 1-3# Reps/Minutes 2x10 Comments towel roll under arm 1 Sidelying Exercise Name Sidelying Abduction Side left Resistance 2# Reps/Minutes 2x10 reps Sitting Exercises 1 Sitting Exercise Name AROM Pulleys: scaption, abduction, IR behind back Reps/Minutes 8 min Manual Therapy Treatment Joint Mobilizations 1 Joint L GH: post and inferior Grade III Body Position Hooklying Comments Joint mobilizations with passive ER/IR Other Other Manual Treatments PROM with OP into flexion, abd , ER PT-OP-R Modalities Start: 01/15/19 11:28 Freq: Status: Active Protocol: Document 05/05/19 09:40 EA (Rec: 05/05/19 09:46 EA [id number]) Hot Pack/Cold Pack Treatment Cold Pack Location left shoulder Patient Position Hooklying Treatment Duration (minutes) 10 Patient Tolerance Good PT-OP-T Assessment and Plan Start: 01/15/19 11:28 Freq: Status: Active Protocol: Document 05/27/19 14:30 AMB (Rec: 05/28/19 15:46 AMB [email or web address]) Physical Therapy Assessment Assessment Summary Assessment Pt with 20 degrees of ER at end of session. Continues to have pain radiating into elbow at end range. Physical Therapy Plan Next Visit Focus/Plan Next Note Type Treatment Note Next Visit Plan continue to strengthen and progress ER/IR.
--- NOTE | 2019-06-03 16:12 | PT.OTN ---
Current Diagnoses Pain in left shoulder (06/03/19) Physical Therapy Treatment Note PT-OP-A Visit Information Start: 01/15/19 11:28 Freq: Status: Active Protocol: Document 06/03/19 13:00 AMB (Rec: 06/03/19 13:11 AMB [id number]) Out-Patient Physical Therapy Visit Information Visit Information Visit Type Treatment Note Visit Start Time 14:30 Visit Stop Time 15:15 Total Visit Minutes 45 Visit Number 30 PT-OP-B Current Condition Start: 01/15/19 11:28 Freq: Status: Active Protocol: Document 01/15/19 10:30 AMB (Rec: 01/15/19 15:48 AMB [email or web address]) Current Condition History of Current Condition Onset Date Oct 21 or Nov 22 Current Complaints Left shoulder pain History of Current Condition Shamika noted increased shoulder pain after lifting her mother up from the floor multiple times. She has been noticing increased pain since. 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 She has not been using a sling , but sometimes hooks her arm in her shirt becaue it feels better. Prior Treatments and Tests MRI on 12/08/18 showed mild supraspinatus tear, minimal partial tearing at mytendinous junction of infraspinatus, mild-moderate partial tear at inferiro glenohumeral ligament , and partial tearing at anteroinferior labrum. Prior Functional Status Baseline Function- ADL's Independent Baseline Function- Mobility Independent Current Functional Impairments (Reported) Functional Limitations- ADL's She finds upper body dressing and washing her hair painful. 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 Personal Factors Other Personal Factors That May Effect DMII Therapy/Recovery PT-OP-C Subjective Start: 01/15/19 11:28 Freq: Status: Active Protocol: Document 06/03/19 13:00 AMB (Rec: 06/03/19 13:11 AMB [id number]) OP-PT Subjective Patient Comments Patient Comments Pt has been noticing a bit of soreness but overall things are ok. Seeing ortho in 2 weeks. PT-OP-K Range of Motion Start: 01/15/19 11:28 Freq: Status: Active Protocol: Document 05/13/19 13:00 AMB (Rec: 05/14/19 15:42 AMB [email or web address]) Shoulder Goniometric Range of Motion Shoulder Left Passive Flexion 135 Abduction 100 External Rotation at 90 degrees 25 Abduction Internal Rotation 85 Left Active Flexion 130 Abduction 90 PT-OP-M Strength Start: 01/15/19 11:28 Freq: Status: Active Protocol: Document 01/15/19 10:30 AMB (Rec: 01/15/19 16:00 AMB [email or web address]) Shoulder Strength Shoulder Manual Muscle Testing Right Flexion 3- Fair- Extension 3+ Fair+ Abduction (C5) 2+ Poor+ External Rotation 3 Fair Internal Rotation 3 Fair PT-OP-Q Treatments Start: 01/15/19 11:28 Freq: Status: Active Protocol: Document 06/03/19 16:04 AMB (Rec: 06/03/19 16:12 AMB [email or web address]) Therapeutic Exercises Sitting Exercises 1 Sitting Exercise Name AROM Pulleys: scaption, abduction, IR behind back Reps/Minutes 8 min Standing Exercises 14 Standing Exercise Name ER stretch against corner Equipment Used towel roll at elbow Reps/Minutes 30x2 Comments v.c. for technique 13 Standing Exercise Name Table slider flexion stretch Reps/Minutes x 3 mins 12 Standing Exercise Name shoulder ER tband Resistance #2 Reps/Minutes 2x10 Manual Therapy Treatment Joint Mobilizations 1 Joint L GH: post and inferior Grade III Body Position Hooklying Comments Joint mobilizations with passive ER/IR, ER to 25 degrees at end Manual Techniques 3 Type contract relax Comments into ER/IR PT-OP-R Modalities Start: 01/15/19 11:28 Freq: Status: Active Protocol: Document 05/05/19 09:40 EA (Rec: 05/05/19 09:46 EA [id number]) Hot Pack/Cold Pack Treatment Cold Pack Location left shoulder Patient Position Hooklying Treatment Duration (minutes) 10 Patient Tolerance Good PT-OP-T Assessment and Plan Start: 01/15/19 11:28 Freq: Status: Active Protocol: Document 06/03/19 13:00 AMB (Rec: 06/03/19 13:11 AMB [id number]) Physical Therapy Plan Next Visit Focus/Plan Next Note Type Treatment Note Next Visit Plan continue to strengthen and progress ER/IR.
--- NOTE | 2019-06-10 16:08 | PT.OTN ---
Current Diagnoses Pain in left shoulder (06/10/19) Physical Therapy Treatment Note PT-OP-A Visit Information Start: 01/15/19 11:28 Freq: Status: Active Protocol: Document 06/10/19 13:00 AMB (Rec: 06/10/19 13:45 AMB [id number]) Out-Patient Physical Therapy Visit Information Visit Information Visit Type Treatment Note Visit Start Time 13:00 Visit Stop Time 13:45 Total Visit Minutes 45 Visit Number 31 PT-OP-B Current Condition Start: 01/15/19 11:28 Freq: Status: Active Protocol: Document 01/15/19 10:30 AMB (Rec: 01/15/19 15:48 AMB [email or web address]) Current Condition History of Current Condition Onset Date Oct 21 or Nov 22 Current Complaints Left shoulder pain History of Current Condition Shamika noted increased shoulder pain after lifting her mother up from the floor multiple times. She has been noticing increased pain since. 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 She has not been using a sling , but sometimes hooks her arm in her shirt becaue it feels better. Prior Treatments and Tests MRI on 12/08/18 showed mild supraspinatus tear, minimal partial tearing at mytendinous junction of infraspinatus, mild-moderate partial tear at inferiro glenohumeral ligament , and partial tearing at anteroinferior labrum. Prior Functional Status Baseline Function- ADL's Independent Baseline Function- Mobility Independent Current Functional Impairments (Reported) Functional Limitations- ADL's She finds upper body dressing and washing her hair painful. 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 Personal Factors Other Personal Factors That May Effect DMII Therapy/Recovery PT-OP-C Subjective Start: 01/15/19 11:28 Freq: Status: Active Protocol: Document 06/10/19 13:00 AMB (Rec: 06/10/19 13:45 AMB [id number]) OP-PT Subjective Patient Comments Patient Comments Pt notices fatigue at end of day, and soreness with stretches PT-OP-K Range of Motion Start: 01/15/19 11:28 Freq: Status: Active Protocol: Document 05/13/19 13:00 AMB (Rec: 05/14/19 15:42 AMB [email or web address]) Shoulder Goniometric Range of Motion Shoulder Left Passive Flexion 135 Abduction 100 External Rotation at 90 degrees 25 Abduction Internal Rotation 85 Left Active Flexion 130 Abduction 90 PT-OP-M Strength Start: 01/15/19 11:28 Freq: Status: Active Protocol: Document 01/15/19 10:30 AMB (Rec: 01/15/19 16:00 AMB [email or web address]) Shoulder Strength Shoulder Manual Muscle Testing Right Flexion 3- Fair- Extension 3+ Fair+ Abduction (C5) 2+ Poor+ External Rotation 3 Fair Internal Rotation 3 Fair PT-OP-Q Treatments Start: 01/15/19 11:28 Freq: Status: Active Protocol: Document 06/10/19 13:00 AMB (Rec: 06/10/19 16:08 AMB [email or web address]) Therapeutic Exercises Sitting Exercises 1 Sitting Exercise Name AROM Pulleys: scaption, abduction, IR behind back Reps/Minutes 8 min Standing Exercises 14 Standing Exercise Name ER stretch against corner Equipment Used towel roll at elbow Reps/Minutes 30x2 Comments v.c. for technique 13 Standing Exercise Name Table slider flexion stretch Reps/Minutes x 3 mins 12 Standing Exercise Name shoulder ER tband Resistance #2 Reps/Minutes 2x10 Manual Therapy Treatment Joint Mobilizations 1 Joint L GH: post and inferior Grade III Body Position Hooklying Comments Joint mobilizations with passive ER/IR, ER to 25 degrees at end Manual Techniques 3 Type contract relax Comments into ER/IR PT-OP-R Modalities Start: 01/15/19 11:28 Freq: Status: Active Protocol: Document 05/05/19 09:40 EA (Rec: 05/05/19 09:46 EA [id number]) Hot Pack/Cold Pack Treatment Cold Pack Location left shoulder Patient Position Hooklying Treatment Duration (minutes) 10 Patient Tolerance Good PT-OP-T Assessment and Plan Start: 01/15/19 11:28 Freq: Status: Active Protocol: Document 06/10/19 13:00 AMB (Rec: 06/10/19 16:08 AMB [email or web address]) Physical Therapy Assessment Assessment Summary Assessment Shamika had 30 degrees of ER today but it was painful to get there. Physical Therapy Plan Next Visit Focus/Plan Next Note Type Treatment Note Next Visit Plan Continue to work on ER
--- NOTE | 2019-06-18 15:02 | PT.OTN ---
Current Diagnoses Pain in left shoulder (06/18/19) Physical Therapy Treatment Note PT-OP-A Visit Information Start: 01/15/19 11:28 Freq: Status: Active Protocol: Document 06/18/19 13:45 AMB (Rec: 06/18/19 14:01 AMB [id number]) Out-Patient Physical Therapy Visit Information Visit Information Visit Type Treatment Note Visit Start Time 13:00 Visit Stop Time 13:45 Total Visit Minutes 45 Visit Number 32 PT-OP-B Current Condition Start: 01/15/19 11:28 Freq: Status: Active Protocol: Document 01/15/19 10:30 AMB (Rec: 01/15/19 15:48 AMB [email or web address]) Current Condition History of Current Condition Onset Date Oct 21 or Nov 22 Current Complaints Left shoulder pain History of Current Condition Shamika noted increased shoulder pain after lifting her mother up from the floor multiple times. She has been noticing increased pain since. 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 She has not been using a sling , but sometimes hooks her arm in her shirt becaue it feels better. Prior Treatments and Tests MRI on 12/08/18 showed mild supraspinatus tear, minimal partial tearing at mytendinous junction of infraspinatus, mild-moderate partial tear at inferiro glenohumeral ligament , and partial tearing at anteroinferior labrum. Prior Functional Status Baseline Function- ADL's Independent Baseline Function- Mobility Independent Current Functional Impairments (Reported) Functional Limitations- ADL's She finds upper body dressing and washing her hair painful. 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 Personal Factors Other Personal Factors That May Effect DMII Therapy/Recovery PT-OP-C Subjective Start: 01/15/19 11:28 Freq: Status: Active Protocol: Document 06/18/19 13:45 AMB (Rec: 06/18/19 14:01 AMB [id number]) OP-PT Subjective Patient Comments Patient Comments Pt notes the new stretch against the wall is a good stretch but is a bit much on her back. PT-OP-K Range of Motion Start: 01/15/19 11:28 Freq: Status: Active Protocol: Document 05/13/19 13:00 AMB (Rec: 05/14/19 15:42 AMB [email or web address]) Shoulder Goniometric Range of Motion Shoulder Left Passive Flexion 135 Abduction 100 External Rotation at 90 degrees 25 Abduction Internal Rotation 85 Left Active Flexion 130 Abduction 90 PT-OP-M Strength Start: 01/15/19 11:28 Freq: Status: Active Protocol: Document 01/15/19 10:30 AMB (Rec: 01/15/19 16:00 AMB [email or web address]) Shoulder Strength Shoulder Manual Muscle Testing Right Flexion 3- Fair- Extension 3+ Fair+ Abduction (C5) 2+ Poor+ External Rotation 3 Fair Internal Rotation 3 Fair PT-OP-Q Treatments Start: 01/15/19 11:28 Freq: Status: Active Protocol: Document 06/18/19 13:45 AMB (Rec: 06/18/19 15:01 AMB [email or web address]) Therapeutic Exercises Sitting Exercises 1 Sitting Exercise Name AROM Pulleys: scaption, abduction, IR behind back Reps/Minutes 8 min Standing Exercises 14 Standing Exercise Name ER stretch against corner Equipment Used towel roll at elbow Reps/Minutes 30x2 Comments v.c. for technique 13 Standing Exercise Name Table slider flexion stretch Reps/Minutes x 3 mins 11 Standing Exercise Name flexion and abduction wall stretch Reps/Minutes 10 Manual Therapy Treatment Joint Mobilizations 1 Joint L GH: post and inferior Grade III Body Position Hooklying Comments Joint mobilizations with passive ER/IR, Manual Techniques 3 Type contract relax Comments into ER/IR PT-OP-R Modalities Start: 01/15/19 11:28 Freq: Status: Active Protocol: Document 05/05/19 09:40 EA (Rec: 05/05/19 09:46 EA [id number]) Hot Pack/Cold Pack Treatment Cold Pack Location left shoulder Patient Position Hooklying Treatment Duration (minutes) 10 Patient Tolerance Good PT-OP-T Assessment and Plan Start: 01/15/19 11:28 Freq: Status: Active Protocol: Document 06/18/19 13:45 AMB (Rec: 06/18/19 15:01 AMB [email or web address]) Physical Therapy Assessment Assessment Summary Assessment 20 degrees of painfree ER, 29 degrees of passive ER going into pain. Reviewed and ammended stretches at home. Physical Therapy Plan Next Visit Focus/Plan Next Note Type Treatment Note Next Visit Plan Continue to work on ER
--- NOTE | 2019-06-25 16:05 | PT.OTN ---
Current Diagnoses Pain in left shoulder (06/25/19) Physical Therapy Treatment Note PT-OP-A Visit Information Start: 01/15/19 11:28 Freq: Status: Active Protocol: Document 06/25/19 13:45 AMB (Rec: 06/25/19 13:56 AMB [id number]) Out-Patient Physical Therapy Visit Information Visit Information Visit Type Treatment Note Visit Start Time 13:45 Visit Stop Time 14:30 Total Visit Minutes 45 Visit Number 33 PT-OP-B Current Condition Start: 01/15/19 11:28 Freq: Status: Active Protocol: Document 01/15/19 10:30 AMB (Rec: 01/15/19 15:48 AMB [email or web address]) Current Condition History of Current Condition Onset Date Oct 21 or Nov 22 Current Complaints Left shoulder pain History of Current Condition Shamika noted increased shoulder pain after lifting her mother up from the floor multiple times. She has been noticing increased pain since. 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 She has not been using a sling , but sometimes hooks her arm in her shirt becaue it feels better. Prior Treatments and Tests MRI on 12/08/18 showed mild supraspinatus tear, minimal partial tearing at mytendinous junction of infraspinatus, mild-moderate partial tear at inferiro glenohumeral ligament , and partial tearing at anteroinferior labrum. Prior Functional Status Baseline Function- ADL's Independent Baseline Function- Mobility Independent Current Functional Impairments (Reported) Functional Limitations- ADL's She finds upper body dressing and washing her hair painful. 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 Personal Factors Other Personal Factors That May Effect DMII Therapy/Recovery PT-OP-C Subjective Start: 01/15/19 11:28 Freq: Status: Active Protocol: Document 06/25/19 13:45 AMB (Rec: 06/25/19 13:56 AMB [id number]) OP-PT Subjective Patient Comments Patient Comments Pt does not remember being sore after last visit. PT-OP-K Range of Motion Start: 01/15/19 11:28 Freq: Status: Active Protocol: Document 05/13/19 13:00 AMB (Rec: 05/14/19 15:42 AMB [email or web address]) Shoulder Goniometric Range of Motion Shoulder Left Passive Flexion 135 Abduction 100 External Rotation at 90 degrees 25 Abduction Internal Rotation 85 Left Active Flexion 130 Abduction 90 PT-OP-M Strength Start: 01/15/19 11:28 Freq: Status: Active Protocol: Document 01/15/19 10:30 AMB (Rec: 01/15/19 16:00 AMB [email or web address]) Shoulder Strength Shoulder Manual Muscle Testing Right Flexion 3- Fair- Extension 3+ Fair+ Abduction (C5) 2+ Poor+ External Rotation 3 Fair Internal Rotation 3 Fair PT-OP-Q Treatments Start: 01/15/19 11:28 Freq: Status: Active Protocol: Document 06/25/19 13:45 AMB (Rec: 06/25/19 16:05 AMB [email or web address]) Therapeutic Exercises Sitting Exercises 1 Sitting Exercise Name AROM Pulleys: scaption, abduction, IR behind back Reps/Minutes 8 min Standing Exercises 14 Standing Exercise Name ER stretch against corner Equipment Used towel roll at elbow Reps/Minutes 30x2 Comments v.c. for technique 13 Standing Exercise Name Table slider flexion stretch Reps/Minutes x 3 mins 12 Standing Exercise Name shoulder ER/IR tband Resistance #2 Reps/Minutes 2x10 Manual Therapy Treatment Joint Mobilizations 1 Joint L GH: post and inferior Grade III Body Position Hooklying Comments Joint mobilizations with passive ER/IR, Manual Techniques 3 Type contract relax Comments into ER/IR PT-OP-R Modalities Start: 01/15/19 11:28 Freq: Status: Active Protocol: Document 05/05/19 09:40 EA (Rec: 05/05/19 09:46 EA [id number]) Hot Pack/Cold Pack Treatment Cold Pack Location left shoulder Patient Position Hooklying Treatment Duration (minutes) 10 Patient Tolerance Good PT-OP-T Assessment and Plan Start: 01/15/19 11:28 Freq: Status: Active Protocol: Document 06/25/19 13:45 AMB (Rec: 06/25/19 16:05 AMB [email or web address]) Physical Therapy Assessment Assessment Summary Assessment Shamika got to 27 degrees of ER today at 90 degrees of abduction. She is concerned she is platueaing. Physical Therapy Plan Next Visit Focus/Plan Next Note Type Treatment Note Next Visit Plan Continue to work on ER
--- NOTE | 2019-07-02 16:00 | PT.OTN ---
Current Diagnoses Pain in left shoulder (07/02/19) Physical Therapy Treatment Note PT-OP-A Visit Information Start: 01/15/19 11:28 Freq: Status: Active Protocol: Document 07/02/19 13:45 AMB (Rec: 07/02/19 13:48 AMB [id number]) Out-Patient Physical Therapy Visit Information Visit Information Visit Type Treatment Note Visit Start Time 13:45 Visit Stop Time 14:30 Total Visit Minutes 45 Visit Number 34 PT-OP-B Current Condition Start: 01/15/19 11:28 Freq: Status: Active Protocol: Document 01/15/19 10:30 AMB (Rec: 01/15/19 15:48 AMB [email or web address]) Current Condition History of Current Condition Onset Date Oct 21 or Nov 22 Current Complaints Left shoulder pain History of Current Condition Shamika noted increased shoulder pain after lifting her mother up from the floor multiple times. She has been noticing increased pain since. 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 She has not been using a sling , but sometimes hooks her arm in her shirt becaue it feels better. Prior Treatments and Tests MRI on 12/08/18 showed mild supraspinatus tear, minimal partial tearing at mytendinous junction of infraspinatus, mild-moderate partial tear at inferiro glenohumeral ligament , and partial tearing at anteroinferior labrum. Prior Functional Status Baseline Function- ADL's Independent Baseline Function- Mobility Independent Current Functional Impairments (Reported) Functional Limitations- ADL's She finds upper body dressing and washing her hair painful. 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 Personal Factors Other Personal Factors That May Effect DMII Therapy/Recovery PT-OP-C Subjective Start: 01/15/19 11:28 Freq: Status: Active Protocol: Document 07/02/19 13:45 AMB (Rec: 07/02/19 13:48 AMB [id number]) OP-PT Subjective Patient Comments Patient Comments Pt is doing well today. PT-OP-K Range of Motion Start: 01/15/19 11:28 Freq: Status: Active Protocol: Document 05/13/19 13:00 AMB (Rec: 05/14/19 15:42 AMB [email or web address]) Shoulder Goniometric Range of Motion Shoulder Left Passive Flexion 135 Abduction 100 External Rotation at 90 degrees 25 Abduction Internal Rotation 85 Left Active Flexion 130 Abduction 90 PT-OP-M Strength Start: 01/15/19 11:28 Freq: Status: Active Protocol: Document 01/15/19 10:30 AMB (Rec: 01/15/19 16:00 AMB [email or web address]) Shoulder Strength Shoulder Manual Muscle Testing Right Flexion 3- Fair- Extension 3+ Fair+ Abduction (C5) 2+ Poor+ External Rotation 3 Fair Internal Rotation 3 Fair PT-OP-Q Treatments Start: 01/15/19 11:28 Freq: Status: Active Protocol: Document 07/02/19 13:45 AMB (Rec: 07/04/19 10:46 AMB [email or web address]) Therapeutic Exercises Sitting Exercises 1 Sitting Exercise Name AROM Pulleys: scaption, abduction, IR behind back Reps/Minutes 8 min Standing Exercises 14 Standing Exercise Name ER stretch against corner Equipment Used towel roll at elbow Reps/Minutes 30x2 Comments v.c. for technique 13 Standing Exercise Name Table slider flexion stretch Reps/Minutes x 3 mins Manual Therapy Treatment Joint Mobilizations 1 Joint L GH: post and inferior Grade III Body Position Hooklying Comments Joint mobilizations with passive ER/IR, Manual Techniques 3 Type contract relax Comments into ER/IR PT-OP-R Modalities Start: 01/15/19 11:28 Freq: Status: Active Protocol: Document 05/05/19 09:40 EA (Rec: 05/05/19 09:46 EA [id number]) Hot Pack/Cold Pack Treatment Cold Pack Location left shoulder Patient Position Hooklying Treatment Duration (minutes) 10 Patient Tolerance Good PT-OP-T Assessment and Plan Start: 01/15/19 11:28 Freq: Status: Active Protocol: Document 07/02/19 13:45 AMB (Rec: 07/04/19 10:46 AMB [email or web address]) Physical Therapy Assessment Assessment Summary Assessment Shamika is improving in both flexion and abduction, but external rotation remains quite tight. Physical Therapy Plan Next Visit Focus/Plan Next Note Type Treatment Note Next Visit Plan Continue to work on ER
--- NOTE | 2019-07-09 14:44 | PT.OTN ---
Current Diagnoses Pain in left shoulder (07/09/19) Physical Therapy Treatment Note PT-OP-A Visit Information Start: 01/15/19 11:28 Freq: Status: Active Protocol: Document 07/09/19 13:45 AMB (Rec: 07/09/19 13:54 AMB [id number]) Out-Patient Physical Therapy Visit Information Visit Information Visit Type Treatment Note Visit Start Time 13:45 Visit Stop Time 14:30 Total Visit Minutes 45 Visit Number 35 PT-OP-B Current Condition Start: 01/15/19 11:28 Freq: Status: Active Protocol: Document 01/15/19 10:30 AMB (Rec: 01/15/19 15:48 AMB [email or web address]) Current Condition History of Current Condition Onset Date Oct 21 or Nov 22 Current Complaints Left shoulder pain History of Current Condition Shamika noted increased shoulder pain after lifting her mother up from the floor multiple times. She has been noticing increased pain since. 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 She has not been using a sling , but sometimes hooks her arm in her shirt becaue it feels better. Prior Treatments and Tests MRI on 12/08/18 showed mild supraspinatus tear, minimal partial tearing at mytendinous junction of infraspinatus, mild-moderate partial tear at inferiro glenohumeral ligament , and partial tearing at anteroinferior labrum. Prior Functional Status Baseline Function- ADL's Independent Baseline Function- Mobility Independent Current Functional Impairments (Reported) Functional Limitations- ADL's She finds upper body dressing and washing her hair painful. 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 Personal Factors Other Personal Factors That May Effect DMII Therapy/Recovery PT-OP-C Subjective Start: 01/15/19 11:28 Freq: Status: Active Protocol: Document 07/09/19 13:45 AMB (Rec: 07/09/19 13:54 AMB [id number]) OP-PT Subjective Patient Comments Patient Comments Pt tried to use her bow and didn't feel that her arm was strong enough to do it. PT-OP-K Range of Motion Start: 01/15/19 11:28 Freq: Status: Active Protocol: Document 05/13/19 13:00 AMB (Rec: 05/14/19 15:42 AMB [email or web address]) Shoulder Goniometric Range of Motion Shoulder Left Passive Flexion 135 Abduction 100 External Rotation at 90 degrees 25 Abduction Internal Rotation 85 Left Active Flexion 130 Abduction 90 PT-OP-M Strength Start: 01/15/19 11:28 Freq: Status: Active Protocol: Document 01/15/19 10:30 AMB (Rec: 01/15/19 16:00 AMB [email or web address]) Shoulder Strength Shoulder Manual Muscle Testing Right Flexion 3- Fair- Extension 3+ Fair+ Abduction (C5) 2+ Poor+ External Rotation 3 Fair Internal Rotation 3 Fair PT-OP-Q Treatments Start: 01/15/19 11:28 Freq: Status: Active Protocol: Document 07/09/19 13:45 AMB (Rec: 07/09/19 14:43 AMB [email or web address]) Therapeutic Exercises Sitting Exercises 1 Sitting Exercise Name AROM Pulleys: scaption, abduction, IR behind back Reps/Minutes 8 min Standing Exercises 13 Standing Exercise Name Table slider flexion stretch Reps/Minutes x 3 mins 12 Standing Exercise Name shoulder ER/IR tband Resistance #2 Reps/Minutes 2x10 11 Standing Exercise Name counter pushups Reps/Minutes 2x10 Manual Therapy Treatment Joint Mobilizations 1 Joint L GH: post and inferior Grade III Body Position Hooklying Comments Joint mobilizations with passive ER/IR, Manual Techniques 3 Type contract relax Comments into ER/IR PT-OP-R Modalities Start: 01/15/19 11:28 Freq: Status: Active Protocol: Document 05/05/19 09:40 EA (Rec: 05/05/19 09:46 EA [id number]) Hot Pack/Cold Pack Treatment Cold Pack Location left shoulder Patient Position Hooklying Treatment Duration (minutes) 10 Patient Tolerance Good PT-OP-T Assessment and Plan Start: 01/15/19 11:28 Freq: Status: Active Protocol: Document 07/09/19 13:45 AMB (Rec: 07/09/19 14:43 AMB [email or web address]) Physical Therapy Assessment Assessment Summary Assessment Got to 35 degrees of ER today. 153 degrees of flexion and 140 degrees of abduction. Will need to continue to practice archery to be able to improve strength. Physical Therapy Plan Next Visit Focus/Plan Next Note Type Treatment Note Next Visit Plan Continue to work on ER
--- NOTE | 2019-07-28 14:24 | PT.OPPOC ---
Current Diagnoses Pain in left shoulder (07/28/19) Visit Care Team Role Provider Type Cherelle Lopez DO Primary Care Provider Physician Specialty: [facility] Address: [address] [place] [address], [address], [place], [address] Email: [email or web address] CHELA Cisneros Attending Provider Advanced Script Worker Specialty: [facility] Address: [address] [place] [address] [address], [place], [address] Email: [email or web address] Plan Of Care PT-OP-T Assessment and Plan Start: 01/15/19 11:28 Freq: Status: Active Protocol: Document 07/28/19 13:45 AMB (Rec: 07/29/19 14:21 AMB [email or web address]) Physical Therapy Assessment Goals Three Impairment ADLs Short Term Goal (STG) Shamika will perform all upper body dressing with 2/10 pain or less. STG Duration MET Insurance Instructor Goal (LTG) Shamika will wash her hair with her left arm without an increase in pain. PARTIALLY MET, 1-2/10 pain with washing hair. LTG Duration 8 weeks Two Impairment Strength Short Term Goal (STG) Shamika will lift a 10# box from the floor to shoulder height with good body mechanics without an increase in baseline pain. STG Duration MET Half-Way Goal (LTG) Shamika will be independent and consistent with a HEP for ROM and strengthening. . LTG Duration 8 weeks One Impairment MET Short Term Goal (STG) Shamika will increase her PROM to 120 degrees of flexion and abduction. STG Duration MET Half-Way Goal (LTG) Shamika will increase her AROM to 120 degress of flexion and abduction. PARTIALLY MET- PROM LTG Duration 8 weeks Assessment Summary Assessment Shamika is continuing to improve in her range of motion and strength. But progress has been slow lately. She agrees that she has plenty of exercises to keep her busy, so we will see her a few more times to finalize her HEP but then will plan on discharging her to her HEP. 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 Some days she does continue to have pain especially at end range. Abduction and external rotation remain the most limited. Physical Therapy Plan Frequency and Duration Frequency of Treatment 1x/Week Duration of Treatment 3 weeks Plan of Care Start Date 07/28/19 Plan of Care End Date 08/18/19 Therapeutic Interventions Therapeutic Interventions Aquatic Therapy,Home Exercise Program,Joint Mobilizations, Manual Therapy,Neuromuscular Re-education,Self-Care/Home Management,Soft Tissue Mobilization,Taping, Therapeutic Activities, Therapeutic Exercises Modalities Cold Pack/Ice Massage,Electric Stimulation,Hot Packs, Ultrasound Next Visit Focus/Plan Next Note Type Treatment Note Next Visit Plan Continue to work on ER, progress ROM Plan of Care Dates Plan of Care Start Date 07/28/19 Plan of Care End Date 08/18/19
--- NOTE | 2019-07-29 14:23 | PT.OTN ---
Current Diagnoses Pain in left shoulder (07/28/19) Physical Therapy Treatment Note PT-OP-A Visit Information Start: 01/15/19 11:28 Freq: Status: Active Protocol: Document 07/28/19 13:45 AMB (Rec: 07/28/19 13:54 AMB [id number]) Out-Patient Physical Therapy Visit Information Visit Information Visit Type Treatment Note Visit Start Time 13:45 Visit Stop Time 14:30 Total Visit Minutes 45 Visit Number 36 PT-OP-B Current Condition Start: 01/15/19 11:28 Freq: Status: Active Protocol: Document 01/15/19 10:30 AMB (Rec: 01/15/19 15:48 AMB [email or web address]) Current Condition History of Current Condition Onset Date Oct 21 or Nov 22 Current Complaints Left shoulder pain History of Current Condition Shamika noted increased shoulder pain after lifting her mother up from the floor multiple times. She has been noticing increased pain since. 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 She has not been using a sling , but sometimes hooks her arm in her shirt becaue it feels better. Prior Treatments and Tests MRI on 12/08/18 showed mild supraspinatus tear, minimal partial tearing at mytendinous junction of infraspinatus, mild-moderate partial tear at inferiro glenohumeral ligament , and partial tearing at anteroinferior labrum. Prior Functional Status Baseline Function- ADL's Independent Baseline Function- Mobility Independent Current Functional Impairments (Reported) Functional Limitations- ADL's She finds upper body dressing and washing her hair painful. 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 Personal Factors Other Personal Factors That May Effect DMII Therapy/Recovery PT-OP-C Subjective Start: 01/15/19 11:28 Freq: Status: Active Protocol: Document 07/28/19 13:45 AMB (Rec: 07/28/19 13:54 AMB [id number]) OP-PT Subjective Patient Comments Patient Comments 4/10 pain at worst, 0/10 at rest. PT-OP-K Range of Motion Start: 01/15/19 11:28 Freq: Status: Active Protocol: Document 07/28/19 13:45 AMB (Rec: 07/29/19 14:21 AMB [email or web address]) Shoulder Goniometric Range of Motion Shoulder Left Passive Testing Position Supine Flexion 153 Abduction 132 External Rotation at 90 degrees 35 Abduction PT-OP-M Strength Start: 01/15/19 11:28 Freq: Status: Active Protocol: Document 01/15/19 10:30 AMB (Rec: 01/15/19 16:00 AMB [email or web address]) Shoulder Strength Shoulder Manual Muscle Testing Right Flexion 3- Fair- Extension 3+ Fair+ Abduction (C5) 2+ Poor+ External Rotation 3 Fair Internal Rotation 3 Fair PT-OP-Q Treatments Start: 01/15/19 11:28 Freq: Status: Active Protocol: Document 07/28/19 13:45 AMB (Rec: 07/29/19 14:21 AMB [email or web address]) Therapeutic Exercises Sitting Exercises 1 Sitting Exercise Name AROM Pulleys: scaption, abduction, IR behind back Reps/Minutes 8 min Standing Exercises 12 Standing Exercise Name shoulder ER/IR tband Resistance #2 Reps/Minutes 2x10 10 Standing Exercise Name flexion and abduction t band Resistance #3 tband Reps/Minutes 2x10 Manual Therapy Treatment Joint Mobilizations 1 Joint L GH: post and inferior Grade III Body Position Hooklying Comments Joint mobilizations with passive ER/IR, Manual Techniques 3 Type contract relax Comments into ER/IR PT-OP-R Modalities Start: 01/15/19 11:28 Freq: Status: Active Protocol: Document 05/05/19 09:40 EA (Rec: 05/05/19 09:46 EA [id number]) Hot Pack/Cold Pack Treatment Cold Pack Location left shoulder Patient Position Hooklying Treatment Duration (minutes) 10 Patient Tolerance Good PT-OP-T Assessment and Plan Start: 01/15/19 11:28 Freq: Status: Active Protocol: Document 07/28/19 13:45 AMB (Rec: 07/29/19 14:21 AMB [email or web address]) Physical Therapy Assessment Goals Three Impairment ADLs Short Term Goal (STG) Shamika will perform all upper body dressing with 2/10 pain or less. STG Duration MET Shelter Goal (LTG) Shamika will wash her hair with her left arm without an increase in pain. PARTIALLY MET, 1-2/10 pain with washing hair. LTG Duration 8 weeks Two Impairment Strength Short Term Goal (STG) Shamika will lift a 10# box from the floor to shoulder height with good body mechanics without an increase in baseline pain. STG Duration MET Form Drafter Goal (LTG) Shamika will be independent and consistent with a HEP for ROM and strengthening. . LTG Duration 8 weeks One Impairment MET Short Term Goal (STG) Shamika will increase her PROM to 120 degrees of flexion and abduction. STG Duration MET Shelter Goal (LTG) Shamika will increase her AROM to 120 degress of flexion and abduction. PARTIALLY MET- PROM LTG Duration 8 weeks Assessment Summary Assessment Shamika is continuing to improve in her range of motion and strength. But progress has been slow lately. She agrees that she has plenty of exercises to keep her busy, so we will see her a few more times to finalize her HEP but then will plan on discharging her to her HEP. 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 Some days she does continue to have pain especially at end range. Abduction and external rotation remain the most limited. Physical Therapy Plan Frequency and Duration Frequency of Treatment 1x/Week Duration of Treatment 3 weeks Plan of Care Start Date 07/28/19 Plan of Care End Date 08/18/19 Therapeutic Interventions Therapeutic Interventions Aquatic Therapy,Home Exercise Program,Joint Mobilizations, Manual Therapy,Neuromuscular Re-education,Self-Care/Home Management,Soft Tissue Mobilization,Taping, Therapeutic Activities, Therapeutic Exercises Modalities Cold Pack/Ice Massage,Electric Stimulation,Hot Packs, Ultrasound Next Visit Focus/Plan Next Note Type Treatment Note Next Visit Plan Continue to work on ER, progress ROM
--- NOTE | 2019-08-03 14:59 | PT.OTN ---
Current Diagnoses Pain in left shoulder (08/03/19) Physical Therapy Treatment Note PT-OP-A Visit Information Start: 01/15/19 11:28 Freq: Status: Active Protocol: Document 08/03/19 13:00 AMB (Rec: 08/03/19 13:34 AMB [id number]) Out-Patient Physical Therapy Visit Information Visit Information Visit Type Treatment Note Visit Start Time 13:00 Visit Stop Time 13:45 Total Visit Minutes 45 Visit Number 37 PT-OP-B Current Condition Start: 01/15/19 11:28 Freq: Status: Active Protocol: Document 01/15/19 10:30 AMB (Rec: 01/15/19 15:48 AMB [email or web address]) Current Condition History of Current Condition Onset Date Oct 21 or Nov 22 Current Complaints Left shoulder pain History of Current Condition Shamika noted increased shoulder pain after lifting her mother up from the floor multiple times. She has been noticing increased pain since. 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 She has not been using a sling , but sometimes hooks her arm in her shirt becaue it feels better. Prior Treatments and Tests MRI on 12/08/18 showed mild supraspinatus tear, minimal partial tearing at mytendinous junction of infraspinatus, mild-moderate partial tear at inferiro glenohumeral ligament , and partial tearing at anteroinferior labrum. Prior Functional Status Baseline Function- ADL's Independent Baseline Function- Mobility Independent Current Functional Impairments (Reported) Functional Limitations- ADL's She finds upper body dressing and washing her hair painful. 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 Personal Factors Other Personal Factors That May Effect DMII Therapy/Recovery PT-OP-C Subjective Start: 01/15/19 11:28 Freq: Status: Active Protocol: Document 08/03/19 13:00 AMB (Rec: 08/03/19 13:34 AMB [id number]) OP-PT Subjective Patient Comments Patient Comments Tried to use 20# bow and was able to pull it to cheek but not to ear Patient Questionnaires Quick Dash- Upper Extremity Quick Dash UE Score 11 Quick Dash UE Impairment 1 to 19% Impaired (Score 1-19) PT-OP-K Range of Motion Start: 01/15/19 11:28 Freq: Status: Active Protocol: Document 07/28/19 13:45 AMB (Rec: 07/29/19 14:21 AMB [email or web address]) Shoulder Goniometric Range of Motion Shoulder Left Passive Testing Position Supine Flexion 153 Abduction 132 External Rotation at 90 degrees 35 Abduction PT-OP-M Strength Start: 01/15/19 11:28 Freq: Status: Active Protocol: Document 08/03/19 13:00 AMB (Rec: 08/03/19 14:59 AMB [email or web address]) Shoulder Strength Shoulder Manual Muscle Testing Left Flexion 4 Good Extension 4+ Good+ Abduction (C5) 4- Good- External Rotation 4- Good- Internal Rotation 4 Good PT-OP-Q Treatments Start: 01/15/19 11:28 Freq: Status: Active Protocol: Document 08/03/19 13:00 AMB (Rec: 08/03/19 14:50 AMB [id number]) Therapeutic Exercises Supine Exercises 5 Supine Exercise Name shoulder flexion Reps/Minutes 10 Sidelying Exercises 4 Sidelying Exercise Name shoulder abd Resistance 2x10 Reps/Minutes 2# Sitting Exercises 1 Sitting Exercise Name AROM Pulleys: scaption, abduction, IR behind back Reps/Minutes 8 min Standing Exercises 12 Standing Exercise Name shoulder ER/IR tband Resistance #2 Reps/Minutes 2x10 11 Standing Exercise Name PNF D2 flexion Resistance #1 tband Reps/Minutes 10 10 Standing Exercise Name flexion and abduction t band Resistance #3 tband Reps/Minutes 2x10 Manual Therapy Treatment Joint Mobilizations 1 Joint L GH: post and inferior Grade III Body Position Hooklying Comments Joint mobilizations with passive ER/IR, PT-OP-R Modalities Start: 01/15/19 11:28 Freq: Status: Active Protocol: Document 05/05/19 09:40 EA (Rec: 05/05/19 09:46 EA [id number]) Hot Pack/Cold Pack Treatment Cold Pack Location left shoulder Patient Position Hooklying Treatment Duration (minutes) 10 Patient Tolerance Good PT-OP-T Assessment and Plan Start: 01/15/19 11:28 Freq: Status: Active Protocol: Document 08/03/19 13:00 AMB (Rec: 08/03/19 13:25 AMB [id number]) Physical Therapy Assessment Goals Three Impairment ADLs Short Term Goal (STG) Shamika will perform all upper body dressing with 2/10 pain or less. STG Duration MET Beater Lead Goal (LTG) Shamika will wash her hair with her left arm without an increase in pain. LTG Duration MET Two Impairment Strength Short Term Goal (STG) Shamika will lift a 10# box from the floor to shoulder height with good body mechanics without an increase in baseline pain. STG Duration MET Detention Goal (LTG) Shamika will be independent and consistent with a HEP for ROM and strengthening. . LTG Duration MET One Impairment MET Short Term Goal (STG) Shamika will increase her PROM to 120 degrees of flexion and abduction. STG Duration MET Beater Lead Goal (LTG) Shamika will increase her AROM to 120 degrees of flexion and abduction. PROM LTG Duration met Assessment Summary Assessment Shamika has improved significantly over her time in physical therapy. Her pain has reduced to 0/10 at rest, and she reports that she can do all of her work (reaching/ lifting/pushing) without pain. She does get pain when she sleeps on the shoulder wrong, which does happen intermittently. She continues to have weakness especially with abduction and external rotation, and continues to be limited in those ranges of motion as well. Overall she feels she is ready to continue on her own at this point, and then will follow up with her MD in about 6 months if the shoulder is not improving on its own. Physical Therapy Plan Discharge Physical Therapy Discharge Reasons Goals Met
== END 2019-09-18 13:05 ==
LOC: PHYS 13:00
PROVIDERS: PCP Family Medicine; Visit Provider Nurse Practitioner Family
DX: M25.512 Pain in left shoulder (principal)
CPT/HCPCS: 97010; 97014; 97110; 97140; 97162; G0283

== ENCOUNTER → 2020-01-04 07:31 | Outpatient (CLI) | payer OTHER, SELFPAY ==
[2020-01-04 08:05] LABS: Add Manual Diff / Slide Review NO; Basophils Absolute Auto 100 /uL (0-100); Basophils Percent Auto 0.9 % (0-2); Eosinophils Absolute Auto 500 /uL (0-450); Eosinophils Percent Auto 7.4 % (2-4); Hematocrit 44.3 % (36-46); Hemoglobin 14.5 g/dL (12.0-16.0); Lymphocytes Absolute Auto 1500 /uL (1100-4500); Lymphocytes Percent Auto 24.9 % (25-40); Mean Corpuscular HGB Conc 32.8 % (30-36); Mean Corpuscular Hemoglobin 28.2 PG (26-34); Mean Corpuscular Volume 85.9 fL (80-100); Monocytes Absolute Auto 500 /uL (0-900); Monocytes Percent Auto 7.7 % (3-14); Neutrophils Absolute Auto 3700 /uL (1500-7000); Neutrophils Percent Auto 59.1 % (50-75); Platelet Count 340 X10^3/uL (150-400); Red Blood Cell Count 5.16 X10^6/uL (4.0-5.2); Red Cell Distribution Width 13.8 % (11.6-14.8); White Blood Cell Count 6.2 X10^3/uL (4.5-11.0)
[2020-01-04 08:19] LABS: Hemoglobin A1C% w Est Avg Glu 6.8 % (4.0-6.0)
[2020-01-04 08:33] LABS: Alanine Aminotransferase 18 IU/L (<35); Albumin 4.5 g/dL (3.5-5.0); Albumin Globulin Ratio 1.3 (1.0-2.8); Alkaline Phosphatase 72 U/L (38-126); Aspartate Aminotransferase 24 IU/L (14-36); Bilirubin Total 0.5 mg/dL (0.2-1.3); Blood Urea Nitrogen 19 mg/dL (7-17); Calcium 9.5 mg/dL (8.4-10.2); Carbon Dioxide 29 mmol/L (22-32); Chloride 104 mmol/L (98-107); Cholesterol 156 mg/dL (140-199); Estimated Glomerular Filt Rate 58.5 mL/min (>60); Globulin 3.5 g/dL (1.7-4.1); Glucose 108 mg/dL (70-100); HDL Cholesterol 51 mg/dL (40-60); HEMOLYSIS < 15 (0-50); LDL Cholesterol Calculated 76 mg/dL (<100); Potassium 4.1 mmol/L (3.4-5.1); Sodium 143 mmol/L (137-145); Triglycerides 144 mg/dL (35-150)
[2020-01-04 09:04] LABS: Thyroid Stimulating Hormone 0.85 uIU/mL (0.47-4.68)
[2020-01-04 10:33] LABS: Creatinine Urine Random 116.4 mg/dL
[2020-01-04 10:39] LABS: Microalbumi Creatinin Ratio Ur 5.1 ug/mg CR (<30); Microalbumin Urine Random < 0.6 mg/dL (0-1.6)
== END ==
PROVIDERS: PCP Family Medicine; Referring Provider Family Medicine; Visit Provider Family Medicine
DX: E11.9 Type 2 diabetes mellitus without complications (principal); I10 Essential (primary) hypertension; E78.2 Mixed hyperlipidemia
CPT/HCPCS: 36415; 80053; 80061; 82043; 82570; 83036; 84443; 85025

== ENCOUNTER → 2020-02-19 08:26 | Outpatient (CLI) | payer OTHER, SELFPAY ==
[2020-02-19 09:51] LABS: BUN Creatinine Ratio 22.5 (6-22); Blood Urea Nitrogen 20 mg/dL (7-17); Estimated Glomerular Filt Rate > 60.0 mL/min (>60)
== END ==
PROVIDERS: Referring Provider Nurse Practitioner Family; Visit Provider Nurse Practitioner Family
DX: R94.4 Abnormal results of kidney function studies (principal)
CPT/HCPCS: 36415; 82565; 84520

== ENCOUNTER → 2020-04-20 09:15 | Outpatient (CLI) | payer OTHER, SELFPAY ==
--- NOTE | 2020-04-20 09:16 | DI.MG.S_ITS ---
BILATERAL DIGITAL SCREENING MAMMOGRAM 3D/2D WITH CAD: 04/20/2020 CLINICAL: Routine screening. Comparison is made to exams dated: 02/04/2019 mammogram, 02/03/2018 mammogram, and 02/22/2017 mammogram - [facility]. There are scattered fibroglandular elements in both breasts. Current study was also evaluated with a Computer Aided Detection (CAD) system. There are benign calcifications in the right breast. No significant masses, calcifications, or other findings are seen in either breast. There has been no significant interval change. IMPRESSION: There is no mammographic evidence of malignancy. A 1 year screening mammogram is recommended. This exam was interpreted at Station ID: [id number]. NOTE: For mammograms, a report in lay terms will be sent to the patient. Approximately 15% of breast malignancies will not be visualized mammographically. In the management of a palpable breast mass, a negative mammogram must not discourage biopsy of a clinically suspicious lesion. Electronically Signed By: Haydee trejo/rodrigo:04/20/2020 09:36:53 letter sent: Normal Exam ACR BI-RADS Category 2: Benign Finding(s) 3342F
== END ==
PROVIDERS: PCP Nurse Practitioner Family; Referring Provider Nurse Practitioner Family; Visit Provider Nurse Practitioner Family
DX: Z12.31 Encounter for screening mammogram for malignant neoplasm of breast (principal)
CPT/HCPCS: 77063; 77067

== ENCOUNTER → 2020-05-23 15:21 | Outpatient (CLI) | payer OTHER, SELFPAY ==
[2020-05-25 06:49] LABS: COVID19 Sendout Not Detected (Not Detect)
== END ==
PROVIDERS: PCP Nurse Practitioner Family; Visit Provider Nurse Practitioner
DX: Z01.812 Encounter for preprocedural laboratory examination (principal)
CPT/HCPCS: 87635

== ENCOUNTER 2020-05-26 14:14 | Day surgery (SDC) | payer OTHER, SELFPAY ==
[2020-05-26] VITALS (7 sets, daily range): BP systolic 99–124; BP diastolic 67–86; PULSE 81–90; RESP 12–17; TEMP 35.8–36.6; O2SAT 96–99; BMI 54.8
[2020-05-26] MEDS: LACTATED RINGERS 1,000 ML 200 ML IV (14:26)
--- NOTE | 2020-05-26 14:41 | PM.HP.1 ---
History of Present Illness History of Present Illness Date Patient Seen: 05/26/20 Time Patient Seen: 14:41 Chief complaint: [id number] Narrative: The patient presents for colorectal sreening. They have never had any previous examination for such. No personal or family history of colon cancer. On further history denies any recent gastrointestinal symptoms. No nausea, vomiting, abdominal pain, loss of appetite, unexplained weight loss, change in bowel habits, diarrhea, constipation, melena, hematochezia, or bright red blood per rectum. Patient History Medical History Decreased GFR (Acute 01/2020) Diabetes (Chronic 2014) Hyperlipemia (Chronic Unknown) Hypertension (Chronic Unknown) Shingles (Chronic Unknown) Family & Social History Tobacco & Substance use: Smoking Status Never smoker alcohol intake current Meds Home Medications and Allergies Home Medications Medication Instructions Recorded Confirmed Type multivitamin [Multiple Vitamins] 1 tab PO QDAY #0 06/05/17 01/07/20 History aspirin 81 mg tablet,delayed 81 mg PO .QOD #0 tab 01/07/20 01/07/20 History release meclizine 25 mg tablet 25 mg PO TID PRN tab 01/07/20 History metformin 500 mg tablet 500 mg PO BID #180 tab 01/25/20 Rx simvastatin 20 mg tablet 20 mg PO HS #90 tab 01/25/20 Rx Glucose: Test Strips #100 each 03/30/20 Rx Allergies Allergy/AdvReac Type Severity Reaction Status Date / Time No Known Allergies Allergy Uncoded 05/26/20 14:40 Review of Systems Review of Systems Narrative: A 10 point review of systems is negative except as noted in the HPI Exam Narrative Exam Narrative: General-no acute distress, well nourished adult wound HEENT-moist mucous membranes, no scleral icterus Neck-supple, no lymphadenopathy Chest- non labored respirations, clear to auscultation bilaterally Cardiac-regular rate no peripheral edema Abdomen-soft, nontender, non distended Extremities-warm, well perfused Neurological-alert and oriented, no focal deficits Assessment & Plan Assessment and plan (1) Screening for colon cancer: Status: Acute Assessment & Plan narrative: The patient requires colorectal screening and colonoscopy is recommended. Technical details were discussed. Risks, benefits, alternatives explained. Risks including but not limited to myocardial infarction, aspiration, bleeding, pain, missed lesion, incomplete examination, need for further radiographic studies, colonic perforation, and need for major abdominal surgery were discussed. All questions were answered to their satisfaction, and they are in agreement with this plan. COVID-19 COVID-19 status: Negative
--- NOTE | 2020-05-26 15:18 | P.OP.ENDO_ITS ---
Operative Date/Time/Diagnoses Date of procedure: 05/26/20 Time of procedure: 15:18 Pre-op diagnosis: Screening colonoscopy Post-op diagnosis: same Procedure & Clinicians Study performed: Colonoscopy Same procedure as scheduled: Yes Indications: 50-year-old woman with no prior colonoscopy presents for routine screening Surgeon: Jude Alfaro Procedure Notes SCOAP/Timeout: Performed Procedure in detail: Patient placed in left lateral decubitus position. Time out was performed. Procedural sedation was administered with Versed and Fentanyl. A rectal exam demonstrated no external hemorrhoids no internal masses. Colon oscopy scope was placed into the rectum and advanced through the colon to the cecum. The ileocecal valve was identified, the ileum was intubated. The scope was then slowly withdrawn examining colon thoroughly in all directions. The colonoscopy was notable for the following 1. Sigmoid diverticulosis 2. No masses or polyps 3. Quality of prep excellent Scope withdrawal time: 7 Sedation minutes: 18 Findings: diverticulosis Specimen(s): none sent Complications: none Impression: Diverticulosis Post-procedure Recommendations: Colonscopy in 10 years Disposition: same day surgery
[2020-05-26] MEDS: MIDAZOLAM 5 MG/5 ML VIAL IV (15:19)
[2020-05-26] MEDS: fentaNYL 250 MCG/5 ML INJ IV (15:20)
== END 2020-05-26 16:16 | disposition home or self-care (01) ==
PROVIDERS: PCP Nurse Practitioner Family; Referring Provider Surgery; Visit Provider Surgery
PROC: 0DJD8ZZ Inspection of Lower Intestinal Tract, Via Natural or Artificial Opening Endoscopic (ICD-10-PCS; CPT 45378; principal; 2020-05-26 15:15)
DX: Z12.11 Encounter for screening for malignant neoplasm of colon (principal); K57.30 Diverticulosis of large intestine without perforation or abscess without bleeding; E11.9 Type 2 diabetes mellitus without complications; E78.5 Hyperlipidemia, unspecified; I10 Essential (primary) hypertension
CPT/HCPCS: G0121; 99152; J2250; J3010

== ENCOUNTER → 2020-07-04 07:16 | Outpatient (CLI) | payer OTHER, SELFPAY ==
[2020-07-04 07:48] LABS: Hematocrit 43.6 % (36-46); Hemoglobin 14.5 g/dL (12.0-16.0); Mean Corpuscular HGB Conc 33.3 % (30-36); Mean Corpuscular Hemoglobin 28.7 PG (26-34); Mean Corpuscular Volume 86.2 fL (80-100); Platelet Count 319 X10^3/uL (150-400); Red Blood Cell Count 5.06 X10^6/uL (4.0-5.2); Red Cell Distribution Width 13.9 % (11.6-14.8); White Blood Cell Count 7.5 X10^3/uL (4.5-11.0)
[2020-07-04 08:00] LABS: Cholesterol 163 mg/dL (140-199); HDL Cholesterol 52 mg/dL (40-60); LDL Cholesterol Calculated 73 mg/dL (<100); Triglycerides 189 mg/dL (35-150)
[2020-07-04 08:02] LABS: Hemoglobin A1C% w Est Avg Glu 7.6 % (4.0-6.0)
== END ==
PROVIDERS: PCP Nurse Practitioner Family; Referring Provider Nurse Practitioner Family; Visit Provider Nurse Practitioner Family
DX: E11.9 Type 2 diabetes mellitus without complications (principal); E78.2 Mixed hyperlipidemia
CPT/HCPCS: 36415; 80061; 83036; 85027

== ENCOUNTER → 2020-08-29 10:53 | Outpatient (CLI) | payer OTHER, SELFPAY ==
--- NOTE | 2020-08-29 12:08 | DIET.PN ---
Diabetes Intake: Initial Assessment Assess: Ms. Younger is a 50 YOF referred for type 2 diabetes. She has had diabetes for approx. 5 yrs with recent increase in A1c. Reports strong family hx including both brother, mother, and 2 grandmothers. She admits to an increase in fast food intake since the pandemic as well as decrease in produce. She monitors her fasting glucose daily and walks to work for exercise. Labs: Per pt report: A1c: 7.6 Meds: metformin 1000mg am, 500mg pm Diet: per 24 hr recall: B: breakfast sandwich; bowel of cereal; scrambled eggs w/ toast or hashbrowns L: ham sandwich w/ potato chips, regular soda D: tv dinner; chicken breast w/ pasta; [place] food; tacos Wt: 164lb Ht: 68in BMI: 25 BP: 130/84 DX: Altered nutrition related laboratory values related to impaired glucose metabolism, lack of previous exposure to nutrition information as evidenced by pt report, diagnosis of diabetes, previous diet high in refined carbohydrates. Intervention: 1. Completed intake assessment. Discussed barriers to care. 2. Discussed pathophysiology of diabetes. Reviewed A1c and its correlation to blood glucose numbers. Discussed recommended BG ranges. 3. Discussed importance of self-monitoring, how often, and when to check. Provided demonstration on use of glucometer. 4. Reviewed hyper/hypoglycemia and treatment. 5. Reviewed safe disposal of equipment (strip/lancets/insulin needles). 6. Created SMART goals for pt self-care and success. 7. Discussed program curriculum outline and class needs based on individual goals. SMART Goals: 1. Patient would like to lower A1c to 7.0 in 3 mo by checking blood sugar 2 times/day including fasting and alternating 2 hr PP mealtimes. 2. Patient would like to lower A1c by reducing portions of starchy foods as well increase variety of non-starchy vegetables. Monitor/Evaluate: Anticipate excellent compliance. Pt will attend full DSME program. Basic Nutrition class scheduled for Sep 06.
== END ==
PROVIDERS: PCP Nurse Practitioner Family; Referring Provider Nurse Practitioner Family; Visit Provider Nurse Practitioner Family
DX: E11.9 Type 2 diabetes mellitus without complications (principal); Z79.84 Long term (current) use of oral hypoglycemic drugs; Z71.3 Dietary counseling and surveillance
CPT/HCPCS: G0108

== ENCOUNTER → 2020-09-06 14:29 | Outpatient (CLI) | payer OTHER, SELFPAY ==
--- NOTE | 2020-09-06 15:53 | DIET.PN ---
Diabetes: Healthy Eating 1 Intervention: ? Discussed pathophysiology of diabetes and impact of nutrition/diet on blood sugar control.? Discussed fed versus non-fed state.?? ? Reviewed importance of Balance, Variety, and Moderation. ? Discussed the effect of carbohydrates/protein/fat on blood sugar control.? ? Stressed importance of consistent carbohydrate intake at each meal and provided instructions for recommended servings/portions of carbohydrates/protein per meal. Provided educational material. ? Reviewed carbohydrate counting and measuring carbohydrate content via serving sizes and reading nutrition labels.? Provided handouts.?? ? Discussed the difference between simple versus complex carbohydrates and the effect of fiber on blood sugar control.? Discussed various methods to increase fiber content in diet. ? Discussed the plate method for creating more carbohydrate conscious balanced meals. ? Stressed importance of meal timing and not going >4-5 hours between meals. Encouraged adding protein to evening snack to support glucose control overnight. ? Discussed importance of making dietary habits part of lifestyle change.
== END ==
PROVIDERS: PCP Nurse Practitioner Family; Referring Provider Nurse Practitioner Family; Visit Provider Nurse Practitioner Family
DX: E11.9 Type 2 diabetes mellitus without complications (principal); Z71.3 Dietary counseling and surveillance
CPT/HCPCS: G0109

== ENCOUNTER → 2020-09-15 14:10 | Outpatient (CLI) | payer OTHER, SELFPAY ==
--- NOTE | 2020-09-15 16:05 | DIET.PN ---
Diabetes: Healthy Eating 2 Intervention: Fats effects on glucose, weight, heart disease, cholesterol Sat Vs Unsat Protein- animal and plant based options Low, med, high fat meats Sugar substitutes Sodium Health claims Grocery shopping guidelines Eating away from home Alcohol Sick day guidelines Ketone Testing
== END ==
PROVIDERS: PCP Nurse Practitioner Family; Referring Provider Nurse Practitioner Family; Visit Provider Nurse Practitioner Family
DX: E11.9 Type 2 diabetes mellitus without complications (principal); Z71.3 Dietary counseling and surveillance
CPT/HCPCS: G0109

== ENCOUNTER → 2020-09-21 13:49 | Outpatient (CLI) | payer OTHER, SELFPAY ==
[2020-09-21 14:44] VITALS: BMI 24.4
--- NOTE | 2020-09-21 14:44 | DIET.PN ---
DIABETES Nutrition Initial Assessment:? ASSESS:?? Ms. Younger is a 50 yo?referred for type 2 diabetes seen as part of DSME program. She has been monitoring her fasting blood sugar daily. She is happy to report she has been able to completely cut out soda and has been eating more non-starchy vegetables to replace chips. ??? LABS: Per pt report:? FB-120 ? MEDS:?? metformin 1000mg am, 500mg pm ? DIET: Per 24-hour recall:? dropped hashbrowns and regular soda, reading labels more, increased produce intake Eating Out: 1x/week Changes in Appetite: no change Nutrition Supplements: cinnamon, calcium w/ vitamin D ? Weight: 161lb Height: 68in BMI: ? 24.5 ? Exercise:? 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 Altered Nutrition related labs related to impaired glucose metabolism, lack of previous exposure to accurate nutrition information as evidenced by pt report, dx of diabetes, previous diet high in refined carbohydrates.? INTERVENTION(s): 1. Reviewed pathophysiology of diabetes and impact of nutrition/diet on blood sugar control.? Discussed fed versus non-fed state.?? 2. Discussed the effect of carbohydrates/protein/fat on blood sugar control.? Stressed importance of consistent carbohydrate intake at each meal and provided instructions for recommended servings/portions of carbohydrates/protein per meal. Provided pt with educational material. 3. Reviewed carbohydrate counting and measuring carbohydrate content via serving sizes and reading nutrition labels.? Provided handouts.?? 4. Discussed the difference between simple versus complex carbohydrates and the effect of fiber on blood sugar control.? Discussed various methods to increase fiber content in diet. 5. Stressed importance of meal timing and not going >4-5 hours between meals. Encouraged adding protein to evening snack to support glucose control overnight. Patient agreeable. 6. Discussed healthy weight loss goals of 1-2lbs per week through diet and exercise.? Pt agreeable to walking at least 30 minutes daily. 7. Recommend monitoring fasting and alternating 2 hr PP mealtime glucose. MONITOR/EVALUATE: Anticipate good compliance.? Nutrition follow-up scheduled for 1 month.
== END ==
PROVIDERS: PCP Nurse Practitioner Family; Referring Provider Nurse Practitioner Family; Visit Provider Nurse Practitioner Family
DX: E11.9 Type 2 diabetes mellitus without complications (principal); Z79.84 Long term (current) use of oral hypoglycemic drugs; Z71.3 Dietary counseling and surveillance
CPT/HCPCS: G0109

== ENCOUNTER → 2020-10-03 07:13 | Outpatient (CLI) | payer OTHER, SELFPAY ==
[2020-10-03 08:23] LABS: Hemoglobin A1C% w Est Avg Glu 7.1 % (4.0-6.0)
[2020-10-03 08:33] LABS: BUN Creatinine Ratio 21.7 (6-22); Blood Urea Nitrogen 20 mg/dL (7-17); Calcium 9.7 mg/dL (8.4-10.2); Carbon Dioxide 30 mmol/L (22-32); Chloride 102 mmol/L (98-107); Estimated Glomerular Filt Rate > 60.0 mL/min (>60); Glucose 121 mg/dL (70-100); HEMOLYSIS < 15 (0-50); Potassium 4.9 mmol/L (3.4-5.1); Sodium 138 mmol/L (137-145)
[2020-10-03 08:36] LABS: Microalbumin Urine Random 0.7 mg/dL (0-1.6)
[2020-10-03 08:40] LABS: Creatinine Urine Random 142.3 mg/dL; Microalbumi Creatinin Ratio Ur 4.9 ug/mg CR (<30)
== END ==
PROVIDERS: PCP Nurse Practitioner Family; Referring Provider Nurse Practitioner Family; Visit Provider Nurse Practitioner Family
DX: E11.9 Type 2 diabetes mellitus without complications (principal)
CPT/HCPCS: 36415; 80048; 82043; 82570; 83036

== ENCOUNTER → 2021-01-07 08:04 | Outpatient (CLI) | payer OTHER, SELFPAY ==
[2021-01-07 09:22] LABS: Hemoglobin A1C% w Est Avg Glu 7.5 % (4.0-6.0)
[2021-01-07 09:31] LABS: Alanine Aminotransferase 16 IU/L (<35); Albumin 4.6 g/dL (3.5-5.0); Albumin Globulin Ratio 1.6 (1.0-2.8); Alkaline Phosphatase 74 U/L (38-126); Aspartate Aminotransferase 27 IU/L (14-36); BUN Creatinine Ratio 26.2 (6-22); Bilirubin Total 0.4 mg/dL (0.2-1.3); Blood Urea Nitrogen 22 mg/dL (7-17); Calcium 9.5 mg/dL (8.4-10.2); Carbon Dioxide 28 mmol/L (22-32); Chloride 101 mmol/L (98-107); Estimated Glomerular Filt Rate > 60.0 mL/min (>60); Globulin 2.9 g/dL (1.7-4.1); Glucose 115 mg/dL (70-100); HEMOLYSIS 36 (0-50); Potassium 4.4 mmol/L (3.4-5.1); Sodium 136 mmol/L (137-145); Total Protein 7.5 g/dL (6.3-8.2)
== END ==
PROVIDERS: PCP Nurse Practitioner Family; Referring Provider Nurse Practitioner Family; Visit Provider Nurse Practitioner Family
DX: E11.9 Type 2 diabetes mellitus without complications (principal)
CPT/HCPCS: 36415; 80053; 83036

== ENCOUNTER → 2021-01-19 13:44 | Outpatient (CLI) | payer OTHER, SELFPAY ==
--- NOTE | 2021-01-19 13:46 | DI.RAD.S_ITS ---
PROCEDURE: XR FOOT LT MIN 3V INDICATIONS: l heel pain TECHNIQUE: 3 views of the foot were acquired. COMPARISON: None. FINDINGS: Bones: No fractures or dislocations. No suspicious bony lesions. Soft tissues: No tibiotalar joint effusion. Achilles tendon appears normal. IMPRESSION: No visualized acute fracture or dislocation. However, if clinical concern and/or pain persist, short interval imaging followup in 7-10 days is recommended, as occult injury cannot be definitively excluded. Dictated by: Kaylah Sears M.D. on 01/19/2021 at 14:24 Approved by: Kaylah Sears M.D. on 01/19/2021 at 14:26
== END ==
PROVIDERS: PCP Nurse Practitioner Family; Referring Provider Physician Assistant; Visit Provider Physician Assistant
DX: M79.672 Pain in left foot (principal)
CPT/HCPCS: 73630

== ENCOUNTER → 2021-04-12 07:04 | Outpatient (CLI) | payer OTHER, SELFPAY ==
[2021-04-12 08:16] LABS: Hemoglobin A1C% w Est Avg Glu 6.9 % (4.0-6.0)
[2021-04-12 08:33] LABS: Alanine Aminotransferase 14 IU/L (<35); Albumin 4.4 g/dL (3.5-5.0); Albumin Globulin Ratio 1.3 (1.0-2.8); Alkaline Phosphatase 74 U/L (38-126); Aspartate Aminotransferase 21 IU/L (14-36); BUN Creatinine Ratio 24.7 (6-22); Bilirubin Total 0.6 mg/dL (0.2-1.3); Blood Urea Nitrogen 19 mg/dL (7-17); Calcium 9.6 mg/dL (8.4-10.2); Carbon Dioxide 28 mmol/L (22-32); Chloride 102 mmol/L (98-107); Estimated Glomerular Filt Rate > 60.0 mL/min (>60); Globulin 3.3 g/dL (1.7-4.1); Glucose 106 mg/dL (70-100); HEMOLYSIS 17 (0-50); Potassium 4.1 mmol/L (3.4-5.1); Sodium 139 mmol/L (137-145); Total Protein 7.7 g/dL (6.3-8.2)
== END ==
PROVIDERS: PCP Nurse Practitioner Family; Referring Provider Nurse Practitioner Family; Visit Provider Nurse Practitioner Family
DX: E11.9 Type 2 diabetes mellitus without complications (principal)
CPT/HCPCS: 36415; 80053; 83036

== ENCOUNTER → 2021-11-17 07:03 | Outpatient (CLI) | payer OTHER, SELFPAY ==
[2021-11-17 09:23] LABS: Hemoglobin A1C% w Est Avg Glu 6.9 % (4.0-6.0)
[2021-11-17 09:50] LABS: BUN Creatinine Ratio 27.1 (6-22); Blood Urea Nitrogen 23 mg/dL (7-17); Calcium 9.7 mg/dL (8.4-10.2); Carbon Dioxide 27 mmol/L (22-32); Chloride 106 mmol/L (98-107); Estimated Glomerular Filt Rate > 60.0 mL/min (>60); Glucose 86 mg/dL (70-100); HEMOLYSIS < 15 (0-50); Potassium 4.5 mmol/L (3.4-5.1); Sodium 139 mmol/L (137-145)
== END ==
PROVIDERS: PCP Nurse Practitioner Family; Referring Provider Nurse Practitioner Family; Visit Provider Nurse Practitioner Family
DX: E11.9 Type 2 diabetes mellitus without complications (principal)
CPT/HCPCS: 36415; 80048; 83036

== ENCOUNTER → 2021-12-20 14:57 | Outpatient (CLI) | payer OTHER, SELFPAY ==
--- NOTE | 2021-12-20 14:58 | DI.MG.S_ITS ---
BILATERAL DIGITAL SCREENING MAMMOGRAM 3D/2D WITH CAD: 12/20/2021 CLINICAL: Routine screening. Comparison is made to exams dated: 04/20/2020 mammogram, 02/04/2019 mammogram, and 02/03/2018 mammogram - [facility]. The tissue of both breasts is heterogeneously dense. This may lower the sensitivity of mammography. Current study was also evaluated with a Computer Aided Detection (CAD) system. There are benign calcifications in the right breast. No significant masses, calcifications, or other findings are seen in either breast. There has been no significant interval change. IMPRESSION: BENIGN There is no mammographic evidence of malignancy. A 1 year screening mammogram is recommended. This exam was interpreted at Station ID: [id number]. NOTE: For mammograms, a report in lay terms will be sent to the patient. Approximately 15% of breast malignancies will not be visualized mammographically. In the management of a palpable breast mass, a negative mammogram must not discourage biopsy of a clinically suspicious lesion. Electronically Signed By: Bennei sullivan/rodrigo:12/20/2021 17:28:19 letter sent: Normal Exam ACR BI-RADS Category 2: Benign Finding(s) 3342F
== END ==
PROVIDERS: PCP Nurse Practitioner Family; Referring Provider Nurse Practitioner Family; Visit Provider Nurse Practitioner Family
DX: Z12.31 Encounter for screening mammogram for malignant neoplasm of breast (principal)
CPT/HCPCS: 77063; 77067

== ENCOUNTER → 2022-09-07 07:12 | Outpatient (CLI) | payer OTHER, SELFPAY ==
[2022-09-07 08:39] LABS: Hematocrit 43.8 % (36-46); Hemoglobin 14.5 g/dL (12.0-16.0); Hemoglobin A1C% w Est Avg Glu 6.9 % (4.0-6.0); Mean Corpuscular HGB Conc 33.2 % (30-36); Mean Corpuscular Hemoglobin 27.9 PG (26-34); Mean Corpuscular Volume 83.9 fL (80-100); Platelet Count 339 X10^3/uL (150-400); Red Blood Cell Count 5.22 X10^6/uL (4.0-5.2); Red Cell Distribution Width 14.5 % (11.6-14.8); White Blood Cell Count 6.7 X10^3/uL (4.5-11.0)
[2022-09-07 08:53] LABS: Alanine Aminotransferase 19 IU/L (<35); Albumin 4.5 g/dL (3.5-5.0); Albumin Globulin Ratio 1.4 (1.0-2.8); Alkaline Phosphatase 90 U/L (38-126); Aspartate Aminotransferase 23 IU/L (14-36); Bilirubin Total 0.6 mg/dL (0.2-1.3); Blood Urea Nitrogen 22 mg/dL (7-17); Calcium 9.5 mg/dL (8.4-10.2); Carbon Dioxide 27 mmol/L (22-32); Chloride 101 mmol/L (98-107); Cholesterol 152 mg/dL (140-199); Estimated Glomerular Filt Rate > 60 mL/min (>60); Globulin 3.2 g/dL (1.7-4.1); Glucose 114 mg/dL (70-100); HDL Cholesterol 56 mg/dL (40-60); HEMOLYSIS 19 (0-50); LDL Cholesterol Calculated 68 mg/dL (<100); Potassium 4.3 mmol/L (3.4-5.1); Sodium 140 mmol/L (137-145); Total Protein 7.7 g/dL (6.3-8.2); Triglycerides 142 mg/dL (35-150)
[2022-09-07 09:08] LABS: Creatinine Urine Random 119.2 mg/dL
[2022-09-07 09:16] LABS: Microalbumi Creatinin Ratio Ur 6.7 ug/mg CR (<30); Microalbumin Urine Random 0.8 mg/dL (0-1.6)
== END ==
PROVIDERS: Nurse Practitioner Family; Visit Provider Family Medicine
DX: Z00.00 Encounter for general adult medical examination without abnormal findings (principal); E11.9 Type 2 diabetes mellitus without complications; E78.2 Mixed hyperlipidemia; I10 Essential (primary) hypertension
CPT/HCPCS: 36415; 80053; 80061; 82043; 82570; 83036; 85027

== ENCOUNTER 2022-10-04 08:35 | Emergency (ER) | payer OTHER, SELFPAY ==
[2022-10-04 08:44] VITALS: BP 139/77; PULSE 88; RESP 16; TEMP 36.8; O2SAT 100; BMI 23.6
--- NOTE | 2022-10-04 09:57 | ED.BACK ---
HPI - Back Pain/Injury General Chief Complaint: Back Pain/Injury Stated Complaint: pain lower back or kidney pain is diabetic t-7 Time Seen by Provider: 10/04/22 09:08 Source: patient Mode of arrival: Ambulatory Limitations: no limitations History of Present Illness HPI Narrative: This is a 52-year-old female with history of diabetes and dyslipidemia on metformin and simvastatin and chronic low back pain. Patient states she started having right-sided pain September 27 patient states it has been persistent since then. She has not taken any medications for it she states it is worse with movement particularly bending over, pulling up her pants or squatting. She states it is different than her typical low back pain which sometimes radiates down both legs. She does not have any radiation, numbness, tingling or weakness. She denies any saddle anesthesia. No loss of bowel or bladder control. She denies urinary symptoms no dysuria, urgency frequency or color changes. She denies fevers or chills. No rash or skin changes. No nausea or vomiting. No diarrhea or constipation currently. No black or bloody stools. Patient denies any prior surgeries. No known drug allergies. She typically takes Advil for her back. She has not had any in the last several days. No tobacco, alcohol or illicit. Related Data Home Medications Medication Instructions Recorded Confirmed multivitamin (Multiple Vitamins 1 tab PO QDAY ##0 06/05/17 11/23/21 tablet) aspirin 81 mg tablet,delayed 81 mg PO .QOD #0 tabs 01/07/20 11/23/21 release Previous Rx's Medication Instructions Recorded metformin 1,000 mg tablet 1,000 mg PO BID #180 tabs 11/23/21 simvastatin 20 mg tablet 20 mg PO HS #90 tabs 09/24/22 Glucose: Test Strips #100 ea 10/01/22 meloxicam 7.5 mg tablet 7.5 mg PO BID PRN pain #20 tabs 10/04/22 tamsulosin 0.4 mg capsule (Flomax) 0.4 mg PO DAILY #7 caps 10/04/22 Allergies Allergy/AdvReac Type Severity Reaction Status Date / Time No Known Drug Allergies Allergy Verified 10/04/22 08:44 Review of Systems Review of Systems ROS Unobtainable: All systems reviewed & are unremarkable except as noted in HPI and below Patient History Medical History Decreased GFR (01/2020) Diabetes (2015) Diverticulosis (07/2020) Hyperlipemia (Unknown) Hypertension (Unknown) Shingles (Unknown) Social History household members: spouse Smoking Status: Never smoker second hand exposure: No alcohol intake: current substance use type: does not use eating out: 1-3 times/week Type(s) of exercise: walking and bicycling Smoking Status: Never smoker alcohol intake frequency: holidays/special occasions only Substance Use Type: does not use Exam Narrative Exam Narrative: GENERAL: Alert and oriented x three, female in mild distress. HEENT: Head normocephalic, atraumatic, EOMI, pupils reactive, face symmetric, moist mucous membranes NECK: Supple, full range of motion CARDIOVASCULAR: Regular rate and rhythm without murmurs, rubs or gallops. RESPIRATORY: Breath sounds equal bilaterally, no wheezes rales or rhonchi. ABDOMEN: Soft, nontender. Normoactive bowel sounds all 4 quadrants. No guarding or rebound, rigidity, no mass : No CVA tenderness BACK: No cervical, thoracic or lumbar vertebral point tenderness. Patient has normal range of motion. Patient's gait is [antalgic/normal]. Rectal exam is deferred. Muscle strength is 5/5 in lower extremities, DTRs are 2/4 and lower extremities. Dorsalis pedis and tibialis pulses are 2+ and lower extremities. Sensation is intact in the lower extremities. No rash or skin changes on back or wrapping around to the anterior. EXTREMITIES: Normal range of motion, no clubbing or edema. Neurovascularly intact NEUROLOGICAL: Cranial nerves II through XII grossly intact. Moving all extremities SKIN: Warm, dry, no petechiae, no rashes or lesions. Initial Vital Signs Initial Vital Signs: Vital Signs Temperature 98.3 F 10/04/22 08:44 Pulse Rate 88 10/04/22 08:44 Respiratory Rate 16 10/04/22 08:44 Blood Pressure 139/77 10/04/22 08:44 Pulse Oximetry 100 10/04/22 08:44 Oxygen Delivery Method 10/04/22 08:44 Course Orders Ordered: ED Orders 10/04/22 11:25 CT kidney ureter bladder (KUB) Stat 10/04/22 11:57 CBC Auto Diff [Complete Blood Count AUTO DIFF] Stat CMP [Comprehensive Metabolic Panel] Stat Lipase Stat Discontinued Medications Ketorolac Tromethamine (Ketorolac 30 Mg/Ml Vial) 30 mg IM NOW ONE Stop: 10/04/22 10:09 Last Admin: 10/04/22 10:16 Dose: 30 mg Documented By: BR[place]N Reevaluation(s) Reevaluation #1: Patient currently does not have pain but states she has not been walking around. Her urine shows trace protein and blood no signs of infection. After discussion will proceed for workup for possible kidney stone. Patient and I discussed outpatient follow-up and treatment with Flomax for assumed stone. Time: 11:26 Vital Signs Vital signs: Vital Signs - 8 hr 10/04/22 12:47 10/04/22 13:00 10/04/22 13:30 Temperature 98.7 F Pulse Rate 82 79 73 Respiratory Rate 14 Blood Pressure 126/78 Pulse Oximetry 99 97 98 10/04/22 13:33 10/04/22 13:33 Temperature Pulse Rate 97 H Respiratory Rate Blood Pressure 125/83 Pulse Oximetry 98 MDM - Back Pain/Injury Lab Data Result diagrams: 10/04/22 11:57 10/04/22 11:57 Labs: Lab Results 10/04/22 10/04/22 10/04/22 Range/Units 09:55 11:57 11:57 WBC 7.4 (4.5-11.0) X10^3/uL RBC 4.89 (4.0-5.2) X10^6/uL Hgb 13.6 (12.0-16.0) g/dL Hct 41.5 (36-46) % MCV 84.8 (80-100) fL MCH 27.9 (26-34) PG MCHC 32.9 (30-36) % RDW 14.3 (11.6-14.8) % Plt Count 298 (150-400) X10^3/uL Neut % (Auto) 69.9 (50-75) % Lymph % (Auto) 18.9 L (25-40) % [place] % (Auto) 7.4 (3-14) % Eos % (Auto) 3.2 (2-4) % Baso % (Auto) 0.6 (0-2) % Neut # (Auto) 5200 (6940-3408) /uL Lymph # (Auto) 1400 (9532-8794) /uL [place] # (Auto) 500 (0-900) /uL Eos # (Auto) 200 (0-450) /uL Baso # (Auto) 0 (0-100) /uL Sodium 138 (137-145) mmol/L Potassium 4.0 (3.4-5.1) mmol/L Chloride 104 (98-107) mmol/L Carbon Dioxide 28 (22-32) mmol/L BUN 21 H (7-17) mg/dL Creatinine 0.85 (0.52-1.04) mg/dL Estimated GFR > 60 (>60) mL/min BUN/Creatinine Ratio 24.7 H (6-22) Glucose 127 H (70-100) mg/dL Calcium 9.1 (8.4-10.2) mg/dL Total Bilirubin 0.5 (0.2-1.3) mg/dL AST 20 (14-36) IU/L ALT 19 (<35) IU/L Alkaline Phosphatase 83 (38-126) U/L Total Protein 7.5 (6.3-8.2) g/dL Albumin 4.2 (3.5-5.0) g/dL Globulin 3.3 (1.7-4.1) g/dL Albumin/Globulin Ratio 1.3 (1.0-2.8) Lipase 135 (23-300) U/L Urine Color Yellow Urine Appearance Clear Urine pH 7.0 (4.5-8.0) Ur Specific [place] 1.015 (1.000-1.035) Urine Protein Trace H (Negative) Urine Glucose (UA) Negative (Negative) g/dL Urine Ketones Trace H (NEGATIVE) Urine Occult Blood 1+ H (Negative) Urine Nitrate Negative (Negative) Urine Bilirubin Negative (NEGATIVE) Urine Urobilinogen 0.2 (0.2) E.U./dL Ur Leukocyte Esterase Negative (NEGATIVE) Urine RBC 1-5/hpf (0-5/HPF) Urine WBC 0-1/hpf (0-5/HPF) Urine Bacteria None seen (None) Ur Culture Indicated? Cult not indicated MDM Narrative Medical decision making narrative: This is a 52-year-old female with history of low back pain with different pattern. She is had persistent right flank pain it is worse with movement. No radiation. UA shows blood, protein but no nitrates or leuks or signs of infection. Discussed with patient plan for CT KUB and labs this does not show any change to her renal function or major lab abnormalities. CT KUB does show a distal 4 mm stone on the right. Patient's pain was much improved with Toradol and has resolved at this time. Plan for pain management, Flomax, follow-up with urology if persisting and return precautions. Patient feels comfortable with this plan. Discharge Plan Departure Patient Disposition: Home Clinical Impression: Right low back pain, Kidney stone on right side Instructions: DI for Kidney Stones Activity Restrictions/Additional Instructions: Please follow-up with urology if your symptoms are not improving over the next several days. Referral is included below. Please call to set up an appointment. Take Flomax once daily until gone. You may take meloxicam 1 tablet every 12 hours for pain. Do not take other NSAIDs such as Aleve, ibuprofen or Advil with this medication. You may take Tylenol up to a 1000 mg every 6 hours along with meloxicam for pain. Prescription sent to [facility] in [place]. Please return for fevers, worsening abdominal, back or flank pain that is uncontrolled at home, persistent vomiting, inability to urinate or other new or concerning changes. Prescriptions: New tamsulosin [Flomax] 0.4 mg capsule 0.4 mg PO DAILY Qty: 7 0RF meloxicam 7.5 mg tablet 7.5 mg PO BID PRN (Reason: pain) Qty: 20 0RF No Action multivitamin [Multiple Vitamins] 1 EACH tablet 1 tab PO QDAY Qty: 0 aspirin 81 mg tablet,delayed release (DR/EC) 81 mg PO .QOD Qty: 0 simvastatin 20 mg tablet 20 mg PO HS Qty: 90 3RF (DME) Glucose: Test Strips 0 .Route .MEDSUPPLY Qty: 100 2RF Dose Instruction: As directed Rx Instructions: Use to test blood sugars once daily. BRAND PER INSURANCE. metformin 1,000 mg tablet 1,000 mg PO BID Qty: 180 3RF Referrals: Alethea Hammond DO [Primary Care Provider] - Visit Report Forms: Patient Portal/API
[2022-10-04] MEDS: KETOROLAC 30 MG/ML VIAL IM (10:16)
[2022-10-04 10:34] LABS: Appearance Urine UA CLEAR; Bilirubin Urine UA NEGATIVE (NEGATIVE); Color Urine UA YELLOW; Glucose Urine UA NEGATIVE (Negative); Ketones Urine UA TRACE (NEGATIVE); Leukocyte Esterase Urine UA NEGATIVE (NEGATIVE); Nitrite Urine UA NEGATIVE (Negative); Occult Blood Urine UA 1+ (Negative); Protein Urine UA TRACE (Negative); Specific Gravity Urine UA 1.015 (1.000-1.035); Urobilinogen Urine UA 0.2 E.U./dL (0.2)
[2022-10-04 10:43] LABS: Bacteria Urine None Seen; Culture Indicated Urine Cult Not Indicated; RBC Urine 1-5/HPF (0-5/HPF); WBC Urine 0-1/HPF (0-5/HPF)
--- NOTE | 2022-10-04 11:25 | DI.CT.S_ITS ---
PROCEDURE: CT KIDNEY URETER BLADDER (KUB) INDICATIONS: right flank pain TECHNIQUE: Axial sections were acquired from the lung bases to the pubic symphysis. Coronal and sagittal reformats were performed. For radiation dose reduction, the following was used: automated exposure control, adjustment of mA and/or kV according to patient size. COMPARISON: None. FINDINGS: Image quality: Excellent. Lung bases: Unremarkable. Heart: No significant findings. URINARY: Right Kidney: No stones or hydronephrosis. Right Ureter: The distal most aspect of the ureter is obscured secondary to overlying bowel loops. However, a 4 mm calcification is noted within the lower pelvis potentially along the ureteral course. It is seen on series 2, image 72. Left Kidney: No stones or hydronephrosis. Left Ureter: No hydroureter. Bladder: Normal wall thickness. No stones. ABDOMEN: Liver: Liver is enlarged measuring 18.4 cm with steatosis. Gallbladder: Unremarkable. Biliary ducts: Unremarkable. Pancreas: Unremarkable. Spleen: Unremarkable. Adrenal Glands: Unremarkable. Stomach and Bowel: Stomach, small bowel loops, and colon are nonobstructive. Colonic diverticula are present. Peritoneum: No abnormal intraperitoneal fluid. No free air. Ventral Wall: No hernia. Abdominal Nodes: No enlarged retroperitoneal or mesenteric lymph nodes. Vessels: Aorta and inferior vena cava are normal in size. PELVIS: Pelvic Organs: Unremarkable. Pelvic Nodes: Unremarkable. Miscellaneous: No inguinal hernias are seen. Bones: Grade 1 anterolisthesis of L5 on S1. IMPRESSION: Possible nonobstructing distal right ureteral calcification as above. Diverticulosis. Dictated by: Kaylah Sears M.D. on 10/04/2022 at 12:27 Approved by: Kaylah Sears M.D. on 10/04/2022 at 12:32
[2022-10-04 12:13] LABS: Add Manual Diff / Slide Review NO; Basophils Absolute Auto 0 /uL (0-100); Basophils Percent Auto 0.6 % (0-2); Eosinophils Absolute Auto 200 /uL (0-450); Eosinophils Percent Auto 3.2 % (2-4); Hematocrit 41.5 % (36-46); Hemoglobin 13.6 g/dL (12.0-16.0); Lymphocytes Absolute Auto 1400 /uL (1100-4500); Lymphocytes Percent Auto 18.9 % (25-40); Mean Corpuscular HGB Conc 32.9 % (30-36); Mean Corpuscular Hemoglobin 27.9 PG (26-34); Mean Corpuscular Volume 84.8 fL (80-100); Monocytes Absolute Auto 500 /uL (0-900); Monocytes Percent Auto 7.4 % (3-14); Neutrophils Absolute Auto 5200 /uL (1500-7000); Neutrophils Percent Auto 69.9 % (50-75); Platelet Count 298 X10^3/uL (150-400); Red Blood Cell Count 4.89 X10^6/uL (4.0-5.2); Red Cell Distribution Width 14.3 % (11.6-14.8); White Blood Cell Count 7.4 X10^3/uL (4.5-11.0)
[2022-10-04 12:25] LABS: Alanine Aminotransferase 19 IU/L (<35); Albumin 4.2 g/dL (3.5-5.0); Albumin Globulin Ratio 1.3 (1.0-2.8); Alkaline Phosphatase 83 U/L (38-126); Aspartate Aminotransferase 20 IU/L (14-36); BUN Creatinine Ratio 24.7 (6-22); Bilirubin Total 0.5 mg/dL (0.2-1.3); Blood Urea Nitrogen 21 mg/dL (7-17); Calcium 9.1 mg/dL (8.4-10.2); Carbon Dioxide 28 mmol/L (22-32); Chloride 104 mmol/L (98-107); Estimated Glomerular Filt Rate > 60 mL/min (>60); Globulin 3.3 g/dL (1.7-4.1); Glucose 127 mg/dL (70-100); HEMOLYSIS < 15 (0-50); Lipase 135 U/L (23-300); Sodium 138 mmol/L (137-145); Total Protein 7.5 g/dL (6.3-8.2)
[2022-10-04 12:47] VITALS: BP 126/78; PULSE 82; RESP 14; TEMP 37.1; O2SAT 99
[2022-10-04 13:00] VITALS: PULSE 79; O2SAT 97
[2022-10-04 13:30] VITALS: PULSE 73; O2SAT 98
[2022-10-04 13:33] VITALS: BP 125/83; PULSE 97; O2SAT 98
== END 2022-10-04 13:37 | disposition home or self-care (01) ==
PROVIDERS: Emergency Provider Emergency Medicine; PCP Family Medicine
DX: N20.0 Calculus of kidney (principal); M54.50 Low back pain, unspecified
CPT/HCPCS: 74176; 80053; 81001; 83690; 85025; 96372; 99284; J1885

== ENCOUNTER → 2022-12-03 09:25 | Outpatient (CLI) | payer OTHER, SELFPAY ==
[2022-12-03 10:22] LABS: Appearance Urine UA CLEAR; Bilirubin Urine UA NEGATIVE (NEGATIVE); Color Urine UA YELLOW; Glucose Urine UA NEGATIVE (Negative); Ketones Urine UA NEGATIVE (NEGATIVE); Leukocyte Esterase Urine UA NEGATIVE (NEGATIVE); Nitrite Urine UA NEGATIVE (Negative); Occult Blood Urine UA TRACE-INTACT (Negative); Protein Urine UA NEGATIVE (Negative); Specific Gravity Urine UA 1.015 (1.000-1.035); Urobilinogen Urine UA 0.2 E.U./dL (0.2)
[2022-12-03 10:25] LABS: pH Urine UA 6.5 (4.5-8.0)
[2022-12-03 11:23] LABS: Creatinine Urine Random 86.2 mg/dL
[2022-12-03 11:28] LABS: Microalbumin Urine Random < 0.6 mg/dL (0-1.6)
== END ==
PROVIDERS: PCP Family Medicine; Referring Provider Family Medicine; Visit Provider Family Medicine
DX: R31.9 Hematuria, unspecified (principal); E11.9 Type 2 diabetes mellitus without complications; I10 Essential (primary) hypertension
CPT/HCPCS: 81003; 82043; 82570

== ENCOUNTER → 2022-12-20 17:18 | Outpatient (CLI) | payer OTHER, SELFPAY ==
--- NOTE | 2022-12-20 17:19 | DI.MG.S_ITS ---
BILATERAL DIGITAL SCREENING MAMMOGRAM 3D/2D WITH CAD: 12/20/2022 CLINICAL: Routine screening. Comparison is made to exams dated: 12/20/2021 mammogram, 04/20/2020 mammogram, and 02/04/2019 mammogram - [facility]. There are scattered areas of fibroglandular density in both breasts (category b / 25%-50% glandular tissue). Current study was also evaluated with a Computer Aided Detection (CAD) system. There are benign calcifications in the right breast. No significant masses, calcifications, or other findings are seen in either breast. There has been no significant interval change. IMPRESSION: BENIGN There is no mammographic evidence of malignancy. A 1 year screening mammogram is recommended. Based on the Tyrer Cuzick model (a risk assessment model) the patient's lifetime risk is 7.7% and her 10 year risk is 2.2%. According to the ACR, ACS, and NCCN guidelines, an annual breast MRI exam along with mammogram is recommended if the patient's lifetime risk is 20% or greater. This exam was interpreted at Station ID: [id number]. NOTE: For mammograms, a report in lay terms will be sent to the patient. Approximately 15% of breast malignancies will not be visualized mammographically. In the management of a palpable breast mass, a negative mammogram must not discourage biopsy of a clinically suspicious lesion. Electronically Signed By: Haydee trejo/rodrigo:12/21/2022 11:54:46 letter sent: Normal Exam ACR BI-RADS Category 2: Benign Finding(s) 3342F
== END ==
PROVIDERS: PCP Family Medicine; Referring Provider Family Medicine; Visit Provider Family Medicine
DX: Z12.31 Encounter for screening mammogram for malignant neoplasm of breast (principal)
CPT/HCPCS: 77063; 77067

== ENCOUNTER → 2023-01-19 08:32 | Outpatient (CLI) | payer OTHER, SELFPAY ==
[2023-01-19 09:12] LABS: Hemoglobin A1C% w Est Avg Glu 7.7 % (4.0-6.0)
[2023-01-19 09:16] LABS: BUN Creatinine Ratio 21.6 (6-22); Blood Urea Nitrogen 19 mg/dL (7-17); Calcium 8.9 mg/dL (8.4-10.2); Carbon Dioxide 28 mmol/L (22-32); Chloride 100 mmol/L (98-107); Cholesterol 156 mg/dL (140-199); Estimated Glomerular Filt Rate > 60 mL/min (>60); Glucose 132 mg/dL (70-100); HDL Cholesterol 53 mg/dL (40-60); HEMOLYSIS < 15 (0-50); LDL Cholesterol Calculated 75 mg/dL (<100); Potassium 4.3 mmol/L (3.4-5.1); Sodium 135 mmol/L (137-145); Triglycerides 139 mg/dL (35-150)
== END ==
PROVIDERS: PCP Family Medicine; Referring Provider Family Medicine; Visit Provider Family Medicine
DX: E11.9 Type 2 diabetes mellitus without complications (principal); E78.2 Mixed hyperlipidemia; I10 Essential (primary) hypertension
CPT/HCPCS: 36415; 80048; 80061; 83036

== ENCOUNTER → 2023-05-13 11:07 | Outpatient (CLI) | payer OTHER, SELFPAY ==
[2023-05-13 12:32] LABS: Add Manual Diff / Slide Review NO; Basophils Absolute Auto 100 /uL (0-100); Basophils Percent Auto 1.1 % (0-2); Eosinophils Absolute Auto 500 /uL (0-450); Eosinophils Percent Auto 6.2 % (2-4); Hematocrit 40.5 % (36-46); Hemoglobin 13.7 g/dL (12.0-16.0); Lymphocytes Absolute Auto 1500 /uL (1100-4500); Lymphocytes Percent Auto 17.8 % (25-40); Mean Corpuscular HGB Conc 33.7 % (30-36); Mean Corpuscular Hemoglobin 28.1 PG (26-34); Mean Corpuscular Volume 83.3 fL (80-100); Monocytes Absolute Auto 600 /uL (0-900); Monocytes Percent Auto 7.3 % (3-14); Neutrophils Absolute Auto 5900 /uL (1500-7000); Neutrophils Percent Auto 67.6 % (50-75); Platelet Count 333 X10^3/uL (150-400); Red Blood Cell Count 4.87 X10^6/uL (4.0-5.2); Red Cell Distribution Width 14.3 % (11.6-14.8); White Blood Cell Count 8.7 X10^3/uL (4.5-11.0)
[2023-05-14 07:09] LABS: Labcorp Hemoglobin (Hb) A1c 6.9 % (4.8-5.6)
== END ==
PROVIDERS: PCP Family Medicine; Referring Provider Family Medicine; Visit Provider Family Medicine
DX: E11.9 Type 2 diabetes mellitus without complications (principal); E78.2 Mixed hyperlipidemia; I10 Essential (primary) hypertension
CPT/HCPCS: 36415; 83036; 85025

== ENCOUNTER → 2023-11-30 08:22 | Outpatient (CLI) | payer OTHER, SELFPAY ==
[2023-11-30 09:17] LABS: Cholesterol 142 mg/dL (140-199); HDL Cholesterol 52 mg/dL (40-60); Hemoglobin A1C% w Est Avg Glu 6.7 % (4.0-6.0); LDL Cholesterol Calculated 60 mg/dL (<100); Triglycerides 151 mg/dL (35-150)
[2023-11-30 09:37] LABS: Creatinine Urine Random 242.4 mg/dL
[2023-11-30 09:42] LABS: Microalbumi Creatinin Ratio Ur 10.7 ug/mg CR (<30); Microalbumin Urine Random 2.6 mg/dL (0-1.6)
== END ==
LOC: LAB 08:23
PROVIDERS: PCP Family Medicine; Referring Provider Family Medicine; Visit Provider Family Medicine
DX: E11.9 Type 2 diabetes mellitus without complications (principal); E78.2 Mixed hyperlipidemia; I10 Essential (primary) hypertension
CPT/HCPCS: 36415; 80061; 82043; 82570; 83036; 86140

== ENCOUNTER → 2023-12-21 08:05 | Outpatient (CLI) | payer OTHER, SELFPAY ==
--- NOTE | 2023-12-21 08:06 | DI.MG.S_ITS ---
BILATERAL DIGITAL SCREENING MAMMOGRAM 3D/2D WITH CAD: 12/21/2023 CLINICAL: Routine screening. Comparison is made to exams dated: 12/20/2022 mammogram, 12/20/2021 mammogram, and 04/20/2020 mammogram - [facility]. There are scattered areas of fibroglandular density in both breasts (category b / 25%-50% glandular tissue). Current study was also evaluated with a Computer Aided Detection (CAD) system. There are benign calcifications in the right breast. No significant masses, calcifications, or other findings are seen in either breast. There has been no significant interval change. IMPRESSION: BENIGN There is no mammographic evidence of malignancy. A 1 year screening mammogram is recommended. Based on the Tyrer Cuzick model (a risk assessment model) the patient's lifetime risk is 7.6% and her 10 year risk is 2.3%. According to the ACR, ACS, and NCCN guidelines, an annual breast MRI exam along with mammogram is recommended if the patient's lifetime risk is 20% or greater. This exam was interpreted at Station ID: [id number]. NOTE: For mammograms, a report in lay terms will be sent to the patient. Approximately 15% of breast malignancies will not be visualized mammographically. In the management of a palpable breast mass, a negative mammogram must not discourage biopsy of a clinically suspicious lesion. Electronically Signed By: Lesa ruano/rodrigo:12/23/2023 16:38:20 letter sent: Normal Exam ACR BI-RADS Category 2: Benign Finding(s) 3342F
== END ==
LOC: MAMMO 08:05
PROVIDERS: PCP Family Medicine; Referring Provider Family Medicine; Visit Provider Family Medicine
DX: Z12.31 Encounter for screening mammogram for malignant neoplasm of breast (principal); R92.323 Mammographic fibroglandular density, bilateral breasts
CPT/HCPCS: 77063; 77067

== ENCOUNTER → 2024-02-04 15:16 | Outpatient (CLI) | payer OTHER, SELFPAY ==
[2024-02-04 17:24] LABS: Hemoglobin A1C% w Est Avg Glu 6.5 % (4.0-6.0)
== END ==
PROVIDERS: PCP Family Medicine; Referring Provider Family Medicine; Visit Provider Family Medicine
DX: E11.9 Type 2 diabetes mellitus without complications (principal)
CPT/HCPCS: 36415; 83036

== ENCOUNTER → 2024-06-17 09:15 | Outpatient (CLI) | payer OTHER, SELFPAY ==
--- NOTE | 2024-06-17 10:37 | DI.RAD.S_ITS ---
PROCEDURE: XR KUB INDICATIONS: Hematuria TECHNIQUE: One view of the abdomen acquired. COMPARISON: None. FINDINGS: Surgical changes and devices: None. Bowel: Bowel gas pattern is normal. Soft tissues: There is a 4 mm hyperdensity within the right hemipelvis. Visualized solid organ contours appear normal in size. Bones: No suspicious bony lesions. IMPRESSION: There is a 4 mm hyperdensity within the right hemipelvis which may correspond to a ureteral calculus. However, this may also represent a phlebolith. Correlation with a CT scan is suggested. Dictated by: Ja Mireles M.D. on 06/17/2024 at 15:23 Approved by: Ja Mireles M.D. on 06/17/2024 at 15:29
== END ==
PROVIDERS: PCP Family Medicine; Referring Provider Nurse Practitioner Family; Visit Provider Nurse Practitioner Family
DX: R10.9 Unspecified abdominal pain (principal); R31.9 Hematuria, unspecified
CPT/HCPCS: 74018; 87086

== ENCOUNTER → 2024-06-25 10:00 | Outpatient (CLI) | payer OTHER, SELFPAY ==
--- NOTE | 2024-06-25 10:02 | DI.RAD.S_ITS ---
PROCEDURE: XR KUB INDICATIONS: f/u Left kidney stone TECHNIQUE: One view of the abdomen acquired. COMPARISON: [facility], CT, CT KIDNEY URETER BLADDER (KUB), 10/04/2022, 11:42. [facility], CR, XR KUB, 06/17/2024, 10:47. FINDINGS: Surgical changes and devices: None. Bowel: Bowel gas pattern is normal. Soft tissues: No kidney stones identified. No suspicious abdominal calcifications. Visualized solid organ contours appear normal in size. Bones: No suspicious bony lesions. IMPRESSION: No kidney stones identified. Dictated by: Luciano Garay M.D. on 06/25/2024 at 22:38 Approved by: Luciano Garay M.D. on 06/25/2024 at 22:39
[2024-06-25 10:58] LABS: Appearance Urine UA CLEAR; Bilirubin Urine UA NEGATIVE (NEGATIVE); Color Urine UA YELLOW; Glucose Urine UA NEGATIVE (Negative); Ketones Urine UA NEGATIVE (NEGATIVE); Leukocyte Esterase Urine UA NEGATIVE (NEGATIVE); Nitrite Urine UA NEGATIVE (Negative); Occult Blood Urine UA NEGATIVE (Negative); Protein Urine UA NEGATIVE (Negative); Specific Gravity Urine UA 1.015 (1.000-1.035); Urobilinogen Urine UA 0.2 E.U./dL (0.2)
[2024-06-25 12:19] LABS: pH Urine UA 7.5 (4.5-8.0)
[2024-06-25 12:21] LABS: Bacteria Urine None Seen; Culture Indicated Urine Cult Not Indicated; RBC Urine None Seen (0-5/HPF); Squamous Epithelial Cell Urine None Seen (0-5/HPF); Urine Volume 10mL (spun); WBC Urine None Seen (0-5/HPF)
== END ==
PROVIDERS: PCP Family Medicine; Referring Provider Family Medicine; Visit Provider Family Medicine
DX: N20.0 Calculus of kidney (principal)
CPT/HCPCS: 74018; 81001

== ENCOUNTER → 2024-08-01 08:14 | Outpatient (CLI) | payer OTHER, SELFPAY ==
[2024-08-01 09:05] LABS: Hemoglobin A1C% w Est Avg Glu 6.7 % (4.0-6.0)
== END ==
PROVIDERS: PCP Family Medicine; Referring Provider Family Medicine; Visit Provider Family Medicine
DX: R10.9 Unspecified abdominal pain (principal)
CPT/HCPCS: 36415; 83036

== ENCOUNTER → 2025-01-28 06:58 | Outpatient (CLI) | payer OTHER, SELFPAY ==
[2025-01-28 08:06] LABS: Add Manual Diff / Slide Review NO; Basophils Absolute Auto 100 /uL (0-100); Basophils Percent Auto 1.4 % (0-2); Eosinophils Absolute Auto 400 /uL (0-450); Eosinophils Percent Auto 5.8 % (2-4); Hematocrit 42.2 % (36-46); Lymphocytes Absolute Auto 1500 /uL (1100-4500); Lymphocytes Percent Auto 21.2 % (25-40); Mean Corpuscular HGB Conc 33.2 % (30-36); Mean Corpuscular Hemoglobin 28.7 PG (26-34); Mean Corpuscular Volume 86.4 fL (80-100); Monocytes Absolute Auto 700 /uL (0-900); Monocytes Percent Auto 9.4 % (3-14); Neutrophils Absolute Auto 4500 /uL (1500-7000); Neutrophils Percent Auto 62.2 % (50-75); Platelet Count 305 X10^3/uL (150-400); Red Blood Cell Count 4.88 X10^6/uL (4.0-5.2); Red Cell Distribution Width 14.1 % (11.6-14.8); White Blood Cell Count 7.2 X10^3/uL (4.5-11.0)
[2025-01-28 08:24] LABS: Hemoglobin A1C% w Est Avg Glu 6.8 % (4.0-6.0)
[2025-01-28 08:40] LABS: Alanine Aminotransferase 22 IU/L (<35); Albumin 4.7 g/dL (3.5-5.0); Albumin Globulin Ratio 1.8 (1.0-2.8); Alkaline Phosphatase 77 U/L (38-126); Aspartate Aminotransferase 30 IU/L (14-36); Blood Urea Nitrogen 25 mg/dL (7-17); Calcium 9.8 mg/dL (8.4-10.2); Carbon Dioxide 19 mmol/L (22-32); Chloride 102 mmol/L (98-107); Cholesterol 164 mg/dL (140-199); Estimated Glomerular Filt Rate > 60 mL/min (>60); Globulin 2.6 g/dL (1.7-4.1); Glucose 82 mg/dL (70-100); HDL Cholesterol 62 mg/dL (40-60); HEMOLYSIS < 15 (0-50); LDL Cholesterol Calculated 73 mg/dL (<100); Potassium 4.4 mmol/L (3.4-5.1); Sodium 137 mmol/L (137-145); Total Protein 7.3 g/dL (6.3-8.2); Triglycerides 143 mg/dL (35-150)
[2025-01-29 03:40] LABS: CRP, High Sensitivity 3.88 mg/L (0.00-3.00)
== END ==
PROVIDERS: PCP Family Medicine; Referring Provider Family Medicine; Visit Provider Family Medicine
DX: Z01.419 Encounter for gynecological examination (general) (routine) without abnormal findings (principal); E11.69 Type 2 diabetes mellitus with other specified complication; E78.5 Hyperlipidemia, unspecified
CPT/HCPCS: 36415; 80053; 80061; 83036; 85025; 86140

== ENCOUNTER → 2025-05-13 12:15 | Outpatient (CLI) | payer OTHER, SELFPAY ==
[2025-05-13 13:21] LABS: Hemoglobin A1C% w Est Avg Glu 6.6 % (4.0-6.0)
== END ==
PROVIDERS: PCP Family Medicine; Referring Provider Family Medicine; Visit Provider Family Medicine
DX: E11.29 Type 2 diabetes mellitus with other diabetic kidney complication (principal); R80.9 Proteinuria, unspecified
CPT/HCPCS: 36415; 83036

== ENCOUNTER → 2025-08-23 06:58 | Outpatient (CLI) | payer OTHER, SELFPAY ==
[2025-08-23 07:55] LABS: Hemoglobin A1C% w Est Avg Glu 6.8 % (4.0-6.0)
== END ==
PROVIDERS: PCP Family Medicine; Referring Provider Family Medicine; Visit Provider Family Medicine
DX: E11.29 Type 2 diabetes mellitus with other diabetic kidney complication (principal); R80.9 Proteinuria, unspecified
CPT/HCPCS: 36415; 83036

== ENCOUNTER → 2025-09-10 14:19 | Outpatient (CLI) | payer OTHER, SELFPAY ==
--- NOTE | 2025-09-10 14:20 | DI.RAD.S_ITS ---
PROCEDURE: XR DEXA AXIAL SKELETON
== END ==
LOC: RAD 14:19
PROVIDERS: PCP Family Medicine; Referring Provider Family Medicine; Visit Provider Family Medicine
DX: M81.0 Age-related osteoporosis without current pathological fracture (principal)
CPT/HCPCS: 77080